=== PATIENT | female | born 1975 | race Caucasian/White ===

== ENCOUNTER 2018-12-05 22:34 | Observation (INO) | payer OTHER, SELFPAY ==
[2018-12-05 22:35] VITALS: BP 171/109; PULSE 94; RESP 18; TEMP 37.2; O2SAT 99; BMI 23.1
--- NOTE | 2018-12-05 22:51 | EKG12_ITS ---
Test Reason : MENTAL HEALTH Blood Pressure : / mmHG Vent. Rate : 092 BPM Atrial Rate : 092 BPM P-R Int : 114 ms QRS Dur : 070 ms QT Int : 394 ms P-R-T Axes : 060 060 066 degrees QTc Int : 487 ms Normal sinus rhythm Prolonged QT Abnormal ECG Reconfirmed by GANGA MARTIN, CHARLENE ([id number]), staff editor LATANYA IGNACIO ([id number] on 12/12/2018 9:02:27 AM Referred By: BHUMIKA Confirmed By:CHARLENE SCHULER MD
--- NOTE | 2018-12-05 23:35 | ED.RN ---
PT NOT COOPERATIVE. REPEATING PHRASES. VERBALLY CHALLENGING. DOES NOT EASILY FOLLOW DIRECTIONS.
[2018-12-05 23:39] LABS: Internal QC Validated? YES +Cl - CLEAR BKGD; Pregnancy, Urine Negative Negative
[2018-12-05 23:41] LABS: Bacteria 0 SEEN /hpf (None Seen); Mucous, Urine 0 SEEN /hpf (<or=2+); Red Blood Cells-Urine 0 SEEN /hpf (0-5); White Blood Cells 0 SEEN /hpf (0-5)
[2018-12-05 23:47] LABS: Color, Urine Straw (Yellow); Glucose, Dipstick Normal (Normal); Ketone-Dipstick Negative (Negative); Leukocyte Esterase-Dipstick Negative /ul (Negative); Nitrite-Dipstick Negative (Negative); Occult Blood-Urine Negative /ul (Negative); Protein-Dipstick Negative (Negative); Specific Gravity, Urine 1.005 (1.002-1.030); Urine Bilirubin Dipstick Negative (Negative); Urine Clarity Clear (Clear); Urine Urobilinogen Normal (Normal)
[2018-12-05 23:49] LABS: Amphetamine Urine VISTA NEGATIVE (<1000 ng/mL); Barbiturate Urine VISTA NEGATIVE (< 200 ng/mL); Benzodiazepine Urine VISTA NEGATIVE (< 200 ng/mL); Cocaine Urine VISTA NEGATIVE (< 300 ng/mL); Ecstacy Urine VISTA NEGATIVE (< 500 ng/mL); Methadone Urine VISTA NEGATIVE (< 300 ng/mL); PCP Urine VISTA NEGATIVE (< 25 ng/mL); THC Urine VISTA POSITIVE (< 50 ng/mL); Vista UDS pH Range 6
[2018-12-05] MEDS: Ziprasidone IM 20 MG/ML VIAL IM (23:52)
[2018-12-05 23:54] LABS: Squamous Epithelial Cells - UA 0-5 SEEN /hpf (5-10)
[2018-12-06] VITALS (18 sets, daily range): BP systolic 88–125; BP diastolic 51–94; PULSE 62–85; RESP 15–18; TEMP 36.8–37.3; O2SAT 93–99; BMI 23.1; BMI 20.1
--- NOTE | 2018-12-06 00:23 | ED.DCSUM_ITS ---
- ER Visit Summary Date of Service: 12/06/18 Chief Complaint: Change in mental status History of Present Illness: The patient is a 43 F presenting for evaluation secondary to change in status. Patient has no prior history of psychiatric disease, has been clean from alcohol and drugs for quite some time but did have a past history of IV drug abuse. Patient's states that she started treatment for bronchitis 2 days ago with azithromycin and prednisone. He reports that she was acting somewhat abnormally last night, but was able to basically come back to baseline and sleep. However, today he reports that he got a call from someone that she was acting completely and totally abnormal and EMS was called to bring the patient to the emergency department. On presentation to the emergency department, the patient is paranoid, reports hallucinations, is combative and appears to have some flight of ideas. denies that she has had recent head injuries. He does not think that she has relapsed into drug abuse or alcohol abuse. Additional review of systems from the patient is otherwise unable to be obtained due to her level of uncooperativeness Physical Examination: Well-nourished well-developed age-appropriate female sitting in the bed guarded but not in physiologic distress. Normal vital signs normal temperature. Head normocephalic. PRL, EOMI, no evidence of nystagmus. Moist mucous membranes. Neck was supple. Heart was regular rate and rhythm, lungs sounds clear. Abdomen soft and nontender. Back nontender, extremities nontender nonedematous. Skin normal color no rash. Patient was alert and oriented to person. She is able to ambulate and exhibits no lateralizing neurological deficits. She has incoherent thoughts as she seems to be prefixed on God, she is very paranoid with poor insight and poor judgment and reporting hallucinations. Test Results: EKG has a significant amount of artifact but shows no signs of arrhythmia and a sinus rate of 92. Urinalysis is negative. Toxicology screen positive for THC which the patient's states is occasional and recreational, CBC chemistry liver unremarkable. Carbon monoxide mildly elevated at 8. Ethanol level negative. Ammonia level negative. CT brain negative. Emergency Department Course and Treatment: Patient presented secondary to altered mental status. On interviewing the patient she seems like she potentially has an element of psychosis as she is prefixed on whether there is one or more than one God, she is making people repeat things #3 or #6 times as if she is prefixed on these numbers, she has no insight and no judgment, and is occasionally combative. Patient was not cooperating with workup and I was concerned for the possibility of underlying medical issue causing this, so she was given Geodon and subsequently Ativan. Workup as noted above is negative. Patient has no prior history of psychiatric disease and does have recent history of being placed on prednisone for bronchitis. 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 I believe the patient requires admission for observation until this resolves. Hospitalist after evaluating the patient feels that due to the psychosis involved, the patient needs a psyc eval and potential psyc disposition. The patient is currently too sedate to undergo psyc eval, so she will be observed until she is awake enough to speak with the crisis counselor. Disposition: Admission pending crisis eval Impression: 1. 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 It may contain incorrect words, spelling, and punctuation that were not noted in review of the chart prior to signing ED Disposition - Plan for ED Patient: Referrals: Tnoi Yancey MD [Primary Care Provider] -
[2018-12-06] MEDS: LORazepam 2 MG/ML Syringe IM (00:29)
[2018-12-06 00:39] LABS: Absolute Lymphocyte Count 2.18 X10^3/ul (0.83-4.51); Absolute Neutrophil Count 5.7 X10^3/uL (2.0-7.7); Basophil# 0.02 X10^3/uL; Basophil% 0.2 % (0-1); Eosinophil# 0.03 X10^3/uL; Eosinophils% 0.3 % (0-5); Hematocrit 44.5 % (37-47); Hemoglobin 14.8 g/dl (12.0-15.0); Lymphocyte # 2.18 X10^3/ul (4.0); Lymphocyte % 25.2 % (19-41); Mean Corp Hgb Conc 33.3 g/gl (32-36); Mean Corpuscular Hgb 32.3 pg (27.0-32.0); Mean Corpuscular Volume 97.2 fL (81-99); Mean Platelet Vol. 9.7 fl (6.2-12.0); Monocyte# 0.71 X10^3/uL; Monocyte% 8.2 % (0-10); Neutrophil # 5.68 X10^3/uL (2.7-7.7); Neutrophil % 65.9 % (47-70); Platelet Count 222 K/mm3 (150-450); RBC Distribution Width CV 13.1 % (11.6-14.6); RBC Distribution Width SD 46.2 fl (35.1-43.9); Red Blood Count 4.58 M/mm3 (4.2-5.4); White Blood Count 8.6 K/mm3 (4.4-11.0)
[2018-12-06 00:40] LABS: Carboxyhemoglobin Frac (CO) 8.5 % (0.0-1.5)
[2018-12-06 00:43] LABS: POSITIVE COUNT NO; POSITIVE DIFFERENTIAL NO; POSITIVE MORPHOLOGY NO
[2018-12-06 00:48] LABS: AST(SGOT) 11 U/L (15-37); Alanine Aminotransfer ALT/SGPT 19 U/L (13-56); Albumin, Serum 3.8 g/dL (3.2-5.0); Alkaline Phosphatase 100 U/L (45-117); Anion Gap 10 (5-15); BUN 6 mg/dL (7-18); BUN/Creat Ratio 9.3 RATIO (10-20); Bilirubin, Direct 0.17 mg/dL (0.00-0.30); Calcium,Total 8.4 mg/dL (8.5-10.1); Chloride 108 mmol/L (98-107); Creatinine, Serum 0.65 mg/dL (0.55-1.02); EST Glomerular Filtration Rate 107 mL/min (>60); Est Glom Filt Rate - Afr Amer 130 mL/min (>60); Estimated Creatinine Clearance 98.35 ml/min; Globulin 3.6 g/dL (2.2-4.2); Glucose 103 mg/dL (74-106); Potassium 3.2 mmol/L (3.5-5.1); Protein, Total 7.4 g/dL (6.4-8.2); Sodium Level 143 mmol/L (136-145)
[2018-12-06 01:23] LABS: Alcohol, Blood (Medical)-Serum < 3.0 mg/dL
--- NOTE | 2018-12-06 03:08 | ED.RN ---
dr almeida awareof bp 88/60 with map of 69.no new orders.
--- NOTE | 2018-12-06 04:53 | ED.RN ---
caisson worker was here and pt would not wake up to talk to her.stated she would be back if she is awake and still needing her assistance.
--- NOTE | 2018-12-06 09:39 | ED.RN ---
PT IS AWAKE AND REQUESTING ORANGE JUICE. IS AT BEDSIDE. CRISIS IS CALLED TO EVALUATE.
[2018-12-06] MEDS: LORazepam 1 MG Tablet PO ×2 (10:56→13:18)
[2018-12-06] MEDS: HYDROcodone Bitartrate/Apap 5/325 Tablet PO (10:56)
--- NOTE | 2018-12-06 13:06 | NURSING ---
HOSPITALIST PAGED FOR ADMISSION.
--- NOTE | 2018-12-06 13:15 | CM.ED ---
Social Work Note Crisis evaluated and pt is not presently expressing suicidal ideation, homicidal ideation or other means that would require psychiatric hospitalization. Psychosis is believed to have been induced by prednisone, and therefore if medically induced not psychiatrically. Pt does not have a psychiatric history. Discussed with physician and physician will contact hospitalist to discuss admission now that pt has been cleared by crisis. Jenny Chua, SOFTWARE QUALITY TESTER, GARRETT
[2018-12-06] MEDS: CYCLOBENZAPRINE HCL 5 MG TABLET PO (17:21)
[2018-12-06] MEDS: Gabapentin 300 MG Capsule PO (17:21)
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
[2018-12-06] MEDS: Ipratropium/Albuterol Sulfate 3 ML AMPUL.NEB INHALATION (19:06)
[2018-12-06] MEDS: Budesonide Respules 0.5 MG/2 ML AMPUL.NEB. INHALATION (19:06)
[2018-12-06] MEDS: QUEtiapine 25 MG Tablet PO (19:07)
--- NOTE | 2018-12-06 23:54 | CT_ITS ---
STUDY: CT BRAIN WITHOUT CONTRAST REASON FOR EXAM: Female, 43 years old. Altered mental status, elevated blood pressure. History of cervical cancer, COPD, hypertension, MS, spinal stenosis. RADIATION DOSAGE (If Supplied By Facility): CTDIvol = ( 44.99 ) mGy, DLP = ( 762.36 ) mGycm TECHNIQUE: Transaxial CT imaging of the brain was performed without administration of intravenous contrast material. Multiplanar coronal and sagittal images were reformatted. Individualized dose optimization techniques were used for this CT. COMPARISON: CT brain noncontrast 09/06/2015. 08/19/2015. 02/25/2015. FINDINGS: Normal soft tissue structures. Normal calvarium. Normal size ventricles and extra-axial spaces for the patient's age. Subcortical white matter low attenuation seen to a similar degree on most recent exam. Normal basal ganglia and thalami. Normal brainstem. Normal cerebellum. There is no intracranial hemorrhage. There are no findings of an acute ischemic infarction. Mild mucosal thickening of the ethmoid sinuses. The bilateral mastoid air cells are clear. CT/Brain/Head without Contrast IMPRESSION: Bilateral subcortical white matter disease which can be seen with MS, unchanged since most recent exam. There is no acute intracranial pathology. Electronically Signed: Dinah Crandall MD at 1:42 EST , Service support ,
[2018-12-07] VITALS (9 sets, daily range): BP systolic 123–132; BP diastolic 79–97; PULSE 79–96; RESP 16–20; TEMP 36.5–36.8; O2SAT 96–100
[2018-12-07] MEDS: Ipratropium/Albuterol Sulfate 3 ML AMPUL.NEB INHALATION ×3 (01:14→22:13)
[2018-12-07] MEDS: LORazepam 0.5 MG Tablet PO (05:22)
[2018-12-07] MEDS: Acetaminophen 325 MG Tablet 650 MG PO (06:12)
[2018-12-07] MEDS: QUEtiapine 25 MG Tablet PO ×2 (06:45→10:27)
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
[2018-12-07] MEDS: Gabapentin 300 MG Capsule PO (09:55)
[2018-12-07] MEDS: Azithromycin 250 MG Tablet PO (09:55)
[2018-12-07] MEDS: 0.9% NaCl Peripheral Flush Adult/Peds IV ×2 (09:56→19:16)
[2018-12-07] MEDS: LORazepam 2 MG/ML Syringe IV (09:57)
--- NOTE | 2018-12-07 11:31 | CPS ---
Placed on 10LPM High Flow Cannula per Dr. Cantor
[2018-12-07 11:46] LABS: Carboxyhemoglobin Frac (CO) 2.3 % (0.0-1.5)
[2018-12-07] MEDS: Budesonide Respules 0.5 MG/2 ML AMPUL.NEB. INHALATION ×2 (13:52→22:13)
[2018-12-07] MEDS: clonazePAM 1 MG Tablet PO ×2 (13:57→21:33)
[2018-12-07] MEDS: LORazepam 2 MG/ML Syringe 1 MG IV (19:16)
[2018-12-07] MEDS: QUEtiapine 25 MG Tablet 50 MG PO (21:33)
[2018-12-08 05:37] VITALS: BP 112/80; PULSE 80; RESP 18; TEMP 36.6; O2SAT 100
[2018-12-08] MEDS: CYCLOBENZAPRINE HCL 5 MG TABLET PO (05:45)
[2018-12-08] MEDS: clonazePAM 1 MG Tablet PO (05:45)
[2018-12-08] MEDS: Acetaminophen 325 MG Tablet 650 MG PO (05:45)
[2018-12-08] MEDS: Gabapentin 300 MG Capsule PO (05:45)
[2018-12-08 06:45] VITALS: O2SAT 100
[2018-12-08] MEDS: 0.9% NaCl Peripheral Flush Adult/Peds IV ×3 (06:54→07:55)
[2018-12-08] MEDS: LORazepam 2 MG/ML Syringe 1 MG IV ×2 (06:55→07:54)
--- NOTE | 2018-12-08 07:36 | NURSING ---
Pt hysterically crying, rocking herself back and forth in bed holding a wash rag to her head talking on the phone. Pt claims that teacher [employer] nurse did not give her her Ativan. I want my doctor called now. Pt screaming that at nurse several times. This nurse called Dr. Cantor to inform. Ativan 1mg IV x1 ordered.
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
[2018-12-08 07:55] VITALS: BP 105/82; PULSE 75; RESP 20; TEMP 36.9; O2SAT 99
[2018-12-08 08:40] LABS: Carboxyhemoglobin Frac (CO) 2.6 % (0.0-1.5)
[2018-12-08] MEDS: QUEtiapine 25 MG Tablet PO (10:23)
[2018-12-08] MEDS: Azithromycin 250 MG Tablet PO (10:23)
--- NOTE | 2018-12-08 11:25 | DCINST_ITS ---
- Discharge Diagnoses Current Active Problems: Current Active and Chronic Problems Change in mental status (Acute) You will use the following diet at home:: No restrictions Your food should be the consistency of: Regular Your liquids should be the consistency of: Regular/Thin Discharge Activity: Return to Normal Activity Call your doctor if you observe: Fever of 101 or Higher, - - suicidal ideation or homicidal ideation Additional Instructions: I think that you will not get better unless you get some excellent psychotherapy. Medication alone is not going to fix your problems. You are going to have triggers when you have PTSD. There will always be triggers. What you need to learn is how to cope with the triggers and change your responses to the triggers. I am referring you to the Behavioral Health Program here at the hospital. If they can not help you they will be able to provide you resources. Allergies/Adverse Reactions: Allergies amitriptyline Allergy (Verified 12/06/18 00:31) Swelling azithromycin [From Zithromax] Allergy (Verified 12/08/18 10:36) Other gets very agitated with it cephalexin monohydrate [From Keflex] Allergy (Verified 12/06/18 00:31) Hives meloxicam [From Mobic] Allergy (Verified 12/06/18 00:31) Swelling morphine Allergy (Verified 12/06/18 00:31) Hives NSAIDS (Non-Steroidal Anti-Inflamma Allergy (Verified 12/06/18 00:31) Shortness of breath prednisone Allergy (Verified 12/06/18 00:31) Shortness of breath amoxicillin trihydrate [From Augmentin] Adverse Reaction (Verified 12/06/18 00:31) Vomiting hydroxyzine [From Vistaril] Adverse Reaction (Verified 12/06/18 16:39) Other agitation potassium clavulanate [From Augmentin] Adverse Reaction (Verified 12/06/18 00:31) Vomiting Medications to take at Discharge Cyclobenzaprine HCl 5 mg PO DAILY 12/06/18 Gabapentin [Neurontin] 300 mg PO TID 12/06/18 Alprazolam [Xanax] 0.25 mg PO Q4H PRN PRN #10 tab 12/08/18 Nicotine [Nicoderm Cq] 21 mg TRANSDERM. DAILY #28 patch 12/08/18 Quetiapine Fumarate [Seroquel] 50 mg PO QHS #90 tab 12/08/18 The following prescriptions were given: Alprazolam [Xanax] 0.25 mg PO Q4H PRN PRN #10 tab PRN Reason: panic attack Nicotine [Nicoderm Cq] 21 mg TRANSDERM. DAILY #28 patch Quetiapine Fumarate [Seroquel] 50 mg PO QHS #90 tab Primary Care Physician: Toni Yancey MD [Primary Care Provider] - Test Results: Test results from this visit will be discussed in further detail at your follow- up appointment, if applicable. Proposed Discharge Date: 12/08/18
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
--- NOTE | 2018-12-08 12:32 | NURSING ---
LATE ENTRY- NICOTINE PATCH REMOVED AND DISCARDED PRIOR TO PT DISCHARGE AT PT STATES SHE IS GOING TO SMOKE WHEN SHE GETS HOME
== END 2018-12-08 12:15 | disposition home or self-care (01) ==
LOC: ED 12-06 10:30 → MS2 12-06 15:51
PROVIDERS: Admitting Provider Internal Medicine; Emergency Provider Emergency Medicine; Family Provider Family Medicine; PCP Family Medicine; Visit Provider Internal Medicine
DX: R41.82 Altered mental status, unspecified (principal); M79.7 Fibromyalgia; J44.9 Chronic obstructive pulmonary disease, unspecified; G89.29 Other chronic pain; F43.12 Post-traumatic stress disorder, chronic; G35 Multiple sclerosis; F17.210 Nicotine dependence, cigarettes, uncomplicated; Z79.52 Long term (current) use of systemic steroids; F10.21 Alcohol dependence, in remission; M47.896 Other spondylosis, lumbar region
CPT/HCPCS: 70450; 80048; 80076; 80307; 80320; 81001; 81025; 82140; 82375; 84443; 85025; 93005; 94640; 96372; 96374; 96376; 97802; 99218; 99285; A4216; G0378; G0480; J3486

== ENCOUNTER 2018-12-12 08:52 | Outpatient (RCR) | payer OTHER, SELFPAY ==
[2018-12-06 16:41] VITALS: BMI 20.1
--- NOTE | 2018-12-12 09:53 | BH.MDN ---
Multi-Disciplinary Note - Note 30-min Individual Time Started:: 09:00 Date: 12/12/18 Purpose of session/treatment goals addressed:: IOP therapist completing paperwork with patient, however pt recieved a phone call during paperwork process which upset patient. Purpose of session was to process current stressors and identify what can help pt manage anxiety throughout groups. Eye Contact:: Fair Motor Activity:: Restless Appearance:: Casual Speech:: Soft Mood:: Anxious Affect:: Congruent Thoughts:: Logical, No evidence of hallucinations/delusions noted Staff Interventions:: Therapist used open ended questions to elicit pt's current symptoms and stressors. Therapist processed current stressor, validated pt's emotions. Therapist assisted pt with identifying strategies that can help pt manage anxiety during group to help her make it through her first day in [facility]. Client Response:: Client reported she just recieved a phone call from her sister in which she was told her mom was admitted to the hospital last night for pneumonia. Client reported she also found out her brother has a 100% blockage in one of his heart valves and a 40% block in a second heart valve. Client became emotional after finding out these stressors. Client shared she knows she can't do anything about her families medical problems right now. Client reported she plans to call her mom today after group to check-in. Client stated she is feeling really nervous about going into group therapy. Reported I just want to go home. Through discussion client able to connect if she doesn't get help, she won't get better. Client open to suggestions on what can help her get through the IOP day. Client agreed if feeling overwhelming anxiety she will take a break out of the group room and either go outside for fresh air or talk with one of the [facility] therapists. Client reported she is comfortable with plan and ready to join the [facility] group. Risks/Concerns:: Client denies current suicidal ideation, plan or intention to date. Progress Toward Goals/Plan:: No progress noted given today is first day in [facility]. Session focused on assisting pt with managing anxieties so she is able to join the rest of the group. Time Stopped:: 09:30
--- NOTE | 2018-12-12 11:15 | BH.SGPN.GN ---
Behaviors/Verbalizations/Mental Status: []Client alert and oriented, casual dress, neatly groomed. Eye contact good. Motor activity good. Speech within normal limits. Affect congruent to mood, mood anxious, frustrated with her current situation. Thoughts linear, logical, no signs of hallucinations or delusions. Client Response/Progress/Benefit: []Client responded well to session, active throughout session. Client engaged in the activity that demonstrated the effort and time it takes to challenge distortions. Client shared ?sometimes we don?t want to challenge distortions because we feel too low.? Client helped the group practice challenging cognitive distortions and did well to identify distortions and help peers come up with alternative, rational responses. Client assisted the group in learning ways to combat negative thinking and client stated she plans to ask herself ?is it helpful? when she recognizes a negative thought. Client stated this will help her ?because right now I?m miserable and stuck? Client appeared to benefit from practicing thought challenging and gaining awareness of the effort it takes to reframe negative thoughts. Client?s first day in IOP. Client to continue to prevent decompensation and increase mood stability.
--- NOTE | 2018-12-12 12:02 | BH.MDN_ITS ---
Multi-Disciplinary Note - Note 30-min Individual Time Started:: 09:00 Date: 12/12/18 Purpose of session/treatment goals addressed:: IOP therapist completing paperwork with patient, however pt recieved a phone call during paperwork process which upset patient. Purpose of session was to process current stressors and identify what can help pt manage anxiety throughout groups. Eye Contact:: Fair Motor Activity:: Restless Appearance:: Casual Speech:: Soft Mood:: Anxious Affect:: Congruent Thoughts:: Logical, No evidence of hallucinations/delusions noted Staff Interventions:: Therapist used open ended questions to elicit pt's current symptoms and stressors. Therapist processed current stressor, validated pt's emotions. Therapist assisted pt with identifying strategies that can help pt manage anxiety during group to help her make it through her first day in [facility]. Client Response:: Client reported she just recieved a phone call from her sister in which she was told her mom was admitted to the hospital last night for pneumo cristina. Client reported she also found out her brother has a 100% blockage in one of his heart valves and a 40% block in a second heart valve. Client became emotional after finding out these stressors. Client shared she knows she can't do anything about her families medical problems right now. Client reported she plans to call her mom today after group to check-in. Client stated she is feeling really nervous about going into group therapy. Reported I just want to go home. Through discussion client able to connect if she doesn't get help, she won't get better. Client open to suggestions on what can help her get through the IOP day. Client agreed if feeling overwhelming anxiety she will take a break out of the group room and either go outside for fresh air or talk with one of the [facility] therapists. Client reported she is comfortable with plan and ready to join the [facility] group. Risks/Concerns:: Client denies current suicidal ideation, plan or intention to date. Progress Toward Goals/Plan:: No progress noted given today is first day in [facility]. Session focused on assisting pt with managing anxieties so she is able to join the rest of the group. Time Stopped:: 09:30
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
--- NOTE | 2018-12-13 14:08 | BH.DR.ITP ---
Initial Treatment Plan - Patient Information Visit Information: ADMISSION DATE: 12/12/18 EXPECTED LOS: 4-6 weeks Diagnoses:: RYAN, persistent depressive disorder, borderline personality disorder, cannabis use disorder - Problems/Symptoms Problem #1:: high emotionality Symptom:: Her moods are highly reactive, she becomes higly emotional with emotional dysregulation Problem #2:: depression Symptom:: low mood, anhedonia, poor sleep and energy level Problem #3:: anxiety Symptom:: Inability to handle any stress, anxiety, worry
--- NOTE | 2018-12-17 10:15 | BH.SGPN.GN ---
Behaviors/Verbalizations/Mental Status: []Pt eye contact good, casually dressed, motor activity appropriate, speech normal rate and tone, mood anxious, congruent affect, thoughts linear and intact, no evidence of delusions or hallucinations. Client Response/Progress/Benefit: []Pt engaged and active throughout session as evidenced by pt contributing thoughts and ideas to discussion and attentive to peers. When processing activity pt identified when have too many responsibilities to ?juggle? it can be hard to keep going, which sometimes results in giving up. Pt agreed with peers it's important to be resilient so can bounce back from hardships and crises. Pt engaged in small group discussion about the various strategies that can help strengthen one's resilience. Pt seemed to benefit from increased awareness of what strategies can help strengthen resilience. Narrative Note: []
--- NOTE | 2018-12-17 11:15 | BH.SGPN.GN ---
Behaviors/Verbalizations/Mental Status: []Client alert and oriented, casually dressed, hygiene good. Eye contact fair. Motor activity appropriate. Speech tangential, off topics at times. Affect congruent to mood, mood euthymic for most of group, but reporting high anxiety near the end. Thoughts linear, logical, no signs of hallucinations or delusions Client Response/Progress/Benefit: []Client responded well to session, actively engaged, but near the end became highly anxious. Client participated in the group activity and shared after that in order to be successful the group needed ?to use each other.? Client helped the group review the strategies to increase personal resilience. Client received a stress ball to help client remember the resilience factors. Client reported she would like to increase her resilience by accepting that change is apart of living. Client reported her anxiety was increasing while thinking about a small goal sharing ?I can?t change my supports who make it harder for me to change.? Client was able to de-escalate with therapist?s support. Client then able to identify a small goal of ?accepting where I am right now? and accepting help from positive supports in IOP. Client appeared to benefit from setting a goal to increase her resilience. Progress limited as client has not attended many IOP sessions and continues to experience mood instability. However, client has responded well to crisis intervention strategies to reduce panic in the moment. Client to continue IOP to increase mood stability.
--- NOTE | 2018-12-18 10:54 | BH.COMM ---
Communication Note - Communication with Client Communication Note: Therapist called client as she no called no showed for group this morning. Client stated her phone is out of minutes, which was why client did not call. Client reports she is sick today and will miss scheduled individual and group sessions today. Client reports plan to reschedule for tomorrow 12/19/18.
--- NOTE | 2018-12-19 09:04 | BH.SGPN.GN ---
Behaviors/Verbalizations/Mental Status: [Eye contact good. Motor activity restless fidgeting in seat and going through items in her bag. Appearance casual, appropriately groomed. Speech tangential, rambling. Mood anxious. Affect is congruent. Thoughts often tangential or circumstantial in nature. No evidence of delusions or hallucinations. Reviewed daily check in sheet and no reports of suicidal ideations or intent] Client Response/Progress/Benefit: [Client receptive of session and did well to provide input to discussion and supportive feedback/encouragement to fellow participants. Client indicated that her mood is currently ?scattered? due to having a variety of things happen over the weekend and ongoing stressors she continues to ruminate on. Client identified current mental health win as coming into group despite not wanting to and doing so without the assistance of her . She went on to discuss that her relationship is both a source of support as well as an ongoing stressor. Client further reflected that inconsistences in her ?s ability to understand her mental health has been negatively impacting her and led to making an impulsive decision to leave over the weekend. Client did well to identify that setting boundaries with her supports is important but that she could benefit from improving how she communicates these needs to prevent additional relationship tension. Client benefited from the structure and support of the group as well as being able to openly vent frustrations/concerns. Client to continue IOP tx to prevent decompensation, improve emotion regulation, and increase symptom management.]] Narrative Note: []
--- NOTE | 2018-12-19 10:20 | BH.SGPN.GN ---
Behaviors/Verbalizations/Mental Status: []Client alert and oriented, neatly dressed and groomed. Eye contact good. Motor activity appropriate. Speech normal tone, off topic at times. Affect congruent, mood euthymic, anxious. Thoughts linear, logical, no signs of hallucinations or delusions. Client Response/Progress/Benefit: []Client responded well to session, active participant in discussion, but off topic at times. Client connected with the quote, sharing ?you can find good in the bad.? Client shared a person can experience internal and external conflict. Client reported she frequently experiences both and that her internal conflict tends to be negative thoughts. ?Client stated fear of the unknown, assumptions, and toxic people have impacted how client responds to conflict. Client helped the group identify the different types of conflict resolution styles. Client reported she tends to mostly use the competing type. Client shared at times this can help client support professional for her needs, but at other times it hurts her personal relationships. Client stated she wants to learn how to take breaks during conflict and ?sit on stuff before I respond.? Client appeared to benefit from gaining awareness of the different types of conflict resolution styles and how this impacts client?s mental health. Client appears to be progressing by gaining self-awareness. Client to continue IOP to prevent decompensation and increase emotional regulation skills.
--- NOTE | 2018-12-19 11:20 | BH.SGPN.GN ---
Behaviors/Verbalizations/Mental Status: [Client maintained good eye contact. Motor activity is appropriate. Appearance is casual and neat. Often rambling speech, appropriate tone. Mood is euthymic, anxious. Affect congruent. Thoughts are linear, mostly on topic though struggling at times with being tangential in feedback provided. No evidence of psychosis.] Client Response/Progress/Benefit: [Client a positive and actively engaged participant in group discussion, though did at times struggle in remaining on topic. Client made several connections to materials discussed regarding conflict management. She additionally did well to remain engaged in activity and identify connections between activity and own approach to conflict. Client provided several personal examples throughout discussion of conflict approach. Client did well to reflect on personal conflict style and indicated she can relate to the competing style of conflict which has been both a positive and negative component of her mental health. Provided further reflection that this style has led her to set boundaries with supports but caused relationship tension as a result. Client worked with the group to identify barriers to effectively managing conflict and indicated personal barriers may include difficulties in regulating emotions and feeling unsupported by her supports. Client also did well to work with the group on identifying strategies to promote better management of conflict which she indicated include being ?open minded? as most impactful for her. Benefited from group as she was able to increase insights regarding conflict and conflict resolution. Client displaying progress in ability to make connections with activity and remain regulated throughout. Client recommended continued IOP tx to improve emotion regulation, increase insight, and improve use of healthy communication techniques] Narrative Note: []
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
--- NOTE | 2018-12-20 10:31 | BH.COMM ---
Communication Note - Communication with Client Communication Note: pt left early due to illness. Scheduled to have individual session this afternoon however unable to attend. Reports she will be back to the program next week.
--- NOTE | 2018-12-20 14:33 | BH.NOTE ---
BH: Inpatient Note - Notes Behavioral Health Inpatient Note: The following prescriptions were called into [facility] in [place], [place], per verbal order from Dr. Doan: Cymbalta 60mg PO daily, #30, NO refills gabapentin 600mg PO in the morning and midday, 900mg PO QHS, #210 (if 300mg), NO refills Seroquel 25mg PO QAM, #30, NO refills Seroquel 100mg PO QHS, #30, NO refills Called the client to inform of the medication changes and to DC the Latuda she had trialed last week. Client verbalized the increased QHS doses of Seroquel and gabapentin. Will start the Cymbalta after she picks it up at the pharmacy. She denies questions or concerns at this time. Rosenda Blanco, MSN, RN
--- NOTE | 2018-12-24 15:18 | BH.COMM ---
Communication Note - Communication with Client Communication Note: Client called into IOP to cancel her scheduled individual and group sessions today due to not feeling well. This therapist attempted to call client to reschedule, but therapist did not get an answer and could not leave a message. Therapist to continue to follow up with client.
--- NOTE | 2018-12-25 14:24 | BH.COMM ---
Communication Note - Communication with Client Communication Note: Client called into to [facility] and spoke to this therapist. Client sounded anxious on the phone and expressed frustration about not getting prescribed Benzodiazepines at [facility]. Client shared she is having trouble with panic attacks and nightmares. Therapist informed client that historically [facility] does not prescribe Benzodiazepines due to medication monitoring concerns and risk, but that client was welcome to discuss this with [facility] psychiatrist or seek a second opinion. Therapist encouraged client to use coping skills learned in [facility] sessions to help manage panic attacks and also encouraged client to continue the IOP program. Client denied suicidal ideation and reported ability to maintain safety today. Therapist to follow up with treatment team on medication concerns.
--- NOTE | 2018-12-25 14:34 | BH.COMM_ITS ---
Communication Note - Communication with Client Communication Note: Client called into to [facility] and spoke to this therapist. Client sounded anxious on the phone and expressed frustration about not getting prescribed Benzodiazepines at [facility]. Client shared she is having trouble with panic attacks and nightmares. Therapist informed client that historically [facility] does not prescribe Benzodiazepines due to medication monitoring concerns and risk, but that client was welcome to discuss this with [facility] psychiatrist or seek a second opinion. Therapist encouraged client to use coping skills learned in [facility] sessions to help manage panic attacks and also encouraged client to continue the IOP program. Client denied suicidal ideation and reported ability to maintain safety today. Therapist to follow up with treatment team on medication concerns.
--- NOTE | 2018-12-26 14:15 | BH.COMM ---
Communication Note - Communication with Client Communication Note: Client missed her scheduled IOP group and individual sessions today. Client has cancelled the last three scheduled sessions. Due to cancellations and schedule conflicts, this therapist has not been able to meet with client individually. Client reported she continues to have ongoing transportation issues and asked if [facility] could provide transportation. Therapist shared that the hospital?s transportation would not be able to accommodate client until February due to high volume of patients needing transportation. Client was tearful on the phone and shared she will talk with her about getting a ride. Client stated money is tight until next which is impacting client?s transportation. Therapist gave client phone numbers for local community resources. Client demonstrated verbal understanding that she will need to attend [facility] 2-3 times a week if she wants to continue in the program. Client continues to have medication concerns and reported accepting that she will not get prescribed benzodiazepines at [facility]. Per client report, she would like to meet with [facility] psychiatrist to discuss alternative medications as she reports currently experiencing side effects.
--- NOTE | 2018-12-26 14:30 | BH.COMM_ITS ---
Communication Note - Communication with Client Communication Note: Client missed her scheduled IOP group and individual s essions today. Client has cancelled the last three scheduled sessions. Due to cancellations and schedule conflicts, this therapist has not been able to meet with client individually. Client reported she continues to have ongoing transportation issues and asked if [facility] could provide transportation. Therapist shared that the hospital?s transportation would not be able to accommodate client until February due to high volume of patients needing transportation. Client was tearful on the phone and shared she will talk with her about getting a ride. Client stated money is tight until next which is impacting client?s transportation. Therapist gave client phone numbers for local community resources. Client demonstrated verbal understanding that she will need to attend [facility] 2-3 times a week if she wants to continue in the program. Client continues to have medication concerns and reported accepting that she will not get prescribed benzodiazepines at [facility]. Per client report, she would like to meet with [facility] psychiatrist to discuss alternative medications as she reports currently experiencing side effects.
--- NOTE | 2018-12-27 09:10 | BH.SGPN.GN ---
Behaviors/Verbalizations/Mental Status: []Client alert and oriented, casually dressed and groomed. Eye contact good. Motor activity restless-getting out of her chair and frequent movements. Speech rapid, tangential. Affect full, mood euthymic. Thoughts linear, logical, no signs of hallucinations or delusions. Reviewed client?s symptom tracker, no risk for suicidal ideation, plan, or intent as of 12/27/18. Client Response/Progress/Benefit: []Client responded well to session, energetic and providing supportive statements to peers. Client reports her emotions continue to be erratic and stated today ?I was really anxious but now I?m in the middle and calmer.? Client?s mental health positives include making it to group today, despite ?everything beating down on me? and getting help [facility] the food [facility] today. Client shared she had a hard time accepting the help at the food pantry, but with group feedback, client recognized that she is strong for being willing to ask for help from others. Client stated money continues to be the ongoing stressor in her life and relationship with her . The group provided different community resources that may help client in her current situation. Client acknowledged that managing her anxiety will help client better manage the stress of finances. Client was reminded of different calming and stress management strategies. Client appeared to benefit from reviewing coping skills and learning about community resources. Client to continue IOP as she continues to have erratic moods and difficulty regulating her emotions.
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
--- NOTE | 2018-12-30 13:39 | BH.COMM ---
Communication Note - Communication with Client Communication Note: Client called into behavioral health tearful and anxious due to a recent fight with her and concerns about medication. Client reported belief that her medication is not working, because she continues to feel panic, and that her is going to leave her because of it. Client recently had a medication change on Sunday12/27/18 so it is difficult to say how effective they are just yet. Therapist was able to deescalate client and calm her down. Client denied feeling at risk to self or others. Therapist and client talked about coping skills client can try today to help manage anxiety. Client agreeable to come into IOP tomorrow. Client asked to have medication concerns passed on to [facility] psychiatrist. Therapist to follow up with treatment team and client.
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
--- NOTE | 2018-12-31 07:48 | BH.COMM_ITS ---
Communication Note - Communication with Client Communication Note: Client called into behavioral health tearful and anxious due to a recent fight with her and concerns about medication. Client reported belief that her medication is not working, because she continues to feel panic, and that her is going to leave her because of it. Client recently had a medication change on Sunday12/27/18 so it is difficult to say how effective they are just yet. Therapist was able to deescalate client and calm her down. Client denied feeling at risk to self or others. Therapist and client talked about coping skills client can try today to help manage anxiety. Client agreeable to come into IOP tomorrow. Client asked to have medication concerns passed on to [facility] psychiatrist. Therapist to follow up with treatment team and client.
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
--- NOTE | 2018-12-31 10:13 | BH.SGPN.GN ---
Behaviors/Verbalizations/Mental Status: []Client alert and oriented, neatly dressed and groomed. Eye contact fair, eyes appeared red and puffy from crying. Motor activity appropriate. Speech within normal limits. Affect flat, mood anxious, depressed. Thoughts linear, logical, no signs of hallucinations or delusions. Client Response/Progress/Benefit: []Client responded well to session, tearful but engaging in activity. Client connected with the topic of failure. Client shared failure is not accomplishing something, and that past experiences and past failure can lead to fear of failure. Client reported that fear of failure can lead to lack of self-destructive behavior. Client agreed with peers that it is possible to change a person?s view of failure by challenging thoughts. Client engaged in a group activity that encouraged the group to overcome fear of failure and challenge their perspective of failure. Client?s affect and mood improved during the activity and she was able to provide feedback. Client appeared to benefit from gaining awareness of how fear of failure negatively impacts mental health. Client to continue IOP to prevent decompensation and increase mood stability.
--- NOTE | 2018-12-31 11:15 | BH.SGPN.GN ---
Behaviors/Verbalizations/Mental Status: [] Eye contact is good. Motor activity is appropriate. Appearance is casual. Speech is Appropriate. Mood is anxious. Affect is congruent. Thoughts are linear and logical. No evidence of psychosis. Client Response/Progress/Benefit: [] Pt participated in the group activity however limited participation in group discussions. Appeared attentive. Choose not to complete worksheet stating my mind is to wound and anxious from yesterday Group identified strategies to overcome fear of failure which included; increased communication, persistence, asking for help, using a sense of humor, re-evaluating expectations and goals, identifying wants vs needs and redefining failure. Appeared to benefit from group as a distraction and to identify how fear of failure has impacted her. Continues to be focused on her anxiety and inability to function at home. Will continue in IOP to increase coping skills for anxiety, decrease anxious thoughts, and improve daily functioning. Narrative Note: []
--- NOTE | 2018-12-31 12:46 | BH.NOTE ---
: Inpatient Note - Notes Behavioral Health Inpatient Note: Client's condition and treatment plan discussed with Dr. Doan via telephone call. The client has continued to decompensate, despite the medication changes and skills utilization last week; see staff documentation for case details. Per telephone order, the following prescription was called into [facility] pharmacy in [place], [place]: clonazepam 0.5mg PO BID #[id number], NO refills Rosenda Blanco MSN, RN
--- NOTE | 2018-12-31 14:18 | BH.COMM ---
Communication Note - Communication with Client Communication Note: Therapist spoke with client's via phone, per [facility] psychiatrist request, to gain collateral on client's worsening symptoms and medication concerns. Client?s shared that client has continued to decompensate despite recent medication changes. Per his report, client continues to have ?up and down moods and flies off the handle.? Client?s mentioned that client also continues to feel high levels of anxiety and that client cannot function when she is home alone. Client?s shared client frequently calls him at work crying and that they have been having more arguments. Client?s reports belief that client could benefit from a medication increase on a short-term basis to help her function, manage symptoms, and get through a difficult financial time. Client?s reports understanding that this increase is not a ?long-term fix? and that a plan will need to be established between client and [facility] psychiatrist. Therapist reminded client's of the family/support sessions offered at [facility]. This therapist to follow up with [facility] treatment team regarding conversation.
--- NOTE | 2018-12-31 14:27 | BH.COMM_ITS ---
Communication Note - Communication with Client Communication Note: Therapist spoke with client's via phone, per [facility] psychiatrist request, to gain collateral on client's worsening symptoms and medication concerns. Client?s shared that client has continued to decompensate despite recent medication changes. Per his report, client continues to have ?up and down moods and flies off the handle.? Client?s mentioned that client also continues to feel high levels of anxiety and that client cannot function when she is home alone. Client?s shared client frequently calls him at work crying and that they have been having more arguments. Client?s reports belief that client could benefit from a medication increase on a short-term basis to help her function, manage symptoms, and get through a difficult financial time. Client?s reports understanding that this increase is not a ?long-term fix? and that a plan will need to be established between client and [facility] psychiatrist. Therapist reminded client's of the family/support sessions offered at [facility]. This therapist to follow up with [facility] treatment team regarding conversation.
--- NOTE | 2018-12-31 14:28 | BH.COMM ---
Communication Note - Communication with Client Communication Note: Pt's condition continues to decompensate despite medication changes and utilization of coping skills. Anxiety keeping pt from functioning at home and from attending IOP. Spoke with pt and with pt's therapist who spoke with pt's . Refer to therapist's note. Spoke with Dr. Doan regarding condition. Recommended to increase Klonopin to 2x daily to manage crisis. He will speak with program nurse regarding verbal orders.
--- NOTE | 2018-12-31 14:30 | BH.MDN_ITS ---
Multi-Disciplinary Note - Note 30-min Individual Time Started:: 12:10 Date: 12/31/18 Purpose of session/treatment goals addressed:: The purpose of this session was to create a crisis prevention plan that included warning signs, triggers, interventions, and supports. Other topics included healthy versus unhealthy relationships. Eye Contact:: Good Motor Activity:: Restless Appearance:: Neat Speech:: Appropriate Mood:: Anxious, Dysthymic Affect:: Congruent - tearful at times Thoughts:: Other - Thought blocking, difficulty paying attention. Staff Interventions:: Therapist used active listening and open-ended questions to gather information on client's crisis warning signs, triggers, and behaviors. Therapist used a crisis prevention plan to help client gain awareness of her personal warning signs and have concrete strategies. Therapist reviewed di fferent intervention techniques that could help client more effectively manage crisis situations. Therapist and client discussed internal and external supports that can be used to manage crisis. Therapist and client reviewed healthy versus unhealthy relationships. Therapist talked with client about the benefits of reaching out to healthy supports and creating new supportive connections. Therapist gave client homework to practice coping skills discussed. Client Response:: Client responded well to session, open to meeting with therapist. Client reported difficulty concentrating, but she was able to work through the crisis prevention worksheet with therapist?s assistance. Client stated she continues to struggle with managing her mental health symptoms and shared I feel panic all day...it's never better. Client recognized that in addition to medication, it is important for client to have awareness of early warning signs and learn coping skills. Client completed the crisis prevention worksheet with therapist. Client identified her crisis problem behaviors to be: losing her temper, crying, and wanting to run away. Client's triggers were not being listened to, people yelling, feeling alone, arguments, and when her goes to work. Client's warning signs were: sweating, red face, acting hyper, racing heart, pacing, being rude, swearing, restlessness, crying, and avoiding people. Client and therapist discussed the important of having awareness of these warning signs so that client can implement interventions to reduce anxiety and manage crisis. Client selected the following interventions as being helpful when she sees warning signs: deep breathing, speaking with a healthy support, coloring, walking, listening to music, drawing, 5-senses, doing chores, cold cloth on her face, and read her bible. Client agreeable to practicing these coping skills consistently, even if client is not in crisis. Client reported that certain people in her life make her feel worse during a crisis because they don't let me talk or give me the time of day. Client was encouraged to turn to positive supports. Risks/Concerns:: Client denies any suicidal or homicidal ideations, plan, or intent as of 12/31/18. Client completed a crisis plan and agreeable to use if she recognizes warning signs. Progress Toward Goals/Plan:: Client continues to show variable progress due to ongoing medication concerns, financial stressors, relationship stressors, and mood dysregulation. Client continues to report feeling panic ?all day,? high anxiety, difficulty concentrating, crying spells, irritability, and inability to function at her baseline. Client also has not been able to develop a consistent schedule at [facility] which could impact her ability to learn and apply coping skills. Client to continue IOP to prevent further decompensation, increase mood stability, and increase healthy coping skills. IOP psychiatrist increased one of client?s medications due to continued decompensation of symptoms. Client is in agreement with plan and acknowledges the need to revaluate moving forward. Time Stopped:: 12:40
--- NOTE | 2019-01-02 09:05 | BH.SGPN.GN ---
Behaviors/Verbalizations/Mental Status: []Pt eye contact good, casually dressed, motor activity appropriate, speech normal rate and tone, mood anxious, congruent affect, thoughts linear and intact, no evidence of delusions or hallucinations. Reviewed client?s symptom tracker, no signs of suicidal ideation, plan, or intent as of today. Client Response/Progress/Benefit: []Pt responded well to session AEB pt listening to others, sharing thoughts and feelings, and providing support to others. Pt reported a positive is being able to get a full 8 hours of sleep last night, which pt stated isn't something that occurs often. Pt shared another positive was taking time to start drawing again because she finds it relaxing and calming. Pt showed her drawings with the group. Pt reported a current stressor is her informing her he put his 2 weeks in at work, which pt reported is making her stress out about finances. Pt shared they are already behind in rent and now concerned about other bills. Pt seemed to benefit from expressing thoughts and connecting with peers. Pt to continue IOP level of care to decrease anxiety, increase use of healthy coping skills and prevent decompensation. Narrative Note: []
--- NOTE | 2019-01-02 10:13 | BH.SGPN.GN ---
Behaviors/Verbalizations/Mental Status: []Client alert and oriented, neatly dressed and groomed. Eye contact good. Motor activity appropriate. Speech within normal limits. Affect congruent, mood euthymic. Thoughts linear, logical, no signs of hallucinations or delusions. Client Response/Progress/Benefit: []Client responded well to session, contributing to discussion. Client connected with the quote and shared not everybody knows how to cope with all their problems in a healthy way. Client reported one cannot keep all problems from happening, but how a person jonathan can make it good or bad. Client stated one can have healthy or unhealthy coping skills and that often people choose unhealthy coping because it's easier. Client called unhealthy coping skills ugly. Client stated although healthy coping skills are harder they have more benefits such as feeling accomplished and better outcomes. Client participated in the group activity and shared you have to have a good base. The group connected the activity to their lives and recognized that it is important to have a good base of healthy internal and external coping skills. Client appeared to benefit from increasing awareness of the benefits of healthy coping skills.
--- NOTE | 2019-01-02 11:15 | BH.SGPN.GN ---
Behaviors/Verbalizations/Mental Status: [] Eye contact is good. Motor activity is appropriate. Appearance is casual. Speech is Appropriate. Mood is anxious. Affect is congruent. Thoughts are linear and logical. No evidence of psychosis. . Client Response/Progress/Benefit: [] Client was an active participant in group activity and discussion. Pt worked with the group to define the categories of coping skills and give examples of each. Coping skills discussed included distraction, emotional release, grounding, self-love, and thought challenging. Pt along with group members contributed examples of coping skills for each category. Pt was attentive and wrote down all the examples given. Benefited from group by identifying several new types of coping strategies. Will continue in IOP to stabilize anxiety, prevent decompensation, and improve daily functioning Narrative Note: []
[2019-01-31 14:44] VITALS: BP 97/63; PULSE 80; RESP 14
== END 2019-01-02 23:59 | disposition home or self-care (01) ==
LOC: BHIOP 08:52
PROVIDERS: Family Provider Family Medicine; PCP Family Medicine; Referring Provider Psychiatry & Neurology Psychiatry; Visit Provider Psychiatry & Neurology Psychiatry
DX: F32.9 Major depressive disorder, single episode, unspecified (principal); F43.22 Adjustment disorder with anxiety; F12.90 Cannabis use, unspecified, uncomplicated; F11.21 Opioid dependence, in remission; F60.3 Borderline personality disorder; G89.29 Other chronic pain; M54.9 Dorsalgia, unspecified; F17.210 Nicotine dependence, cigarettes, uncomplicated; F43.10 Post-traumatic stress disorder, unspecified; F42.9 Obsessive-compulsive disorder, unspecified; Z79.899 Other long term (current) drug therapy; M79.7 Fibromyalgia
CPT/HCPCS: H0035; 90832; 90853

== ENCOUNTER 2019-01-03 09:00 | Outpatient (RCR) | payer OTHER, SELFPAY ==
[2018-12-06 16:41] VITALS: BMI 20.1
[2019-01-03 01:37] VITALS: BP 97/63; PULSE 80; RESP 14
--- NOTE | 2019-01-03 09:05 | BH.SGPN.GN ---
Behaviors/Verbalizations/Mental Status: [Eye contact is good. Motor activity is appropriate. Appearance is casual, grooming appropriate. Speech is Appropriate rate and tone, at times tangential. Mood is anxious, euthymic. Affect is congruent. Thoughts are linear and logical. No evidence of psychosis. Reviewed daily check-in sheet and pt denies any active SI, plan, or intent as of this date. ] Client Response/Progress/Benefit: [Pt responded well to session, engaged throughout and open to processing with the group. Pt indicated current emotion as ?satisfied? and discussed that this is due to being able to get to IOP group without using her GPS. Discussed this as a mental health win as she has been to anxious to attempt doing so in the past. Shared additional win as being able to focus on the positives and and use positive self-talk when anxious or overwhelmed. Pt shared stressor as being ongoing conflict with her and indicated that they continue to struggle with healthy communication. Appeared to benefit from the support and structure of group environment. Progress noted in improved insight and report of ability to more consistently apply internal coping skills. Pt recommended continued IOP tx to prevent decompensation, promote ongoing application of healthy coping skills, and further reduce mental health sx.] Narrative Note: []
--- NOTE | 2019-01-03 10:30 | BH.SGPN.GN ---
Behaviors/Verbalizations/Mental Status: []Client alert and oriented, neatly dressed and groomed. Eye contact fair-eyes red from crying. Motor activity appropriate. Speech within normal limits. Affect flat, tearful, mood dysthymic. Thoughts linear, logical, no signs of hallucinations or delusions. Client Response/Progress/Benefit: []Client entered session alert and oriented, but then became tearful and withdrawn. Client initially connected with the quote and shared it is important to be flexible and ?keep moving? when faced with barriers in life. Client shared there are barriers that happen to people ?and it isn?t your fault? and that there are barriers that people put in front of themselves. One example of a barrier was toxic relationships and ?stinkin thinkin.? After discussion of the quote, client became tearful and shut down. Client did not engage in the activity. Client appeared to benefit from connecting with others regarding barriers in life. However, based on client?s reaction, she appeared to be struggling to manage her emotions and it is unknown what triggered client. Client received supportive statements from peers and appeared less withdrawn at the end of session. Client to continue IOP to prevent decompensation, increase emotional regulation, and increase mood stability.
--- NOTE | 2019-01-06 09:03 | BH.SGPN.GN ---
Behaviors/Verbalizations/Mental Status: []Client alert and oriented, neatly dressed and groomed. Eye contact good. Motor activity appropriate. Speech off topic at times. Affect full, mood euthymic. Thoughts linear, logical, no signs of hallucinations or delusions. Reviewed client?s symptom tracker, no risk for suicidal ideation, plan, or intent as of 01/06/19. Client Response/Progress/Benefit: []Client responded well to session, positive and providing supportive statements.Client reports feeling hopeful today as she has a more positive mood today. Client's current mental health positives include getting to [employer] this weekend with her son and having better concentration. Client's current stressor is that she continues to struggle with sleep and waking up from dreams. Client appeared to benefit from reflecting on her positives and connecting with peers. Progress noted as client reports improved mood and her appearance is put together. However, client continues to struggle with consistent mood stability and implementation of healthy coping skills. Client to continue IOP to prevent decompensation and increase emotional regulation.
--- NOTE | 2019-01-06 10:23 | BH.SGPN.GN ---
Behaviors/Verbalizations/Mental Status: [Client alert and oriented, casually dressed and appropriate grooming. Eye contact good. Motor activity appropriate. Speech normal rate and tone at times off topic or rambling. Affect bright and congruent, mood anxious, euthymic. Thoughts linear, logical, no signs of hallucinations or delusions. ] Client Response/Progress/Benefit: [Client responded well to session, providing positive feedback and input throughout discussion. Client connected with the topic of cognitive distortions and discussed with the group ways in which thoughts can some time ?destroy? things or lie to you. Client went on to provide an example of someone in ?active addiction? may experience thoughts that are distorted during a craving or urge and explained that ?relapse starts at the first thought?. Client additionally helped the group identify the different types of cognitive distortions. Client did well to provide insight regarding her own use of distortions and noted connecting with the use of ?all or nothing thinking?. Client went on to provide an example of ?if I?m not going to win, then forget it?. Client appeared to benefit from increasing awareness of how cognitive distortions impact mental health and displayed progress in her ability to connect materials discussed with her own mental health. Client to continue treatment with a focus on identifying and challenging negative thinking patterns, increasing mood stability, and preventing decompensation. ] Narrative Note: []
--- NOTE | 2019-01-09 09:05 | BH.SGPN.GN ---
Behaviors/Verbalizations/Mental Status: []Client alert and oriented, neatly dressed and groomed-makeup on and hair done. Eye contact good. Motor activity restless. Speech tangential, inappropriate language, and rapid. Affect full, mood erratic, anxious . Thoughts linear, logical, no signs of hallucinations or delusions. Reviewed client?s symptom tracker, no risk for suicidal ideation, plan, or intent as of 01/09/19. Client Response/Progress/Benefit: []Client responded well to session, but mood appeared erratic throughout session. Client reports feeling ?spiteful, but great? today. Client shared she woke up a good mood, so she decided to do her makeup. Client reported her became upset and, per her report, jealous that client was wearing makeup when she is away from him. Client stated, ?I didn?t care I did it anyway, he can?t control me.? Client shared she is proud of herself for engaging in this self-care, but she is also stressed because of the argument she had with her . Behavioral Interventionist and the group helped client identify ways to resolve the conflict and engage in open communication. Client appeared to benefit from receiving supportive statements from peers and reviewing strategies. Progress continues to vary depending on the day/week as client has made some strides towards progress and currently feels positive. However, client has shown difficulty managing mood stability for extended periods of time and can benefit from ongoing IOP.
--- NOTE | 2019-01-09 10:17 | BH.SGPN.GN ---
Behaviors/Verbalizations/Mental Status: [Eye contact is good. Motor activity is appropriate. Appearance is casual and appropriate grooming - hair done and wearing make-up. Speech is Appropriate, at times rambling. Mood is euthymic and anxious. Affect is congruent, full. Thoughts are linear and logical. No evidence of psychosis.] Client Response/Progress/Benefit: [Pt responded well to session, able to remain mostly on topic and provide ideas throughout. Client appeared to connect with fellow participants reflections on the quote, providing a personal example in which she struggled to move forward because of focusing on the past. Pt participated in group discussion regarding mental health benefits of change. Identified three small personal changes to improve mental health as : increase ability to identify and reframe negative/distorted thoughts and cut back on use of cigarettes/caffeine by improving healthy coping application. Pt identified current barriers keeping from making those changes to be: justifying unhealthy coping behaviors, poor decision making and follow through, as well as lack of motivation. Pt appeared to benefit from gaining awareness of personal changes that would improve mental health and the barriers keeping client stuck. Progress noted in client level of insight regarding current barriers impacting mental health change and willingness to challenge herself to openly discuss with group. Continue IOP to further increase healthy coping skills and improve sx management and emotion regulation.] Narrative Note: []
--- NOTE | 2019-01-09 14:21 | BH.MDN ---
Multi-Disciplinary Note - Note 30-min Individual Time Started:: 11:25 Date: 01/09/19 Purpose of session/treatment goals addressed:: The purpose of this session was to learn and practice coping skills to manage current stressors, symptoms, and barriers. Another goal was to increase conflict resolution and communication skills to increase emotional regulation and interpersonal effectiveness skills. Other topics included self-empowerment and addiction. Eye Contact:: Good Motor Activity:: Restless Appearance:: Neat Speech:: Rambling, Rapid Mood:: Anxious Affect:: Congruent Thoughts:: Racing, No evidence of hallucinations/delusions noted Staff Interventions:: Therapist used active listening and open-ended questions to explore current stressors, symptoms, and barriers. Therapist gently challenged client's distorted thoughts and helped client reframe thoughts causing anger and anxiety. Therapist taught client effective conflict resolution and communication strategies to promote emotional regulation while dealing with relationship stressors. Therapist provided psychoeducation on addiction. Therapist provided gave client homework to practice self-care through writing. Client Response:: Client responded well to session, open to meeting with therapist. Client reported she is hurt and frustrated with her . After further processing, and elicitation from therapist, client was able to recognize some distorted thinking patterns. Client able to reframe negative thinking and challenge her perspective. Client receptive to learning effective communication and conflict resolution strategies. Client acknowledged that she has used some of the ineffective skills before and they don't returns clerk well. Client shared even though her upset her, she feels like he is trying to communicate better with her. Client able to recognize that if she can manage her own emotions it will help her better handle her relationships. Client shared she is going home to [place] this weekend to be with her daughter who is going through addiction issues. Client and therapist discussed how addiction impacts the brain and how client can continue to stay sober. Client agreeable to practicing coping skills before, during, and after her trip to prevent decompensation and maintain gains. Client shared she has not written in a while and she was open to writing a poem for self-care. Risks/Concerns:: Client denies any suicidal ideation, plan, or intent as of 01/09/19. Progress Toward Goals/Plan:: Client has demonstrated progress towards treatment goals as client reports overall improved mood, better emotional regulation, and generalization coping skills. Client shared she wore makeup today because I wanted my outside to match how I feel in the inside. Client reports her medication change is contributing to her improved mood, however, client acknowledges she cannot solely rely on medication forever. Client continues to struggle with interpersonal relationship conflict, managing anger, and challenging cognitive distortions. Client to continue IOP to prevent decompensation and improve mood stability. Time Stopped:: 11:55
--- NOTE | 2019-01-09 16:03 | BH.TPR ---
Treatment Plan Review Date of Admission:: 12/12/18 Date of Treatment Plan Review:: 01/09/19 Admitting Diagnoses:: RYAN F41.1, persistent depressive disorder, borderline personality disorder, cannabis use disorder Current Diagnoses:: RYAN F41.1, OCD, PTSD, cannabis use disorder, history of polysubstance abuse and dependence Patient's Response to Treatment:: Client has responded somewhat well to treatment as she reports benefits from the group setting and individual counseling. However, client struggles to achieve prolonged mood stability and continues to demonstrate mood dysregulation. This week client reports an improved mood, however, last week client reported high anxiety and ?flying off the handle.? Client?s attendance was variable during the first two weeks of treatment, but it is improving. During groups, client is mostly active and alert, although there are times when client withdraws and becomes tearful. In individual sessions client is receptive and can practice healthy coping skills. Client appears to have difficulty with utilizing healthy coping skills without external supports as evidenced by client?s phone calls into IOP when client feels high anxiety. Overall, client engages well with peers and staff. Client often offers supportive statements to peers, but there have been some issues with porous boundaries. Client reports medication compliance, but has reported side effects. Status of Current Problems and Symptoms: Client?s symptoms and progress continue to be variable based on the day/week. Client has shown strides towards treatment goals, and she is currently reporting an improved mood. However, for the past few weeks client reported feeling panic ?all day,? high anxiety, crying spells, and irritability. Client?s and client both called into IOP last week due to client?s mood instability. Client has learned coping skills, but she continues to struggle with applying them without external support. Client has also struggled with medication issues including client?s report of side effects and ineffectiveness. Additionally, client reports ongoing marital issues that exacerbate her symptoms. Problem #1 Problem Name:: Pt. will increase emotional regulation and reduce depressive symptoms. Status of Goals:: Objective- 1 not complete. Client?s DSM-5 symptoms for depression have increased since admission going from 03/12 to 06/12. Client reported her symptoms have increased due to ongoing martial conflict. Client has worked on increasing her social support and is going to [facility] more regularly. Objective 2- partially complete. Client has learned and can identify coping skills to improve emotional regulation such as thought challenging, journaling, deep breathing, and drawing. However, client struggles to consistently apply these skills, especially during moments of conflict. Team Recommendations:: Client encouraged to continue working on this treatment goal as she currently is scoring higher for depressive symptoms on the DSM-5. Client reports her increased symptoms are due to interpersonal relationship issues with her . Client was encouraged to reach out to healthy supports through tenriism and was provided resources in the community to increase social support. Client and therapist currently working on increasing healthy supports and practicing coping skills. Problem #2 Problem Name:: Pt. will decrease frequency, duration, and intensity of anxiety and stress Status of Goals:: Objective 1- partially complete. Client has created a crisis intervention plan and can identify her personal triggers. Client has also learned calming coping skills such as the 5-senses, deep breathing, and self-talk. However, client continues to struggle with utilizing these skills without external support which may be why her symptoms have not lessened. Objective 2-partially complete. Client?s DSM-5 symptom scores stayed the same from admission. However, client continues to report feeling panic ?all day? and difficulty regulating her symptoms without medication. Team Recommendations:: Client encouraged to continue working on this treatment goal as she continues to report high anxiety and difficulty regulating her emotions without external support and medication. Client and therapist currently working on recognizing early warning signs and practicing coping skills. Client was also encouraged to practice fair fighting rules with her as client often reports her mood and symptoms are impacted by their relationship.
--- NOTE | 2019-01-10 10:20 | BH.SGPN.GN ---
Behaviors/Verbalizations/Mental Status: []Client alert and oriented, neatly dressed and groomed. Eye contact fair. Motor activity appropriate. Speech within normal limits. Affect constricted, mood anxious. Thoughts linear, logical, no signs of hallucinations or delusions. Client Response/Progress/Benefit: []Client responded well to session, participating in discussion. Client engaged in discussion of stress and able to recognize that stress can be positive as it can keep a person motivated. However, if a person does not manage stress it can result in distress and ongoing issues. Client participated in identifying current stressors in her life. Client's current stressors include: feeling disconnected, hopelessness, managing emotions, finding new normal, and family. Client stated she is not currently in distress, but she recognized her warning signs for distress to be: crying, yelling, and uncontrollable worrying. Client stated she is current using deep breathing and stretching to manage stress. Client appeared to benefit from gaining awareness of her current stressors and learning about stress.
--- NOTE | 2019-01-10 11:15 | BH.SGPN.GN ---
Behaviors/Verbalizations/Mental Status: [] Eye contact is good. Motor activity is appropriate. Appearance is casual. Speech is Appropriate. Mood is anxious. Affect is congruent. Thoughts are linear and logical. No evidence of psychosis. Client Response/Progress/Benefit: [] Pt was an active participant in group activity and discussion. Pt worked with the group to brainstorm barriers to coping with stress which included; using comfortable but ineffective skills, feeling frozen or stuck in the emotion, poor communication of needs/concerns, negative thinking, and focusing on worst case scenario. Along with the group identified strategies which are helping in coping with stress which included; teamwork, being OK with failing, clear and specific communication of needs, wants, and concerns, patience, challenging negative assumptions, being mindful, and developing a plan. Attentive during psycho-education on the four A's of stress (Adapt, alter, avoid, and accept) which are stress management strategies. Benefited from identifying barriers to managing stress and stress management strategies. Will continue in IOP to stabilize anxiety, prevent decompensation, and improve daily functioning. Narrative Note: []
--- NOTE | 2019-01-10 13:52 | PCM.PN.BLA ---
Progress Note Chief Complaint: The patient is a 43-year old female who is an active participant in the intensive outpatient mental health treatment program at [facility]. She has a long history of depression, anxiety, borderline personality features, OCD, and PTSD. History of Present Illness/Interim History: The patient is considerably improved from when I last saw her. I am not 100% but I am a lot better. I had gotten an emergency call asking to increase her dose of Klonopin to twice daily. I had approved this, and we had called in an additional supply. She reports a significant improvement with the change in medications. Her OCD symptoms are in much better control. She is not washing her hands much less during the day. Her nightmares have improved. Her moodiness has improved, and she is not having emotional outbursts like before. She considers herself to be much more emotionally stable. She sometimes does not take a second Klonopin but she is reassured just knowing it is there if she needs it. Things are going well at home and her boyfriend has noticed a significant improvement. He is taking greater care of her appearance. She is going to [facility] regularly. Current Psychiatric Medications: Luvox 50 mg daily, gabapentin 600 mg 3 times daily, Seroquel 25 mg every morning and 100 mg nightly, olanzapine 5 mg nightly, Klonopin 0.5 mg twice daily as needed Review of Symptoms: Psychiatry: Improving depression, anxiety and emotionality. She is not suicidal. There is no psychosis. Cognitively intact. Constitutional: She is of average weight and her weight has been steady. Her energy level has increased. Mental Status Examination: The patient presents as a pleasant, cooperative woman who is neatly dressed and groomed. Her thoughts are logical and coherent. Her depression and emotionality have improved. She is not psychotic. She is not suicidal. She is cognitively intact. Diagnoses: [] Newton I: Depressive disorder unspecified, generalized anxiety disorder, OCD, PTSD, chronic adjustment disorder with anxiety, cannabis use disorder, history of polysubstance abuse and dependence Newton II: Borderline personality disorder Newton III: MS, chronic back pain, nicotine dependence Plan: I am increasing her Klonopin to 0.5 mg twice daily as needed. I am continuing her other medications at the current doses. Continue treatment in the intensive outpatient groups. We will see her again as needed.
--- NOTE | 2019-01-13 11:16 | BH.SGPN.GN ---
Behaviors/Verbalizations/Mental Status: [Client maintained good eye contact, casually and neatly dressed, motor activity restless, speech tangential often off topic or making loose associations, mood euthymic, anxious, distracted. affect congruent, thoughts linear, logical, no evidence of delusions or hallucinations.] Client Response/Progress/Benefit: [Client attentive, engaged in both discussion and growth mindset reflection activity. Client providing input throughout, though often struggling to make connections to topic discussed and providing off topic comments. Client worked with the group on identifying self-reflection questions and strategies to reframe fixed mindset thoughts, however indicated having difficulties in challenging fixed thoughts associated with trauma triggers. Client receptive of suggestions by group though indicated believing that nothing would be helpful in addressing these thoughts. Client had difficulties in using cognitive restructuring to replace fixed thoughts and was open to assistance in doing so, but continued to appear to experience difficulties in making connections. Client benefitted from discussing strategies to promote a growth mindset in daily life. Limited progress noted to to difficulty focusing and connecting with materials discussed. Continued IOP tx to prevent decompensation, promote use of self-care and thought challenge strategies, and continue to work on improving mental health stability.] Narrative Note: []
--- NOTE | 2019-01-14 14:59 | BH.MDN_ITS ---
Multi-Disciplinary Note - Note 45-min Individual Time Started:: 11:17 Date: 01/14/19 Purpose of session/treatment goals addressed:: The purpose of this session was to address current stressors, symptoms, and barriers. Another goal was to practice in the moment coping skills and work on increasing social supports. Other topics included medication, cognitive restructuring, and resources. Eye Contact:: Good Motor Activity:: Appropriate Appearance:: Casual Speech:: Tangential, Rambling Mood:: Anxious, Depressed Affect:: Labile Thoughts:: Racing, No evidence of hallucinations/delusions noted Staff Interventions:: Therapist used active listening and open-ended questions to explore client's current stressors, symptoms, and barriers. Therapist prompted client to use in the moment coping skills such as breathing and self- talk to manage anxiety. Therapist helped client process her interpersonal relationship issues and explored options with client. Therapist gently challenged cognitive distortions and assisted client in reframing negative thoughts reinforcing anxiety. Therapist and client discussed healthy supports and ways to increase client's support network. Therapist will help client schedule an appointment with outpatient counseling and psychiatry. Therapist gave client homework to practice coping skills. Client Response:: Client entered session alert and oriented, however, she quickly became tearful. Client shared she feels depressed and anxious right now due to issues at home. Client reported she does not know what to do in her relationship with her it's getting to the point where I want to leave. Client shared she is conflicted for many reasons, but the main reason is lack of support and her son. Client receptive to increasing her social supports as client recognizes she could benefit from reaching out to people who she trusts. Client able to identify some potential support such as her friend, her islam, and her sister. Client receptive to getting connected with outpatient counseling and asked therapist to schedule an appointment. Throughout session, client was tearful and displaying anxiety symptoms. Client receptive to practicing coping skills and was able to calm herself down. Client acknowledged using cognitive distortions and therapist helped client reframe negative thinking reinforcing anxiety. Client willing to practice coping skills for homework and agreeable with plan to increase client's support network. Risks/Concerns:: Client reports increased depression, but denies any suicidal ideations, plan, or intent. Client shared I can see how people get to that point, but I don't want to . Client identifies her son and filiberto as reasons to live. Progress Toward Goals/Plan:: Client's progress continues to be variable as she has made some strides in utilizing coping skills and has seen improvements in mood due to medication management. Client has also been trying to reduce her marijuana use and has been taking her medication as prescribed. However, client currently reports decompensation in symptoms due to ongoing interpersonal relationship issues with her . Client's mood today was erratic, and she was tearful throughout session. Client to continue IOP to prevent further decompensation, increase social supports, and continue medication management. Therapist to follow up with treatment team for continuity of care and medication concerns. Time Stopped:: 12:00
--- NOTE | 2019-01-14 15:12 | BH.COMM ---
Communication Note - Communication with Client Communication Note: Per client's request, therapist called [facility] to set up an outpatient counseling appointment for client. Client's appointment is 01/22/19.
--- NOTE | 2019-01-15 10:15 | BH.SGPN.GN ---
Behaviors/Verbalizations/Mental Status: []Client alert and oriented, casually dressed and groomed. Eye contact fair. Motor activity appropriate. Speech tangential. Affect labile-laughing and smiling and then flat affect, mood erratic. Thoughts linear, logical, no signs of hallucinations or delusions. Client Response/Progress/Benefit: []Client responded mostly well to session, active at the beginning but then became withdrawn near the end of session. Client further processed her conflict resolution style and stated she would like to become more collaborative. Client stated, ?I want to get my voice heard in the right way.? Client was encouraged to practice being collaborative during the active. Client struggled at times with listening to other?s perspectives, but overall, she was able to compromise. Client helped the group identify things that positively and negatively impact conflict resolution. Client agreed with group that yelling and not listening both negatively impact conflict resolution. Client helped the group identify strategies to better manage conflict such as managing emotions, communicating calmly, and making the relationship a priority. Client appeared to benefit from learning conflict resolution strategies. Progress continues to be variable as client struggles with ongoing interpersonal relationship issues and regulating her emotions.
--- NOTE | 2019-01-15 10:15 | BH.SGPN.GN ---
Behaviors/Verbalizations/Mental Status: [] Eye contact is good. Motor activity is appropriate. Appearance is neat. Speech is Appropriate. Mood is anxious. Affect is congruent. Thoughts are linear and logical. No evidence of psychosis. Client Response/Progress/Benefit: [] Pt was an active participant in group discussion and activity. Worked together with the group to define conflict which they reported was; two opposing forces, wanting two different outcomes, two different perspectives on same situation, misunderstanding, internal struggles with decisions or emotions, feeling torn, and balancing. Described difference between external conflict and internal conflict. Discussed the benefits of conflict in progressing in relationships and mental health. Pt worked with group to identify barriers to over conflict which included; strong belief in one's perspective or view, miscommunication, one's emotional mood, fear, ramifications, consequences, and negative distortions. Attentive during psycho-education on different types of conflict styles. Pt reports that her conflict style is competing and this impacts her relationships as she shuts downs other's thoughts and perspectives. Benefited as she was able to identify and define conflict as well as increase awareness of how conflict style impacts her mental health. Will continue in IOP to stabilize mood and prevent decompensation. Narrative Note: []
--- NOTE | 2019-01-15 11:01 | BH.NOTE ---
BH: Inpatient Note - Notes Behavioral Health Inpatient Note: Per telephone order from Dr. Doan, the following prescriptions were called into [facility] pharmacy in [place], [place] ([phone]) for client: Luvox 50mg PO daily #30, NO refills Zyprexa 5mg PO QHS #30, NO refills Seroquel 25mg PO QAM #30, NO refills Seroquel 100mg PO QHS #30, NO refills Rosenda Blanco, MSN, RN
--- NOTE | 2019-01-15 15:13 | BH.COMM_ITS ---
Communication Note - Communication with Client Communication Note: Per client's request, therapist called [facility] to set up an outpatient counseling appointment for client. Client's appointment is 01/22/19.
--- NOTE | 2019-01-17 09:10 | BH.SGPN.GN ---
Behaviors/Verbalizations/Mental Status: [] Eye contact is good. Motor activity is appropriate. Appearance is casual. Speech is Appropriate. Mood is anxious/depressed. Affect is congruent. Thoughts are linear and logical. No evidence of psychosis. Reviewed daily check in sheet and no reports of suicidal ideations or intent Client Response/Progress/Benefit: [ Pt participated in group discussion. Pt was tearful for her entire check-in. Reports communication issues with her spouse. Feels unappreciated and overwhelmed. Discussed anxiety attack while in [employer] Reports being unsure of making any decisions and being angry. Group provided feedback and helped reframe negative thoughts. Pt actually completed her shopping at [employer] and her anxiety was situational and momentary. He anxiety did not keep her from completing goals and she managed it with coping skills. Pt was able to acknowledge this. Benefited from group support, encouragement, and feedback. Limited progress noted. Will continue to IOP to stabilize mood, prevent decompensation, and increase daily functioning. Narrative Note: []
--- NOTE | 2019-01-17 10:18 | BH.SGPN.GN ---
Behaviors/Verbalizations/Mental Status: []Client alert and oriented, neatly dressed and groomed. Eye contact fair. Motor activity appropriate. Speech within normal limits. Affect labile-tearful during discussion and then laughing during activity, mood erratic. Thoughts linear, logical, no signs of hallucinations or delusions. Client Response/Progress/Benefit: []Client responded somewhat well to session, engaged during activity but tearful during discussion. Client declined to participate in discussion and was tearful throughout. However, client non-verbally agreed with peers? examples of positive and negative forces. Client?s mood improved during the activity where she was smiling and an active participant. Client used assertive communication and internal coping skills which helped the group be successful in balancing different forces. Client appeared to benefit from practicing in the moment coping skills to improve her mood and connect with peers. Progress variable as client continues to struggle with mood dysregulation. Client to continue IOP to prevent decompensation and increase mood stability.
--- NOTE | 2019-01-17 11:45 | BH.NOTE ---
BH: Inpatient Note - Notes Behavioral Health Inpatient Note: Client notes some ongoing difficulty staying awake in the evenings; she and her have noticed that she sometimes falls asleep while eating at the table, and is noticeably groggy in the hours between dinner and her bedtime. Client notes that she is usually in bed from 8-10pm and wakes between 3-4am, unable to fall back asleep. The client is concerned, and she says that her is too, that she is on too many medications. Reviewed current medications and timing of each with client. Discussed client's current presentation and concerns with Dr. Doan. Dr. Doan would like the client to decrease the bedtime dose of Seroquel to 50mg, and client is to only be taking 600mg of gabapentin at bedtime (client thought she is to take 900mg). Discussed these changes with client and Patricia. Client verbalizes changes. RX list updated in paper chart and EMR. No further needs voiced. Rosenda Blanco, MSN, RN
--- NOTE | 2019-01-17 15:34 | BH.MDN ---
Multi-Disciplinary Note - Note 45-min Individual Time Started:: 11:20 Date: 01/17/19 Purpose of session/treatment goals addressed:: The purpose of this session was to address current symptoms, stressors, and medication concerns. Another goal was to practice coping skills in the moment to reduce anxiety and depressive symptoms. Other topics included decisional balance and social support. Eye Contact:: Good Motor Activity:: Appropriate Appearance:: Disheveled Speech:: Rambling Mood:: Anxious, Depressed Affect:: Labile Thoughts:: Other - thought blocking, No evidence of hallucinations/delusions noted Staff Interventions:: Therapist used open-ended questions and active to listening to explore client's current stressors, symptoms, and medication concerns. Therapist and IOP nurse discussed and clarified dosage and changes to client's medication. Therapist helped client practice coping skills to reduce anxiety and negative thinking. Therapist helped client explore potential social supports and assisted client in setting a goal for the weekend to contact two social supports. Therapist gently challenged client's ambivalence about her relationship using motivational interviewing strategies and helped client see the costs and benefits of behaviors. Client Response:: Client entered session tearful, but she was open to meeting with therapist. Client shared she continues to feel depressed and overwhelmed by emotions due to issues at home. Client attempted to play a message of she and her arguing. The message made client even more tearful, and therapist encouraged client to stop it as it was further exacerbating rumination and depression. Client shared I'm just going to tell him you want a divorce, fine. However, after further processing with therapist, client recognized that the costs of doing this today outweigh the pros. Client shared I don't have supports or anything. Client and therapist identified possible social supports. Client stated she can talk to people at her [employer] and her sister for support this weekend. Throughout session client was using numerous distorted thoughts, but she was able to challenge and reframe them with the help of therapist. Client reported she has been struggling with sleep and she has been falling asleep while I'm eating. IOP nurse came into session and discussed medication. Client encouraged to use coping skills and reach out to supports over the weekend. Client was provided resources for [employer] to increase social support. Risks/Concerns:: Client reports increased depressive symptoms associated with interpersonal relationship issues at home. Client continues to deny suicidal ideation, plan, and intent. Client stated, I would never kill myself. Progress Toward Goals/Plan:: Client's progress continues to be variable as she has made some strides in improving her mental health symptoms and using healthy coping skills, but this week client reports decompensation in symptoms. Client reports belief her decompensation is due to ongoing interpersonal relationship issues with her , ?he makes me depressed.? Client stated she is beginning to get an ?I don?t care to be with him? attitude with her . Client's mood today was erratic, and she was tearful throughout session and part of group. Client also continues to report issues with sleep and medication. Client continues to struggle with increasing social support and using internal coping skills. Client to continue IOP to prevent further decompensation, increase social supports, and continue medication management. Therapist to follow up with treatment team for continuity of care and medication concerns. Time Stopped:: 12:10
--- NOTE | 2019-01-17 15:40 | BH.COMM ---
Communication Note - Communication with Client Communication Note: Per client's request, therapist called [facility] in [place] and scheduled an intake appointment for ongoing psychiatry and medication management. Client's appointment is next week. Therapist to follow up with client.
--- NOTE | 2019-01-20 09:05 | BH.SGPN.GN ---
Behaviors/Verbalizations/Mental Status: [] Eye contact is good. Motor activity is appropriate. Appearance is casual. Speech is Appropriate. Mood is irritable. Affect is congruent. Thoughts are linear and logical. No evidence of psychosis. Reviewed daily check in sheet and no reports of suicidal ideations or intent. Client Response/Progress/Benefit: [] Pt participated in group discussion. Emotion for today is reported to be happy and calm however check-in she appeared irritable. Reports that she was assertive with her over the weekend regarding concerns that she had. She was able to verbalize her concerns and while she reports that their was no resolution she was proud in her ability to communicate her needs. States that the ball is in his court. Denies any overwhelming anxiety or depression. Mood was stable this weekend. Progress noted per pt report. Will continue in IOP to prevent decompensation and improve daily functioning. Narrative Note: []
--- NOTE | 2019-01-20 11:20 | BH.SGPN.GN ---
Behaviors/Verbalizations/Mental Status: []Client alert and oriented, neatly dressed and groomed. Eye contact good. Motor activity appropriate. Speech inappropriate language and off topic at times. Affect full, mood euthymic. Thoughts linear, logical, no signs of hallucinations or delusions. Client Response/Progress/Benefit: []Client responded well to session, off topic and inappropriate at times, but contributing. Client participated in the activity and helped the group process challenges associated with making change. Client shared miscommunication and lack of awareness were barriers during the activity. Client reported teamwork and communication helped the group adapt to change. Client identified a change she would like to make to improve her mental health. Client?s goal was to improve her conflict resolution. Client stated she plans to do this by ?arguing less and communicating more.? Client reported she can try to sit down with her and talk more often. Client appeared to benefit from overcoming challenges associated with making change and from identifying a change that would improve her mental health. Progress continues to be variable as client recently had a regression in symptoms last week, but she reports improved mood today. Client to continue IOP to increase mood stability and prevent decompensation.
--- NOTE | 2019-01-22 09:10 | BH.SGPN.GN ---
Behaviors/Verbalizations/Mental Status: [] Eye contact is good. Motor activity is appropriate. Appearance is casual. Speech is Appropriate. Mood is anxious. Affect is congruent. Thoughts are linear and logical. No evidence of psychosis. Reviewed daily check in sheet and no reports of suicidal ideations or intent. Client Response/Progress/Benefit: [] Pt was a active participant in group discussion. Emotion for today is hopeful. Shared with the group that she had her initial appointment with new psychiatrist as she is beginning to prepare for discharge from IOP. Reports that she appointment went well. Overall her mood has been stable and positive, however much of her mood is dependent on her and Thier relationship. Benefited from group feedback and encouragement. Progress noted. Will continue in IOP to maintain gains, prevent decompensation, and stabilize anxiety. Narrative Note: []
--- NOTE | 2019-01-22 11:20 | BH.SGPN.GN ---
Behaviors/Verbalizations/Mental Status: []Pt alert and oriented, eye contact good, casually and neatly dressed, motor activity appropriate, speech normal rate and tone, mood anxious, congruent affect, thoughts linear and intact, no evidence of delusions or hallucinations. Client Response/Progress/Benefit: []Client semi-active participant AEB client contributing at times to discussion, however listened attentively to others. Client worked with the group to make connections between barriers faced in the challenge activity and strategies for managing these barriers with utilizing social supports in daily life. Client contributed to discussion about the different types of support and benefits different types of support can provide. Client worked with the group to identify strategies for improving development of new supports and better utilization of current supports. Client identified attending [employer] as a type of spiritual support that she finds to be very helpful. Client identified she would like to improve her relationship with her by improving communication. Client seemed to benefit from identifying a type of support she would like to improve upon and creating actionable steps to promote follow-through. Client to continue IOP level of care to prevent decompensation, increase use of healthy coping and anxiety management skills. Narrative Note: []
--- NOTE | 2019-01-22 11:31 | BH.MDN_ITS ---
Multi-Disciplinary Note - Note 60-min Individual Time Started:: 10:15 Date: 01/22/19 Purpose of session/treatment goals addressed:: The purpose of this session was to address current symptoms, stressors, and cognitive distortions. Other goals were to discuss maintaining progress, discharge, and healthy supports. Other topics included: boundaries and intrusive thoughts. Eye Contact:: Good Motor Activity:: Appropriate Appearance:: Neat Speech:: Appropriate Mood:: Euthymic, Anxious Affect:: Congruent, Other - tearful, but appropriate to content being discussed. Thoughts:: Circular, No evidence of hallucinations/delusions noted Staff Interventions:: Therapist used active listening and open-ended questions to explore current symptoms, stressors, and recent psychiatrist visit. Therapist brought awareness to and gently challenged client?s use of distorted thinking patterns. Therapist helped client reframe negative thoughts and look at different perspectives. Therapist normalized client?s recent intrusive thoughts and worked through these with client. Therapist and client reviewed healthy boundaries and setup up social support for aftercare. Therapist discussed discharge and progress. Per client?s request, therapist to follow up with [facility] to help client get involved in WRAP. Client Response:: Client responded well to session, open to meeting with therapist. Client stated she feels a lot better this week compared to last week. Client shared she went to her appointment at [facility] and they changed her medications. Client stated feeling more alert and less fatigued since changes. Client reported improved emotional regulation this week and improved outlook on progress. Client unable to identify what changed since last week, but she shared going to latter day this Sunday was helpful. Client reported being hopeful about seeing her outpatient therapist today and the recent medication changes. Client shared despite improved mood, she continues to struggle with her relationships, negative thinking, and managing anger. Client discussed a recent event with her and became tearful. Client was using numerous distorted thinking patterns that were reinforcing negative maintenance cycles. With help from therapist, client was able to recognize distorted thoughts and look at the situation in a different perspective. Client acknowledges more information is needed at this time to make a major decision and that she can benefit from increasing her social support. Client and therapist reviewed healthy supports and boundaries. Client receptive to attending [facility] and WRAP through [facility]. Client shared some intrusive thoughts she has been having that are upsetting to her. After further discussion and psychoeducation, client reported feeling better once realizing how common intrusive can be. Risks/Concerns:: Client denies any suicidal ideations, plan, or intent as of 01/22/19. Progress Toward Goals/Plan:: Client's progress continues to be based on a daily/weekly basis. Last week client reported increased depressive symptoms and frequent crying spells. This week, client reports improved mood and functioning. Client's appearance and affect have improved from last week as well. Client reports increased ability to manage emotions this week and a more positive outlook on her progress. Client recognizes she can benefit from increased consistency of mood stability. Client continues to report relationship issues with her and feelings of ambivalence. Client reported her appointment went well at [facility] and she has an appointment with an outpatient counselor today. Client to continue IOP to promote mood stability and emotional regulation skills and discharge next week. Time Stopped:: 11:08
--- NOTE | 2019-01-22 15:27 | BH.COMM ---
Communication Note - Communication with Client Communication Note: Per client's request, therapist called and registered client for the WRAP (wellness recovery action plan) class through [facility]. Client shared she wants to attend this course as part of her aftercare and maintenance plan.
--- NOTE | 2019-01-27 09:02 | BH.SGPN.GN ---
Behaviors/Verbalizations/Mental Status: []Client alert and oriented, casually dressed and groomed. Eye contact good. Motor activity appropriate. Speech within normal limits. Affect congruent-tearful, mood dysthymic. Thoughts linear, logical, no signs of hallucinations or delusions. Reviewed client?s symptom tracker, no risk for suicidal ideation, plan, or intent as of 01/27/19. Client Response/Progress/Benefit: []client entered session alert and oriented, tearful throughout. Client reports feeling overwhelmed today because she left her this weekend. Client shared she has been thinking of leaving for a few weeks and a situation happened this weekend that made her make the decision. Client began going into detail and was asked to continue processing in individual session as to not trigger peers. Client shared she reached out to her episcopal for support and was able to identify positives to leaving her . Client reported she went to visit her daughter this weekend which was a mental health win for client. Client received supportive comments from peers which she appeared to benefit from. Progress continues to be variable based on the day/week as client?s mood directly correlates with external situations. Client to continue IOP to prevent decompensation and increase emotional regulation skills.
--- NOTE | 2019-01-27 10:30 | BH.COMM ---
Communication Note - Communication with Client Communication Note: Client's called into IOP to express concerns about client. Client's left a message for this therapist. In the message, client's shared he and client and he was concerned for client's safety. Therapist did not call client's back as client has asked IOP staff not to contact her . Client did not present with any risk factors and denied any suicidal or homicidal ideation, plan, and intent.
--- NOTE | 2019-01-27 11:16 | BH.SGPN.GN ---
Behaviors/Verbalizations/Mental Status: [Eye contact is good. Motor activity is appropriate. Appearance is casual. Speech is Appropriate. Mood is anxious, dysthymic. Affect is congruent with mood. Thoughts are linear and logical. No evidence of psychosis.] Client Response/Progress/Benefit: [Pt participated in group activity and discussion, providing input and reflection to group. Pt worked with the group to complete the challenge activity and identify barriers encountered that may also impact managing stress in daily life. Identified barriers as focusing on trying to do the same thing over and over again, difficulty managing frustration, and negative self-talk. Pt worked with the group to identify strategies for coping with stress which included; singing and healthy distraction. Benefited from identifying personal barriers to managing stress, impact of stress on mental health, and stress management strategies. Pt indicated wanting to work on current stressor of medication noncompliance by taking them as prescribed and putting them somewhere she will remember. Pt to continue in IOP to prevent decompensation, improve management of depression and increase healthy skill application.] Narrative Note: []
--- NOTE | 2019-01-27 15:04 | BH.MDN ---
Multi-Disciplinary Note - Note 45-min Individual Time Started:: 10:35 Date: 01/27/19 Purpose of session/treatment goals addressed:: The purpose of this session was to address and process recent stressor. Another goal was to identify social supports and plan of action to promote client's mental wellbeing. Eye Contact:: Good Motor Activity:: Restless Appearance:: Casual Speech:: Tangential, Rapid Mood:: Dysthymic Affect:: Congruent - tearful Thoughts:: Other - thought blocking-reporting losing my train of thought several times Staff Interventions:: Therapist used active listening and open-ended questions to gather information on client's current situation. Therapist explored client's social supports, safety, and made sure client has resources. Therapist asked client about misuse of prescription medication as client reports being low. Therapist helped client process her emotions and provided emotional support. Therapist provided client with resources and helped client develop a plan for today. Therapist to follow up with client and client's outpatient therapist. Client Response:: Client responded well to session, open to meeting with therapist, but tearful throughout. Client reported she and her over the weekend. Client stated she has been feeling conflicted and unhappy for several weeks and an event happened this weekend that made client realize I couldn't take it anymore. Client reached out to her restorationism for support and also has been in contact with an old friend who is helping her as well. Client reported she is sad to be leaving her 's son, who client has been a mother to for four years. Client shared I'm heartbroken, but I know I needed to go. Client reports belief that although she is sad it will get better and she feels like she is managing well. Client stated she can turn to her restorationism and her old friend for support. Client declined to go to [facility] at this time as she feels like her will look for her there. Client receptive to going to [facility] in the future. Client reported she would not like [facility] staff to talk to her or to tell him where client is. Client selected a new emergency contact. Risks/Concerns:: Client denies any suicidal ideations, plan, or intent as of 01/27/19. Client stated despite recent stressors she reports belief she is managing well and I'm okay. Client future oriented as shown by her report that things will get better. Deterrents of filiberto and feels able to maintain safety. Client also denies misuse of her prescription medication. Progress Toward Goals/Plan:: Client continues to have external stressors that impact her mood and mental health symptoms. However, despite ongoing stressors, client reports belief she is managing well. Client has shown progress with reaching out to her restorationism and an old friend for support during this difficult time. Client has also shown progress with setting boundaries and leaving, per client's report, a toxic relationship. Client continues to struggle with emotional regulation, anxiety, using healthy coping skills, and memory issues. Client was to discharge from [facility] this week, however, due to recent stressor, [facility] staff will monitor and discuss plan of care. Therapist to follow up with client's outpatient therapist and [facility] treatment team. Time Stopped:: 11:10
--- NOTE | 2019-01-27 15:07 | BH.MDN_ITS ---
Multi-Disciplinary Note - Note 45-min Individual Time Started:: 10:35 Date: 01/27/19 Purpose of session/treatment goals addressed:: The purpose of this session was to address and process recent stressor. Another goal was to identify social supports and plan of action to promote client's mental wellbeing. Eye Contact:: Good Motor Activity:: Restless Appearance:: Casual Speech:: Tangential, Rapid Mood:: Dysthymic Affect:: Congruent - tearful Thoughts:: Other - thought blocking-reporting losing my train of thought several times Staff Interventions:: Therapist used active listening and open-ended questions to gather information on client's current situation. Therapist explored client's social supports, safety, and made sure client has resources. Therapist asked client about misuse of prescription medication as client reports being low. Therapist helped client process her emotions and provided emotional support. Therapist provided client with resources and helped client develop a plan for today. Therapist to follow up with client and client's outpatient therapist. Client Response:: Client responded well to session, open to meeting with therapist, but tearful throughout. Client reported she and her over the weekend. Client stated she has been feeling conflicted and unhappy for several weeks and an event happened this weekend that made client realize I couldn't take it anymore. Client reached out to her christian for support and also has been in contact with an old friend who is helping her as well. Client reported she is sad to be leaving her 's son, who client has been a mother to for four years. Client shared I'm heartbroken, but I know I needed to go. Client reports belief that although she is sad it will get better and she feels like she is managing well. Client stated she can turn to her christian and her old friend for support. Client declined to go to [facility] at this time as she feels like her will look for her there. Client receptive to going to [facility] in the future. Client reported she would not like [facility] staff to talk to her or to tell him where client is. Client selected a new emergency contact. Risks/Concerns:: Client denies any suicidal ideations, plan, or intent as of 01/27/19. Client stated despite recent stressors she reports belief she is managing well and I'm okay. Client future oriented as shown by her report that things will get better. Deterrents of filiberto and feels able to maintain safety. Client also denies misuse of her prescription medication. Progress Toward Goals/Plan:: Client continues to have external stressors that impact her mood and mental health symptoms. However, despite ongoing stressors, client reports belief she is managing well. Client has shown progress with reaching out to her christian and an old friend for support during this difficult time. Client has also shown progress with setting boundaries and leaving, per client's report, a toxic relationship. Client continues to struggle with emotional regulation, anxiety, using healthy coping skills, and memory issues. Client was to discharge from [facility] this week, however, due to recent stressor, [facility] staff will monitor and discuss plan of care. Therapist to follow up with client's outpatient therapist and [facility] treatment team. Time Stopped:: 11:10
--- NOTE | 2019-01-28 16:02 | BH.COMM_ITS ---
Communication Note - Communication with Client Communication Note: This therapist spoke with client's outpatient counselor at [facility] for continuity of care purposes. Conversation included updates, current symptoms, and establishing wrap-around care.
--- NOTE | 2019-01-28 16:03 | BH.MTP_ITS ---
Treatment Plan Review Date of Admission:: 12/12/18 Date of Treatment Plan Review:: 01/09/19 Admitting Diagnoses:: RYAN F41.1, persistent depressive disorder, borderline personality disorder, cannabis use disorder Current Diagnoses:: RYAN F41.1, OCD, PTSD, cannabis use disorder, history of polysubstance abuse and dependence Patient's Response to Treatment:: Client has responded somewhat well to treatment as she reports benefits from the group setting and individual counseling. However, client struggles to achieve prolonged mood stability and continues to demonstrate mood dysregulation. This week client reports an improved mood, however, last week client reported high anxiety and ?flying off the handle.? Client?s attendance was variable during the first two weeks of treatment, but it is improving. During groups, client is mostly active and alert, although there are times when client withdraws and becomes tearful. In individual sessions client is receptive and can practice healthy coping skills. Client appears to have difficulty with utilizing healthy coping skills without external supports as evidenced by client?s phone calls into IOP when client feels high anxiety. Overall, client engages well with peers and staff. Client often offers supportive statements to peers, but there have been some issues with porous boundaries. Client reports medication compliance, but has reported side effects. Status of Current Problems and Symptoms: Client?s symptoms and progress continue to be variable based on the day/week. Client has shown strides towards treatment goals, and she is currently reporting an improved mood. However, for the past few weeks client reported feeling panic ?all day,? high anxiety, crying spells, and irritability. Client?s and client both called into IOP last week due to client?s mood instability. Client has learned coping skills, but she continues to struggle with applying them without external support. Client has also struggled with medication issues including client?s report of side effects and ineffectiveness. Additionally, client reports ongoing marital issues that exacerbate her symptoms. Problem #1 Problem Name:: Pt. will increase emotional regulation and reduce depressive symptoms. Status of Goals:: Objective- 1 not complete. Client?s DSM-5 symptoms for depression have increased since admission going from 03/12 to 06/12. Client reported her symptoms have increased due to ongoing martial conflict. Client has worked on increasing her social support and is going to [employer] more regularly. Objective 2- partially complete. Client has learned and can identify coping skills to improve emotional regulation such as thought challenging, journaling, deep breathing, and drawing. However, client struggles to consistently apply these skills, especially during moments of conflict. Team Recommendations:: Client encouraged to continue working on this treatment goal as she currently is scoring higher for depressive symptoms on the DSM-5. Client reports her increased symptoms are due to interpersonal relationship issues with her . Client was encouraged to reach out to healthy supports through [employer] and was provided resources in the community to increase social support. Client and therapist currently working on increasing healthy supports and practicing coping skills. Problem #2 Problem Name:: Pt. will decrease frequency, duration, and intensity of anxiety and stress Status of Goals:: Objective 1- partially complete. Client has created a crisis intervention plan and can identify her personal triggers. Client has also learned calming coping skills such as the 5-senses, deep breathing, and self- talk. However, client continues to struggle with utilizing these skills without external support which may be why her symptoms have not lessened. Objective 2- partially complete. Client?s DSM-5 symptom scores stayed the same from admission. However, client continues to report feeling panic ?all day? and difficulty regulating her symptoms without medication. Team Recommendations:: Client encouraged to continue working on this treatment goal as she continues to report high anxiety and difficulty regulating her emotions without external support and medication. Client and therapist currently working on recognizing early warning signs and practicing coping skills. Client was also encouraged to practice fair fighting rules with her as client often reports her mood and symptoms are impacted by their relationship.
--- NOTE | 2019-01-29 14:20 | BH.COMM ---
Communication Note - Communication with Client Communication Note: Client called into IOP tearful and asked to speak with this therapist. Client stated she has been crying all morning regarding her current situation and that she feels overwhelmed. Client was scheduled to attend [facility] this morning and did not show. Client denies any risk of harming herself or others. Client able to calm down during discussion with therapist and identify steps she can do today to manage her emotions. Client reported concerns about running out of her medication. Therapist to follow up with treatment team. Client to attend group on Sunday01/31/19.
--- NOTE | 2019-01-29 14:47 | BH.COMM_ITS ---
Communication Note - Communication with Client Communication Note: Client called into IOP tearful and asked to speak with this therapist. Client stated she has been crying all morning regarding her current situation and that she feels overwhelmed. Client was scheduled to attend [facility] this morning and did not show. Client denies any risk of harming herself or others. Client able to calm down during discussion with therapist and identify steps she can do today to manage her emotions. Client reported concerns about running out of her medication. Therapist to follow up with treatment team. Client to attend group on Sunday01/31/19.
--- NOTE | 2019-01-31 09:02 | BH.SGPN.GN ---
Behaviors/Verbalizations/Mental Status: [Eye contact is good. Motor activity is appropriate. Appearance is casual. Speech is Appropriate at times struggling to remain on topic or interrupting others. Mood is euthymic, positive. Affect is congruent. Thoughts intact, linear and logical. No evidence of psychosis. Reviewed daily check in sheet with no reports of suicidal ideations or intent] Client Response/Progress/Benefit: [Client attentive and engaged in group discussion, providing input throughout. Emotion for today is optimistic as she noted having had a good conversation with her about improving their marriage. Shared with the group mental health positives of discussing the importance of having her go to [facility] with her with him as he indicated better understanding her perspective afterward. Additional positive as having a family session planned for Sunday. Client continues to report her relationship is labile and appears to lack insight regarding the impacts this has on her mental health. Described current stressor as anxiety about ensuring that the weekend will be positive and indicated that effective communication will be crucial in ensuring this. Progress noted in her ability to maintain attention and identify strategies for improving communication. Recommended continued IOP tx to maintain stability, decrease anxiety and better manage emotions, as well as prevent decompensation.] Narrative Note: []
== END 2019-02-02 23:59 ==
LOC: BHIOP 09:00
PROVIDERS: Family Provider Family Medicine; PCP Family Medicine; Referring Provider Psychiatry & Neurology Psychiatry; Visit Provider Psychiatry & Neurology Psychiatry
DX: F32.9 Major depressive disorder, single episode, unspecified (principal); F41.1 Generalized anxiety disorder; F42.9 Obsessive-compulsive disorder, unspecified; F43.12 Post-traumatic stress disorder, chronic; F43.22 Adjustment disorder with anxiety; F12.10 Cannabis abuse, uncomplicated; F19.11 Other psychoactive substance abuse, in remission; F60.3 Borderline personality disorder; G89.29 Other chronic pain; M54.9 Dorsalgia, unspecified; G35 Multiple sclerosis; F17.210 Nicotine dependence, cigarettes, uncomplicated; Z79.899 Other long term (current) drug therapy
CPT/HCPCS: H0035; 90832; 90834; 90837; 90853

== ENCOUNTER → 2019-01-13 09:51 | Outpatient (CLI) | payer OTHER, SELFPAY ==
[2018-12-06 16:41] VITALS: BMI 20.1
--- NOTE | 2019-01-13 09:55 | BI_ITS ---
MAMMOGRAPHY - BILATERAL DIAGNOSTIC REASON FOR EXAM: Female, 43 years old. Bilateral breast discharge worse on the left side. PERTINENT HISTORY: Non-contributory. TECHNIQUE: Digital bilateral breast amina (3D mammographic acquisition) in the CC and MLO projections. 2-D mediolateral oblique (MLO) and craniocaudad (CC) views of both breasts were obtained. CAD: Full Field Digital Mammography with Computer Added Detection was performed. COMPARISON: Comparison is made with prior examination dated August 21, 2013. FINDINGS: Breast Composition: The breasts are heterogeneously dense, which may obscure small masses. There are no dominant masses or suspicious calcifications. No other significant abnormalities are identified. There has been no significant change since the prior study. BI/DIAG MAMM W/CAD, BILAT IMPRESSION: Stable bilateral diagnostic mammogram. One year follow-up recommended. (A) ASSESSMENT CATEGORY: BIRADS Category 1: Negative. A letter regarding these results will be sent to the patient by the facility within 30 days. Approximately 10% of breast cancers are not detected by mammography. A normal mammogram should not delay biopsy of a clinically suspicious abnormality. Electronically Signed: Hardy Lobo, at 12:20 EDT , Service support ,
--- NOTE | 2019-01-13 10:23 | US_ITS ---
STUDY: ULTRASOUND BREAST - RIGHT REASON FOR EXAM: Female, 43 years old. Bilateral breast discharge. TECHNIQUE: Axial and longitudinal images of the RIGHT breast were performed with a high resolution ultrasound transducer. COMPARISON: Comparison is made with prior mammogram done earlier in the day. FINDINGS: RIGHT Breast: There is a 5 mm x 5 mm x 4 mm focally dilated duct in the retroareolar region of the breast. IMPRESSION: Focally dilated retroareolar duct. ASSESSMENT CATEGORY: BIRADS Category 2: Benign. A letter regarding these results will be sent to the patient by the facility within 30 days. Electronically Signed: Hardy Lobo, at 12:36 EDT , Service support , STUDY: ULTRASOUND BREAST - LEFT REASON FOR EXAM: Female, 43 years old. Bilateral nipple discharge. TECHNIQUE: Axial and longitudinal images of the LEFT breast were performed with a high resolution ultrasound transducer. COMPARISON: Comparison is made with prior mammogram done earlier in the day. FINDINGS: LEFT Breast: There is a 5 mm x 5 mm x 3 mm cyst in the retroareolar region of the breast. US/Breast Limited Unilateral IMPRESSION: 5 mm x 5 mm x 3 mm cyst in the retroareolar region of the breast. ASSESSMENT CATEGORY: BIRADS Category 2: Benign. A letter regarding these results will be sent to the patient by the facility within 30 days. Electronically Signed: Hardy Lobo, at 12:38 EDT , Service support ,
== END ==
PROVIDERS: Family Provider Family Medicine; PCP Family Medicine; Referring Provider Obstetrics & Gynecology; Visit Provider Obstetrics & Gynecology
DX: N64.4 Mastodynia (principal); N64.52 Nipple discharge
CPT/HCPCS: 76642; 77062; 77066; G0279

== ENCOUNTER 2019-01-23 20:27 | Emergency (ER) | payer OTHER, SELFPAY ==
[2019-01-15 13:31] VITALS: BMI 22.3
[2019-01-23] VITALS (7 sets, daily range): BP systolic 100–113; BP diastolic 71–86; PULSE 73–86; RESP 16; TEMP 36.6; O2SAT 96–100; BMI 22.5
--- NOTE | 2019-01-23 20:38 | ED.RN ---
RN CALLED FOR EKG, PULLED OLD EKGS FOR
--- NOTE | 2019-01-23 21:14 | EKG12_ITS ---
Test Reason : CP Blood Pressure : / mmHG Vent. Rate : 079 BPM Atrial Rate : 079 BPM P-R Int : 142 ms QRS Dur : 080 ms QT Int : 406 ms P-R-T Axes : 065 064 068 degrees QTc Int : 465 ms Normal sinus rhythm Possible Left atrial enlargement Borderline ECG Confirmed by GANGA MARTIN, CHARLENE ([id number]), school photograph editor LATANYA IGNACIO ([id number] on 01/27/2019 2:49:35 PM Referred By: Jacob Doan Confirmed By:CHARLENE SCHULER MD
--- NOTE | 2019-01-23 21:20 | RAD_ITS ---
STUDY: X-RAY CHEST REASON FOR EXAM: Female, 43 years old. Chest pain TECHNIQUE: Single AP portable view of the chest. COMPARISON: 09/06/15 FINDINGS: The lungs are clear and expanded. There is no demonstrated pleural abnormality. Normal size heart. Normal mediastinum and fausto. Normal visualized pulmonary arteries. Normal visualized aortic arch and descending thoracic aorta. Normal visualized thoracic spine. Normal visualized ribs, clavicles, and shoulders. There is no demonstrated abnormality of the visualized soft tissue structures of the upper abdomen. RAD/Chest 1 View (Portable) IMPRESSION: Normal x-ray examination of the chest. Electronically Signed: Von Diaz DO at 21:34 EDT Tel , Service support ,
[2019-01-23 21:34] LABS: Absolute Lymphocyte Count 2.17 X10^3/ul (0.83-4.51); Absolute Neutrophil Count 2.9 X10^3/uL (2.0-7.7); Basophil# 0.03 X10^3/uL; Basophil% 0.5 % (0-1); Eosinophil# 0.22 X10^3/uL; Eosinophils% 3.6 % (0-5); Hematocrit 42.9 % (37-47); Hemoglobin 14.3 g/dl (12.0-15.0); Lymphocyte # 2.17 X10^3/ul (4.0); Lymphocyte % 35.6 % (19-41); Mean Corp Hgb Conc 33.3 g/gl (32-36); Mean Corpuscular Hgb 32.6 pg (27.0-32.0); Mean Corpuscular Volume 97.7 fL (81-99); Mean Platelet Vol. 9.6 fl (6.2-12.0); Monocyte# 0.74 X10^3/uL; Monocyte% 12.1 % (0-10); Neutrophil # 2.93 X10^3/uL (2.7-7.7); POSITIVE COUNT NO; POSITIVE DIFFERENTIAL NO; POSITIVE MORPHOLOGY NO; Platelet Count 252 K/mm3 (150-450); RBC Distribution Width CV 13.1 % (11.6-14.6); RBC Distribution Width SD 47.1 fl (35.1-43.9); Red Blood Count 4.39 M/mm3 (4.2-5.4); White Blood Count 6.1 K/mm3 (4.4-11.0)
--- NOTE | 2019-01-23 21:36 | ED.VISSUMM ---
- ER Visit Summary Date of Service: 01/23/19 Chief Complaint: Chest pain History of Present Illness: The patient is a 43 F who presents with chest pain that began today. Patient describes the pain as throbbing. Patient states the pain is over the substernal and left parasternal areas. Patient states nothing makes it better or worse. Patient admits to some nausea and vomiting. Patient admits to a cough and shortness of breath. Patient also admits to some lightheadedness. Patient denies any palpitations or diaphoresis. Patient denies any fevers or chills. Cardiac risk factors include family history of coronary artery disease and smoking. Physical Examination: Vital signs are stable. Patient is afebrile. Patient is in no acute distress. Oral mucosa is pink and moist. Neck is supple. Trachea is midline. There is no JVD noted. Heart was regular rate and rhythm. Lungs are clear and equal bilateral. Abdomen is soft. Bowel sounds are normal. There is no tenderness. There is no guarding noted. Skin is warm dry. Cranial nerves II through XII are intact. There are no focal motor or sensory deficits noted. The remaining physical exam is within normal limits. Test Results: EKG shows a normal sinus rhythm with a rate of 79. There are no acute ST or T wave changes. This is unchanged compared to previous EKG dated 12/05/2018. CBC, basic metabolic profile, troponin were obtained and were within normal limits. Chest x-ray does not show any acute cardiopulmonary process. Emergency Department Course and Treatment: Patient was given aspirin and sublingual nitro here. Patient complained of a persistent headache. Patient was ordered Tylenol but she refused. Patient was given a dose of morphine and Zofran here. Patient has a HEART score of 1. Patient was advised that this is low risk for acute cardiac event. Patient was advised that this may be related to her fibromyalgia or MS. Patient was instructed to follow-up with her primary care physician in 7-10 days. Patient understood and was agreeable with the plan. All questions were answered. Disposition: Discharge home Impression: 1. Chest pain of uncertain etiology 2. Cephalgia This note was generated with [employer] dictation software. It may contain incorrect words, spelling, and punctuation that were not noted in review of the chart prior to signing ED Disposition - Plan for ED Patient: Disposition: Home or Assisted Living Diagnosis: Chest pain of uncertain etiology, Headache Instructions: ED Chest Pain Atypical Unkn Cause Referrals: Sabrina Benites DO [Primary Care Provider] - 5-7 Days
[2019-01-23] MEDS: Aspirin 81 MG TAB.CHEW 324 MG PO (21:41)
[2019-01-23 21:47] LABS: Anion Gap 3 (5-15); BUN 6 mg/dL (7-18); BUN/Creat Ratio 8.8 RATIO (10-20); Calcium,Total 8.2 mg/dL (8.5-10.1); Chloride 105 mmol/L (98-107); Creatinine, Serum 0.68 mg/dL (0.55-1.02); EST Glomerular Filtration Rate 101 mL/min (>60); Est Glom Filt Rate - Afr Amer 122 mL/min (>60); Estimated Creatinine Clearance 94.02 ml/min; Glucose 88 mg/dL (74-106); Potassium 3.2 mmol/L (3.5-5.1); Sodium Level 139 mmol/L (136-145)
--- NOTE | 2019-01-23 22:13 | ED.RN ---
NITRO HELD DUE TO BP 100/84, DR. FLORES INFORMED OF SAME.
[2019-01-23] MEDS: Morphine 2 MG/ML Syringe IV ×2 (22:36→23:14)
[2019-01-23] MEDS: Ondansetron 4 MG/2 ML Vial IV (22:37)
--- NOTE | 2019-01-23 23:01 | ED.RN ---
ATTEMPTED TO DISCHARGE PT, PT REFUSED TO LEAVE. DR. FLORES INFORMED OF SAME.
== END 2019-01-23 23:31 | disposition home or self-care (01) ==
PROVIDERS: Emergency Provider Emergency Medicine
DX: R07.9 Chest pain, unspecified (principal); R51 Headache; R11.2 Nausea with vomiting, unspecified; R05 Cough; R06.02 Shortness of breath; R42 Dizziness and giddiness; M54.2 Cervicalgia; M54.9 Dorsalgia, unspecified; M79.7 Fibromyalgia; Z72.0 Tobacco use; Z82.49 Family history of ischemic heart disease and other diseases of the circulatory system
CPT/HCPCS: 71045; 80048; 84484; 85025; 93005; 96374; 96375; 96376; 99285; A4216; J2405

== ENCOUNTER 2019-02-03 09:00 | Outpatient (RCR) | payer OTHER, SELFPAY ==
[2019-02-03 01:14] VITALS: BP 97/63; PULSE 80; RESP 14; BMI 20.1
--- NOTE | 2019-02-03 14:22 | BH.MDN ---
Multi-Disciplinary Note - Note Family Time Started:: 09:05 Date: 02/03/19 Purpose of session/treatment goals addressed:: The purpose of this session was to engage client's , Jon, in client's treatment by providing psychoeducation and communicating client's support needs. Another goal was to review maintenance strategies, aftercare, and medication. Eye Contact:: Good Motor Activity:: Appropriate Appearance:: Casual Mood:: Euthymic, Other - fatigued Affect:: Congruent - tearful, but reporting happy tears. Thoughts:: Linear, Logical, No evidence of hallucinations/delusions noted Staff Interventions:: Therapist used open-ended questions and active listening to gather information on the couple's expectations for the session. Therapist advocated for client and helped client and her create strategies to provide positive support to each other. Therapist reviewed fair fighting rules, healthy stress management strategies, and thought challenging techniques. Therapist reviewed client's progress and addressed ongoing concerns. Therapist provided psychoeducation on client?s diagnoses and medication management. Therapist helped the couple identify ways they can support one another and how to improve communication. Therapist gave the couple resources for aftercare and explored ongoing benefits of counseling as a couple. Client Response:: Client and her responded well to session, open to meeting with therapist. The couple explained what led to their separation last week and how unmanaged emotions, miscommunication, and negative thinking played a role in the decision. The couple processed how they got back together and the changes they are both working to make to improve their marriage. Throughout session client and her were able to have a calm discussion of strategies to improve mood stability, communication, and conflict resolution. Client shared she feels on cloud 9 because her went to [employer] with her and has decided to go to counseling to work on his own mental health issues. Client continues to be receptive to continuing her own individual counseling as well as engaging in other activities to increase her social support. Client reported she still struggles with managing her emotions when she and her fight. Therapist reviewed fair fighting rules as well as emotional regulation skills. Client and were both agreeable to practice these strategies. Client had expressed some concerns about possibly being manic due to staying up all night on Sunday. After further exploration, it appears no other symptoms of lam are present at this time. The couple and therapist will continue to monitor. Client had some medication questions and concerns. Client and her were receptive to psychoeducation from therapist and both were agreeable to monitor and keep client's medications in a safe place. Risks/Concerns:: Client denies any suicidal ideations, plan, and intent as of 02/03/19. Progress Toward Goals/Plan:: Client's progress and mood continues to correlate and fluctuate based on external situations and stressors. Client currently reports a hopeful and positive mood due to client and her getting back together. Client's reported he is willing to make changes in order for the relationship to work. Client continues to struggle with emotional dysregulation and consistently applying coping skills. Client, therapist, and discussed aftercare options to promote mood stability and mental wellness. Per the couple's report, they plan to both get individual counseling and then also get couple's counseling. The couple acknowledges importance of medication compliance and ongoing monitoring of client's medications as there were reported issues last week. Client agreeable to continue IOP this week to reinforce healthy coping skills and solidify aftercare. Client to discharge on Sunday02/07/19. Time Stopped:: 09:45
--- NOTE | 2019-02-05 10:07 | BH.SGPN.GN ---
Behaviors/Verbalizations/Mental Status: [Client eye contact good, grooming and attire casual, motor activity WNL, speech normal rate and tone rambling at times, mood anxious , congruent affect, thoughts linear and intact some evidence of racing in nature, no evidence of delusions or hallucinations] Client Response/Progress/Benefit: [Pt receptive of session, attentive to discussion, and providing input throughout however often struggling to remain on topic or interrupting others. Pt listening and worked with group to reflect upon the quote regarding how we make decisions in our own lives. She at times appeared to be distracted by own thoughts but was able to be redirected and return to topic. Pt indicated agreeing with others as they shared and expressed that that lack of knowledge of healthy skills and habit can prevent making healthy decisions in daily life. Pt made connections to her own substance use hx. She appeared to benefit from group discussion regarding ?Chapters of My Life? poem and provided insight regarding how each chapter can represent the various stages in management of mental health sx and healthy decision making. Pt did well to assess her own current mental health progress and indicated being in Chapter 2 or 3 at this point in her life and tx. Pt progress noted in improved ability to reflect on her own experiences and impact they have had on mental health, however progress continues to be impacted by pt ability to apply tx materials outside of group environment. Recommended continued tx to continue to promote healthy change behaviors, reduce anxiety, and prevent decompensating. ] Narrative Note: []
--- NOTE | 2019-02-05 11:15 | BH.SGPN.GN ---
Behaviors/Verbalizations/Mental Status: [] Client Response/Progress/Benefit: [] Pt was an active participant in group activity and discussion. Participated in group discussion about what helps people move through the chapters of their life. Completed that WDEP (wants, Doing, Evaluate, Plan) Worksheet and discussed with peers in small groups. Identified a want as to be confident and strong at this point in my life, identified things that she is doing in regards to that want which include; thinking before reacting and communicating. She evaluated what she is doing stating that she is more mindful of her surrounding and is feels more calm. Discussed her plan to continue on pace with her want stating that she needs to better plan out things, decrease stinkin thinkin, and set herself up for success. Benefited from group as she was able to identify personal steps she is doing to accomplish her want or goal. Narrative Note: []
--- NOTE | 2019-02-06 09:05 | BH.SGPN.GN ---
Behaviors/Verbalizations/Mental Status: []Client alert and oriented, neatly dressed and groomed. Eye contact good. Motor activity restless. Speech rapid, tangential. Affect labile- crying and then laughing, mood anxious. Thoughts linear, logical, no signs of hallucinations or delusions. Reviewed client?s symptom tracker, no risk for suicidal ideation, plan, or intent as of 02/06/19. Client Response/Progress/Benefit: []Client responded somewhat well to session, providing supportive statements to peers, but demonstrating labile mood and affect. Client shared her mood today is ?all over the place.? Client shared her home life is ?coming together? as she and her are working things out and they just got an quality assistant to get full custody if her ?s son. However, client is feeling worried and scared because she is going to need a biopsy of her breast. Client shared she is fearful she has breast cancer. The group provided supportive statements which reduced client?s crying. Client shared she is trying to stay positive about the situation. Client appeared to benefit from group emotional support. Progress noted as client and her have shown improvement in conflict resolution skills. However, client continues to struggle with mood stability, emotional dysregulation, and use of internal coping skills. Client to continue IOP to prevent decompensation while client deals with current stressors.
--- NOTE | 2019-02-06 10:21 | BH.SGPN.GN ---
Behaviors/Verbalizations/Mental Status: [Client eye contact good, grooming and attire casual, motor activity WNL, speech normal rate and tone rambling at times, mood anxious and euthymic, congruent affect, thoughts linear and intact some evidence of racing in nature, no evidence of delusions or hallucinations] Client Response/Progress/Benefit: [Client responded well to session, mostly positive contributions to discussion, though at times struggling to remain on topic. Client engaged in the discussion of what it means to ?take action? in one?s mental health treatment and expressed realizing that it was time for herself to take action in changing some of the things in her life that impact her mental health. Client agreed with peers that to make change, one needs self-awareness, motivation, an support. Client identified things in her life she wants to start taking control over and change. These things included: negative thinking, lack of support, and anxiety. Client appeared to benefit from identifying things that are holding her back from mental wellness and learning what it means to ?take action.? Progress in increased levels of personal awareness regarding current barriers to mental health progress. Continued IOP tx recommended to maintain safety, increase emotion regulation, and prevent decompensation.] Narrative Note: []
--- NOTE | 2019-02-06 14:11 | BH.MDN ---
Multi-Disciplinary Note - Note 45-min Individual Time Started:: 11:30 Date: 02/06/19 Purpose of session/treatment goals addressed:: The purpose of this session was to address current medication concerns and utilize emotional regulation skills to prevent further escalation. Another goal was to contact client's outpatient psychiatrist for continuity of care. Eye Contact:: Fair Motor Activity:: Restless Appearance:: Casual Speech:: Rambling, Rapid Mood:: Anxious, Irritable, Depressed Affect:: Labile - tearful then laughing. This occured multiple times throughout session. Thoughts:: Linear, Logical, No evidence of hallucinations/delusions noted Staff Interventions:: Therapist used active listening and open-ended questions to explore client's current emotions and medication concerns. Therapist led client through calming strategies to prevent further escalation of anxiety symptoms. Therapist spoke with client's on the phone, per client's request, to provide updates. Therapist advocated for client and helped client make an appointment with her outpatient psychiatrist. Therapist reinforced the importance of practicing healthy coping skills in addition to medication management. Therapist to follow up with [facility] treatment team. Client Response:: Client entered session anxious and tearful. Per client's report her medication is making her act mean and hit things. Client denied causing harm to herself or others, but shared her anger is scaring her. After further exploration, client reported she had only hit something once over the past two weeks. Client reports belief her increased anger is due to her medications. Therapist tried to help client gain awareness of how the numerous recent stressors client experienced in the last two weeks may be impacting her emotions, but client disqualified these reasons. Client became increasingly tearful and called her . Client's attempted to calm client down on the phone which made client angry at first, but then it appeared to help client's mood. Client and therapist practiced self-talk and deep breathing as well. Client and therapist called the [facility] where client is established for outpatient psychiatry. Client was able to get a sooner appointment and will be seen today for medication concerns. Client and therapist discussed the importance of using coping skills in addition to medication. Client continues to report appropriate use of her medications. Client's shared he will continue to count medication when he was at [facility] for a family session on Sunday02/03/19. Risks/Concerns:: Client denies any suicidal ideations, plan, or intent as of 02/06/19. Client reports ability to maintain safety. Progress Toward Goals/Plan:: Client's mood continues to fluctuate based on external situations and stressors. Client has shown strides in reducing the duration of her symptoms and she reports progress in conflict resolution with her . Client currently reports an anxious, irritable mood due to medical issues and appointments. Client also reports belief her medication is not working effective as she has been having ?anger outbursts.? Client continues to struggle with emotional dysregulation and consistently applying coping skills without external support. Client was scheduled to see Dr. Hutchinson on 02/11/19. However, client became tearful and shared ?I?m struggling with these meds I don?t want to wait.? Therapist advocated for client and was able to get client an appointment today. Client?s was informed and agrees with the plan. Client reports verbal understanding of the importance of utilizing healthy coping skills in addition to medication monitoring. Client was to discharge from [facility] tomorrow as she acknowledges progress, however, client has an appointment at the [facility] tomorrow and will not be able to attend. Client to discharge next week. Time Stopped:: 12:15
--- NOTE | 2019-02-06 14:14 | BH.MDN_ITS ---
Multi-Disciplinary Note - Note 45-min Individual Time Started:: 11:30 Date: 02/06/19 Purpose of session/treatment goals addressed:: The purpose of this session was to address current medication concerns and utilize emotional regulation skills to prevent further escalation. Another goal was to contact client's outpatient psychiatrist for continuity of care. Eye Contact:: Fair Motor Activity:: Restless Appearance:: Casual Speech:: Rambling, Rapid Mood:: Anxious, Irritable, Depressed Affect:: Labile - tearful then laughing. This occured multiple times throughout session. Thoughts:: Linear, Logical, No evidence of hallucinations/delusions noted Staff Interventions:: Therapist used active listening and open-ended questions to explore client's current emotions and medication concerns. Therapist led client through calming strategies to prevent further escalation of anxiety symptoms. Therapist spoke with client's on the phone, per client's request, to provide updates. Therapist advocated for client and helped client make an appointment with her outpatient psychiatrist. Therapist reinforced the importance of practicing healthy coping skills in addition to medication management. Therapist to follow up with [facility] treatment team. Client Response:: Client entered session anxious and tearful. Per client's report her medication is making her act mean and hit things. Client denied causing harm to herself or others, but shared her anger is scaring her. After further exploration, client reported she had only hit something once over the past two weeks. Client reports belief her increased anger is due to her medic ations. Therapist tried to help client gain awareness of how the numerous recent stressors client experienced in the last two weeks may be impacting her emotions, but client disqualified these reasons. Client became increasingly tearful and called her . Client's attempted to calm client down on the phone which made client angry at first, but then it appeared to help client's mood. Client and therapist practiced self-talk and deep breathing as well. Client and therapist called the [facility] where client is established for outpatient psychiatry. Client was able to get a sooner appointment and will be seen today for medication concerns. Client and therapist discussed the importance of using coping skills in addition to medication. Client continues to report appropriate use of her medications. Client's shared he will continue to count medication when he was at [facility] for a family session on Sunday02/03/19. Risks/Concerns:: Client denies any suicidal ideations, plan, or intent as of 02/06/19. Client reports ability to maintain safety. Progress Toward Goals/Plan:: Client's mood continues to fluctuate based on external situations and stressors. Client has shown strides in reducing the duration of her symptoms and she reports progress in conflict resolution with her . Client currently reports an anxious, irritable mood due to medical issues and appointments. Client also reports belief her medication is not working effective as she has been having ?anger outbursts.? Client continues to struggle with emotional dysregulation and consistently applying coping skills without external support. Client was scheduled to see Dr. Hutchinson on 02/11/19. However, client became tearful and shared ?I?m struggling with these meds I don?t want to wait.? Therapist advocated for client and was able to get client an appointment today. Client?s was informed and agrees with the plan. Client reports verbal understanding of the importance of utilizing healthy coping skills in addition to medication monitoring. Client was to discharge from [facility] tomorrow as she acknowledges progress, however, client has an appointment at the [facility] tomorrow and will not be able to attend. Client to discharge next week. Time Stopped:: 12:15
--- NOTE | 2019-02-10 07:47 | BH.AFTERPLAN ---
Aftercare Plan - Demographics Treatment End Date:: 02/06/19 Psychiatrist:: Jacob Doan Psychiatrist Office #:: [id number] [facility]/IOP Therapist:: Patricia Elliott Therapist Phone #:: [phone] - Medications Home Medications: Home Medications Cyclobenzaprine HCl 5 mg PO TID PRN 12/06/18 Albuterol Sulfate [Proair Hfa] 8.5 - 17 gm IH Q6H PRN 12/20/18 Fluticasone/Vilanterol [Breo Ellipta Inhaler] 1 ea IH DAILY 12/20/18 evening primrose oil 500 mg capsule 1,000 mg PO BID #28 cap 01/15/19 Clonazepam 0.5 mg PO TID 01/17/19 Fluvoxamine Maleate [Luvox] 50 mg PO DAILY 01/31/19 Gabapentin [Neurontin] 600 mg PO TIDCM 01/31/19 Olanzapine [Zyprexa Zydis] 5 mg PO QHS 01/31/19 Quetiapine Fumarate [Seroquel] 25 mg PO BREAKFAST 01/31/19 Quetiapine Fumarate [Seroquel] 50 mg PO QHS 01/31/19 Ziprasidone HCl 20 mg PO DINNER 01/31/19 - Plan Details Progress/Aftercare Plan Details:: Ludy, since starting IOP there have been highs and lows. Throughout the program, Ludy has faced numerous stressors, but she has not allowed those stressors to keep her down. Ludy has shown resilience and has seen success when practicing coping skills. Ludy has shared progress in her relationship with her , communication, and use of calming coping skills. Ludy has learned healthy coping skills to manage warning signs and triggers for anxiety, anger, and depression. Ludy can recognize stinkin thinkin quicker and has worked to challenge these negative thoughts. Ludy has awareness that there will be ups and downs, but she reports increased ability to cope with stressors. Ludy continues to struggle with managing her moods, but she and her have agreed to continue to work on this together. Ludy is established with Jerome Flynn at [facility] for individual counseling, Dr. Hutchinson at [facility] for ongoing psychiatry, and is registered for [facility]. Ludy was also provided information for [facility] and [employer]. Great work, Ludy! Strategies for Success:: 1. Practice, practice, practice! Keep up with using coping skills such as deep belly breathing, 5-senses, and self-talk. 2. Recognize warning signs and triggers! Use communicated breaks and other strategies to calm down and prevent setbacks. 3. Consistency! Stay consistent with appointments, medication compliance, and practicing healthy coping skills. 4. Maintain a healthy routine and schedule. Try [facility], supervisor finishing department work, or the library. 5. Challenge stinkin thinkin or negative thoughts! Remember to take and time and check in with the thoughts before reacting to a situation. Is it true? Is it helpful? Do I know all the information? 6. Remember the fair fighting rules and practice managing emotions daily. 7. When in doubt, talk it out! Remember assumptions and mind-reading can cause further stressors. 8. Continue engaging in self-care activities to help reduce stress. Coloring, denominational, and drawing. 9. Remember opposite action and thought challenging can both help break out of negative maintenance cycles. - Appointments Appointments/Referrals to Other Services:: 1. Follow up with Jerome Moya- next appointment is 02/12/19 at 10:00am. 2. Follow up with Dr. Hutchinson at [facility]. Last appointment was 02/06/19. 3. Resources provided for should you want to follow through with receiving services there. 4. Wrap is every Sunday from 1-2pm for the next five weeks. 5. [facility] encouraged to increase social support and healthy coping skills.
--- NOTE | 2019-02-10 09:05 | BH.SGPN.GN ---
Behaviors/Verbalizations/Mental Status: []Client alert and oriented, casually dressed and well groomed. Eye contact good. Motor activity appropriate. Speech within normal limits. Affect congruent- tearful about leaving IOP, mood euthymic. Thoughts linear, logical, no signs of hallucinations or delusions. Reviewed client?s symptom tracker, no risk for suicidal ideation, plan, or intent as of 02/10/19. Client Response/Progress/Benefit: []Client responded well to session, providing positive input. Client reports feeling ?happy and optimistic? today as it is her last day in [facility]. Client shared she continues to have ongoing stressors, but she has seen progress in herself. Client reported ?I?m not the girl in the corner anymore? and that she has learned how to help herself. Client identified progress in using calming coping skills and recognizing ?stinkin thinkin.? Client shared she is worried about maintaining progress once she graduates from [facility], but the group normalized this worry and helped client identify supportive factors. Client appeared to benefit from connecting with peers. Client to discharge from [facility] today as she has made progress towards treatment goals and reports ?I?m ready.? Client was encouraged to follow up with aftercare as she can continue to benefit from further emotional regulation and medication management.
--- NOTE | 2019-02-10 10:18 | BH.SGPN.GN ---
Behaviors/Verbalizations/Mental Status: [Client alert and oriented, casually dressed and groomed. Eye contact good. Motor activity appearing restless at times, appropriate. Speech normal rate and tone, at times rambling or off topic. Affect congruent and bright, mood euthymic. Thoughts tangential at times though mostly able to remain on topic compared to baseline, no signs of hallucinations or delusions. ] Client Response/Progress/Benefit: [Client responded well to session, providing input and actively engaged throughout discussion. At time she struggled with remaining on topic or interrupting others when providing input. Client connected with the topic of cognitive distortions and discussed with the group ways in which thoughts can have a positive or negative impact on mental health. Client provided an example of using distorted thinking regarding her . Client went on to describe how ?stinking thinking? can lead to conflict. She aided the group in defining and reflecting upon various types of distortions, providing examples of times she has disqualified the positive. Client appeared to benefit from increasing awareness of how cognitive distortions impact mental health and displayed progress in her ability to connect materials discussed with her own mental health. Client to discharge from IOP program today given progress and begin individual outpatient counseling. ] Narrative Note: []
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
--- NOTE | 2019-02-10 11:25 | BH.SGPN.GN ---
Behaviors/Verbalizations/Mental Status: []Pt eye contact good, casually dressed, motor activity appropriate, speech normal rate and tone, mood anxious, congruent affect, thoughts linear and intact, no evidence of delusions or hallucinations. Client Response/Progress/Benefit: []Client engaged in session as evidenced by client listening attentively to others and contributing thoughts to discussion. Client connected with discussion about needing to put effort into challenging distorted thought patterns because recognizes if doesn't try to challenge thoughts then nothing will change. Client identified overgeneralizing and all or nothing to be the cognitive distortion that she most often uses. Client provided examples of distorted thought patterns she has had in the past and stated she often creates worse case scenarios. Client able to connect impact distorted thought patterns have on her mental health and relationships. Client worked with peers to identify distortions and reframe the distorted thought to a realistic, rational thought. Client showing progress with improved insight and awareness of cognitive distortions compared to when she first started IOP. Client has made significant progress since starting IOP and is discharging from program today. Narrative Note: []
== END 2019-02-10 14:00 | disposition home or self-care (01) ==
LOC: BHIOP 09:00
PROVIDERS: Referring Provider Psychiatry & Neurology Psychiatry; Visit Provider Psychiatry & Neurology Psychiatry
DX: F41.1 Generalized anxiety disorder (principal); F42.9 Obsessive-compulsive disorder, unspecified; F43.12 Post-traumatic stress disorder, chronic; F12.10 Cannabis abuse, uncomplicated; F19.11 Other psychoactive substance abuse, in remission
CPT/HCPCS: H0035; 90834; 90847; 90853

== ENCOUNTER 2019-02-04 17:33 | Emergency (ER) | payer OTHER, SELFPAY ==
[2019-02-04 17:33] VITALS: BMI 22.5
[2019-02-04 17:34] VITALS: BP 137/82; PULSE 89; RESP 16; TEMP 37.1; O2SAT 100; BMI 22.3
--- NOTE | 2019-02-04 18:05 | ED.VISSUMM ---
- ER Visit Summary Date of Service: 02/04/19 Chief Complaint: Bilateral breast pain History of Present Illness: The patient is a 43 F history of breast lumps for which she is being evaluated. She had both mammograms and a breast ultrasound today. She is currently seeing a surgeon at the [facility] that is pending to do breast biopsies on her this Sunday. She has had prior biopsies in the past but is never had breast cancer. She is requesting narcotic pain medication. She explained to me that her [employer] and her general surgeon turned her down for pain medication prescriptions. The surgeon said he could write her for some after and if she needed surgery. This problem has been ongoing for the last 4 months. He does have discharge from her left breast that is not new. She denies any fever or redness. Physical Examination: Middle-aged female. No acute distress. Vital signs are stable and afebrile. HEENT exam unremarkable. Neck nontender. Lungs clear to auscultation bilaterally. Heart regular rhythm no murmur. Abdomen is soft and nontender. She is moving all 4 extremities. I do not appreciate any axillary lymphadenopathy. I did not do a breast exam because he has had this evaluated and had mammograms and altered sound today. Neurologically she is awake and alert with no focal motor deficits. Test Results: None Emergency Department Course and Treatment: I did explain the patient she has multiple physicians that are currently seeing her and that would be appropriate for me to write her for narcotic prescription. I will give her one Amber to use at home at night but otherwise any further pain meds without be prescribed by her physicians that are taking care of her on a daily basis. Treatment Plan: Follow-up with her biopsy later this week. Tylenol for pain. Disposition: Discharge Impression: Bilateral breast pain and workup for breast masses. This note was generated with theRightAPI dictation software. It may contain incorrect words, spelling, and punctuation that were not noted in review of the chart prior to signing ED Disposition - Plan for ED Patient: Referrals: Sabrina Benites DO [Primary Care Provider] -
--- NOTE | 2019-02-04 18:09 | ED.DCSUM_ITS ---
- ER Visit Summary Date of Service: 02/04/19 Chief Complaint: Bilateral breast pain History of Present Illness: The patient is a 43 F history of breast lumps for which she is being evaluated. She had both mammograms and a breast ultrasound today. She is currently seeing a surgeon at the [facility] that is pending to do breast biopsies on her this Sunday. She has had prior biopsies in the past but is never had breast cancer. She is requesting narcotic pain medication. She explained to me that her RN LIAISON and her general surgeon turned her down for pain medication prescriptions. The surgeon said he could write her for some after and if she needed surgery. This problem has been ongoing for the last 4 months. He does have discharge from her left breast that is not new. She denies any fever or redness. Physical Examination: Middle-aged female. No acute distress. Vital signs are stable and afebrile. HEENT exam unremarkable. Neck nontender. Lungs clear to auscultation bilaterally. Heart regular rhythm no murmur. Abdomen is soft and nontender. She is moving all 4 extremities. I do not appreciate any axillary lymphadenopathy. I did not do a breast exam because he has had this evaluated and had mammograms and altered sound today. Neurologically she is awake and alert with no focal motor deficits. Test Results: None Emergency Department Course and Treatment: I did explain the patient she has multiple physicians that are currently seeing her and that would be appropriate for me to write her for narcotic prescription. I will give her one [place] to use at home at night but otherwise any further pain meds without be prescribed by her physicians that are taking care of her on a daily basis. Treatment Plan: Follow-up with her biopsy later this week. Tylenol for pain. Disposition: Discharge Impression: Bilateral breast pain and workup for breast masses. This note was generated with [employer] dictation software. It may contain incorrect words, spelling, and punctuation that were not noted in review of the chart prior to signing ED Disposition - Plan for ED Patient: Referrals: Sabrina Benites DO [Primary Care Provider] -
--- NOTE | 2019-02-04 18:09 | ED.DEP ---
ED Disposition - Plan for ED Patient: Disposition: Home or Assisted Living Referrals: Sabrina Benites DO [Primary Care Provider] - As Needed Additional Instructions: Follow-up with either your breast surgeon or Dr. Salas for chronic pain medication and pain management.
[2019-02-04] MEDS: HYDROcodone Bitartrate/Apap 5/325 Tablet PO (18:14)
== END 2019-02-04 18:16 | disposition home or self-care (01) ==
LOC: ED 18:15
PROVIDERS: Emergency Provider Emergency Medicine
DX: N64.4 Mastodynia (principal); F32.9 Major depressive disorder, single episode, unspecified; Z72.0 Tobacco use; Z79.899 Other long term (current) drug therapy; Z87.442 Personal history of urinary calculi
CPT/HCPCS: 99283

== ENCOUNTER 2019-03-01 17:37 | Emergency (ER) | payer OTHER, SELFPAY ==
[2019-03-01 17:39] VITALS: BP 113/45; PULSE 87; RESP 14; TEMP 36.9; O2SAT 100; BMI 21.4
--- NOTE | 2019-03-01 18:09 | ED.VISSUMM ---
- ER Visit Summary Date of Service: 03/01/19 Chief Complaint: Back pain History of Present Illness: The patient is a 43 F prior lumbar fusion of L4-5 and S1 x2 in 2003 and . Patient states she went to sit on a chair 1 week ago the chair went out from under her and she fell to the side and backwards landing awkwardly on her back and pelvis. She denies any LOC or other injuries. Since that time she had lower back pain. Says she does have some pain radiating to her left hamstring and left thigh. No weakness or numbness. No bowel or bladder incontinence or retention. She is on no blood thinners. Physical Examination: Middle-aged female no acute distress vital signs stable afebrile. HEENT exam atraumatic. Nontender. C-spine nontender trachea midline. Lungs clear to auscultation bilaterally. Chest nontender. Heart regular rhythm no murmur. Abdomen soft and nontender. Pelvic roll intact. Extremities moves all 4. Neurovascular intact. She has normal dorsi plantarflexion of both lower extremities. No cauda equina. Normal motor strength and sensation. Normal range of motion. Negative straight leg raise. Spine she is well-healed surgical incision of her lumbar spine. She has tenderness on her posterior iliac crest. No ecchymosis or bruising. No signs of trauma. Neurologically she is awake and alert with no focal motor or sensory deficits. No cauda equina. Test Results: Patient was offered but deferred a plain film of her lumbar spine. She may follow-up for an MRI per her request. Emergency Department Course and Treatment: [place] home pack and otherwise anti-inflammatories and her gabapentin for pain. Follow-up with a local orthopedic surgeon. Treatment Plan: Ice to the area. Limited [place] home pack for pain. Otherwise NSAIDs. Follow-up with a orthopedic spine doctor. Disposition: Discharge Impression: Low back pain status post fall History of degenerative disc disease of L4, 5 and S1 fusions This note was generated with [employer] dictation software. It may contain incorrect words, spelling, and punctuation that were not noted in review of the chart prior to signing ED Disposition - Plan for ED Patient: Referrals: Sabrina Benites DO [Primary Care Provider] -
--- NOTE | 2019-03-01 18:13 | ED.DCSUM_ITS ---
- ER Visit Summary Date of Service: 03/01/19 Chief Complaint: Back pain History of Present Illness: The patient is a 43 F prior lumbar fusion of L4-5 and S1 x2 in 2003 and . Patient states she went to sit on a chair 1 week ago the chair went out from under her and she fell to the side and backwards landing awkwardly on her back and pelvis. She denies any LOC or other injuries. Since that time she had lower back pain. Says she does have some pain radiating to her left hamstring and left thigh. No weakness or numbness. No bowel or bladder incontinence or retention. She is on no blood thinners. Physical Examination: Middle-aged female no acute distress vital signs stable a febrile. HEENT exam atraumatic. Nontender. C-spine nontender trachea midline. Lungs clear to auscultation bilaterally. Chest nontender. Heart regular rhythm no murmur. Abdomen soft and nontender. Pelvic roll intact. Extremities moves all 4. Neurovascular intact. She has normal dorsi plantarflexion of both lower extremities. No cauda equina. Normal motor strength and sensation. Normal range of motion. Negative straight leg raise. Spine she is well-healed surgical incision of her lumbar spine. She has tenderness on her posterior iliac crest. No ecchymosis or bruising. No signs of trauma. Neurologically she is awake and alert with no focal motor or sensory deficits. No cauda equina. Test Results: Patient was offered but deferred a plain film of her lumbar spine. She may follow-up for an MRI per her request. Emergency Department Course and Treatment: [place] home pack and otherwise anti- inflammatories and her gabapentin for pain. Follow-up with a local orthopedic surgeon. Treatment Plan: Ice to the area. Limited [place] home pack for pain. Otherwise NSAIDs. Follow-up with a orthopedic spine doctor. Disposition: Discharge Impression: Low back pain status post fall History of degenerative disc disease of L4, 5 and S1 fusions This note was generated with [employer] dictation software. It may contain incorrect words, spelling, and punctuation that were not noted in review of the chart prior to signing ED Disposition - Plan for ED Patient: Referrals: Sabrina Benites DO [Primary Care Provider] -
--- NOTE | 2019-03-01 18:14 | DCINST.ED_ITS ---
ED Disposition - Plan for ED Patient: Disposition: Home or Assisted Living Instructions: ED Contusion Back Referrals: Sabrina Benites, [Primary Care Provider] - As soon as possible Sree Wu DO [STAFF PHYSICIAN] - As soon as possible Additional Instructions: I see her back. Hot shower warm bath to relax the muscles. Limited [place] for pain. Call follow-up with Dr. Sree Wu for further evaluation of your spine.
[2019-03-01] MEDS: HYDROcodone Bitartrate/Apap 5/325 Tablet PO (18:24)
== END 2019-03-01 18:33 | disposition home or self-care (01) ==
LOC: ED 18:31
PROVIDERS: Emergency Provider Emergency Medicine
DX: M54.5 Low back pain (principal); G89.29 Other chronic pain; M51.37 Other intervertebral disc degeneration, lumbosacral region; M79.7 Fibromyalgia; Z79.899 Other long term (current) drug therapy; Z87.442 Personal history of urinary calculi
CPT/HCPCS: 99282

== ENCOUNTER 2019-03-17 10:03 | Emergency (ER) | payer OTHER, SELFPAY ==
[2019-03-17 10:04] VITALS: BP 142/93; PULSE 100; RESP 18; TEMP 36.8; O2SAT 99; BMI 18.8
--- NOTE | 2019-03-17 10:29 | RAD_ITS ---
STUDY: X-RAY CHEST REASON FOR EXAM: Female, 44 years old. Anxiety and panic attacks. Productive cough. Chills and fever. TECHNIQUE: PA and lateral views of the chest. COMPARISON: Comparison is made with prior study dated January 23, 2019. FINDINGS: EKG electrodes are seen. Hyperinflation. There is no demonstrated pleural abnormality. Normal size heart. Normal mediastinum and fausto. Normal visualized pulmonary arteries. Normal visualized aortic arch and descending thoracic aorta. Normal visualized thoracic spine. Normal visualized ribs, clavicles, and shoulders. There is no demonstrated abnormality of the visualized soft tissue structures of the upper abdomen. RAD/Chest PA and Lateral IMPRESSION: Hyperinflation. Electronically Signed: Hardy Lobo, at 11:31 EDT , Service support ,
[2019-03-17 10:35] VITALS: PULSE 100; RESP 18; O2SAT 98
[2019-03-17] MEDS: 0.9% Normal Saline 1,000 ML 1000 ML IV (10:35)
[2019-03-17] MEDS: Albuterol 2.5 MG/3 ML VIAL.NEB. INHALATION ×3 (10:35→10:50)
[2019-03-17] MEDS: Ipratropium/Albuterol Sulfate 3 ML AMPUL.NEB INHALATION (10:35)
--- NOTE | 2019-03-17 10:35 | ED.DCSUM_ITS ---
History of Present Illness Chief Complaint: Anxiety Detail of Chief Complaint: Weakness and respiratory symptoms Informant: Patient, Significant Other Onset: Days - 7 to 10 days Context: Sudden Onset Timing: Continuous Quality: Generalized weakness with productive cough subjective fever Location: Not applicable Current Severity: Moderate Maximum Severity: Severe Worsened by: Activity Relieved by: Nothing Associated Symptoms: Increased anxiety and panic attacks. Patient d/c Geodon and Klonopin Narrative: Patient is a 44-year-old woman who presents with generalized weakness, increased anxiety attacks that started 10 days ago. She has had a cough that is productive for the past 7 days. She is a smoker. She discontinued her Geodon and Klonopin because of documentation issue. She states her doctor informed her to increase medication and since there was no documentation the physician's nurse practitioner did not write for more medication. Patient denies ocular, visual auditory symptoms and specifically photophobia. She does complain of mild headache. She does have a cough productive of creamy white sputum with brown specks. She denies blood. She does report increased shortness of breath and wheezing. She reports nausea without vomiting diarrhea. She denies dysuria, frequency, urgency or hematuria. She states she aches and feels bad. She states she has not been out in the sun. She appears tanned. Prior similar symptoms: No Recent Illness/Hospitalization: No - Past Medical History (1) COPD bronchitis Status: Chronic (2) Chronic pain Status: Chronic (3) Chronic posttraumatic stress disorder Status: Chronic (4) Fibromyalgia Status: Chronic (5) IV drug abuse Status: Chronic (6) Multiple sclerosis, primary chronic progressive Status: Chronic Past Medical History - Allergies and Home Meds Allergies/Adverse Reactions: Allergies amitriptyline Allergy (Verified 03/17/19 10:08) Swelling azithromycin [From Zithromax] Allergy (Verified 03/17/19 10:08) Other gets very agitated with it cephalexin monohydrate [From Keflex] Allergy (Verified 03/17/19 10:08) Hives meloxicam [From Mobic] Allergy (Verified 03/17/19 10:08) Swelling NSAIDS (Non-Steroidal Anti-Inflamma Allergy (Verified 03/17/19 10:08) Shortness of breath prednisone Allergy (Verified 03/17/19 10:08) Shortness of breath amoxicillin trihydrate [From Augmentin] Adverse Reaction (Verified 03/17/19 10:08) Vomiting hydroxyzine [From Vistaril] Adverse Reaction (Verified 03/17/19 10:08) Other agitation lurasidone [From Latuda] Adverse Reaction (Verified 03/17/19 10:08) Other involuntary muscle movements potassium clavulanate [From Augmentin] Adverse Reaction (Verified 03/17/19 10:08) Vomiting Primary Care Physician: Sabrina Benites DO [Primary Care Provider] - Prior records reviewed: Yes Surgical History: arthroscopy, knee - left, hysterectomy, - - back surgery x 2. left ovary removal. bilateral breast surgery for infection with removal of ducts. Lives: Spouse/ Significant Other, With Family Smoking Status: Current every day smoker Alcohol: Rare - Family History Maternal Family History: Family History (Last Reviewed 01/31/19 @ 14:46 by TAYE Skelton RN) Mother Lung cancer Asthma Father Heart disease CVA (cerebral vascular accident) Aunt Breast cancer Family History: Reports: COPD Paternal Family History: Family History (Last Reviewed 01/31/19 @ 14:46 by TAYE Skelton RN) Mother Lung cancer Asthma Father Heart disease CVA (cerebral vascular accident) Aunt Breast cancer Family History: Reports: Heart Disease Review of Systems General: Reports: Chills, Fever, Malaise, Subjective, Sweats, Weight loss Eyes: Denies: Visual changes - bilaterally, Diplopia ENT: Denies: Rhinorrhea, Sore throat Cardiovascular: Denies: Chest pain, Palpitations Respiratory: Reports: Dyspnea, Cough, Sputum, Dyspnea on exertion. Denies: Orthopnea, Paroxysmal nocturnal dyspnea, -, - Gastrointestinal: Reports: Nausea Genitourinary: Denies: Dysuria, Hematuria, Frequency Musculoskeletal: Reports: Myalgias, Arthralgias, Back pain. Denies: Swelling, Extremity Pain Skin: Denies: Rash, Wounds Neurological: Denies: Headache, Weakness, Numbness Psych: Reports: Depression, Anxiety Endocrine: Denies: Heat intolerance, Cold intolerance Hematologic: Denies: Easy bruising, Easy bleeding Allergy: Denies: Uticaria, Swelling of the mouth Physical Exam Vital Signs/Narrative: Vital Signs Temp Pulse Resp BP Pulse Ox 03/17/19 10:04 98.2 F 100 18 142/93 H 99 Inital Vital Signs reviewed: Yes General: Well nourished, Well developed, No Acute Distress Head: Normocephalic, Atraumatic Eyes: Perrl, EOMI. Negative for: Pale conjunctiva, Scleral icterus, - ENT: No rhinorrhea, TM's clear, Dry mucous membranes Cardiovascular: Regular rate, Regular rhythm, No murmurs, Normal S1, Normal S2 Respiratory: No distress, Chest nontender, Wheezing, Decreased Air Movement, - - With expiratory wheezing and increased expiratory phase. Negative for: CTA bilaterally Abdomen: Soft, Nontender, Nondistended, Normal bowel sounds, No masses. Negative for: Tender, Guarding, Rebound tenderness, Hepatomegaly, Splenomegaly, Mass, Pulsatile mass Rectal: Deferred Back: Nontender, Normal Inspection. Negative for: CVA tenderness Extremities: Nontender, No edema, - - Patient has grade 1 clubbing of her fingers bilaterally. She stated no one has told her that before.. Negative for: Calf Tenderness Skin: No rash, - - She does have hooper line which would make adrenal disease less likely.. Negative for: Cyanosis, Diaphoresis, Jaundice, Pallor Neurological: Alert, Oriented x3, Cranial nerves II-XII grossly intact, Normal Strength, Normal Sensation, Normal DTR Psychological: Depressed, Tearful Diagnostic/Tx/Re-eval Chest X-Ray - ED: 2 View, Read by ED Physician, Normal, Heart, Mediastinum, Bony Structures, No Acute Disease, Chronic Changes, - - There is hyperaeration of the lungs. There is no pneumothorax, effusion or infiltrate noted. 03/17/19 10:29 Chest PA and Lateral [RAD] Stat Laboratory Results 03/17/19 03/17/19 10:40 10:40 WBC 6.6 RBC 4.89 Hgb 15.9 H Hct 46.0 MCV 94.1 MCH 32.5 H MCHC 34.6 RDW 12.8 RDW Differential 43.8 Plt Count 208 MPV 9.5 Immature Gran % (Auto) 0.200 Neut % (Auto) 53.6 Lymph % (Auto) 37.6 [place] % (Auto) 8.0 Eos % (Auto) 0.3 Baso % (Auto) 0.3 Absolute Neuts (auto) 3.5 Absolute Lymphs (auto) 2.48 Total Counted Not Reportable Sodium 139 Potassium 2.9 L Chloride 106 Carbon Dioxide 28.0 Anion Gap 5 BUN 7 Creatinine 0.71 Estim Creat Clear Calc 81.64 Est GFR (MDRD) Af Amer 116 Est GFR (MDRD) Non-Af 96 BUN/Creatinine Ratio 9.8 L Glucose 95 Calcium 8.6 - Medical Decision Making With patient's constellation of symptoms wheezing productive cough that is brown in color will obtain chest x-ray and blood work to assess for bronchitis versus pneumonia and to evaluate her other complaints. Suspect she is having increased anxiety because she discontinued taking Geodon and Klonopin. Presently she has no symptoms of withdrawal i.e. she is not tachycardic, hyperreflexic and there is no clonus. Tremors were not noted. Patient was given a dose of Ativan for anxiety. Since she has purulent sputum will place on antibiotics. Also will write for inhaler. Patient was reexamined. She is wheeze free. She needs a prescription for new inhaler. And will dispense 3 days of Ativan. ED Disposition - Plan for ED Patient: Disposition: Home or Assisted Living Diagnosis: Purulent bronchitis, Hyperactive airway disease, Anxiety Instructions: ED Upper Resp Infec Abx Tx Prescriptions: Albuterol Inhaler [Ventolin Hfa] 2 puff INHALATION Q4H PRN PRN #1 inhaler PRN Reason: Wheezing Doxycycline 100 mg PO BID #14 capsule Lorazepam [Ativan] 0.5 mg PO TID 3 Days #10 tablet Referrals: Sabrina Benites DO [Primary Care Provider] - 3-5 Days
[2019-03-17 10:50] VITALS: PULSE 105; RESP 18
[2019-03-17 10:51] LABS: Absolute Lymphocyte Count 2.48 X10^3/ul (0.83-4.51); Absolute Neutrophil Count 3.5 X10^3/uL (2.0-7.7); Basophil# 0.02 X10^3/uL; Basophil% 0.3 % (0-1); Eosinophil# 0.02 X10^3/uL; Eosinophils% 0.3 % (0-5); Hemoglobin 15.9 g/dl (12.0-15.0); Lymphocyte # 2.48 X10^3/ul (4.0); Lymphocyte % 37.6 % (19-41); Mean Corp Hgb Conc 34.6 g/gl (32-36); Mean Corpuscular Hgb 32.5 pg (27.0-32.0); Mean Corpuscular Volume 94.1 fL (81-99); Mean Platelet Vol. 9.5 fl (6.2-12.0); Monocyte# 0.53 X10^3/uL; Neutrophil # 3.53 X10^3/uL (2.7-7.7); Neutrophil % 53.6 % (47-70); POSITIVE COUNT NO; POSITIVE DIFFERENTIAL NO; POSITIVE MORPHOLOGY NO; Platelet Count 208 K/mm3 (150-450); RBC Distribution Width CV 12.8 % (11.6-14.6); RBC Distribution Width SD 43.8 fl (35.1-43.9); Red Blood Count 4.89 M/mm3 (4.2-5.4); White Blood Count 6.6 K/mm3 (4.4-11.0)
[2019-03-17 11:02] LABS: Anion Gap 5 (5-15); BUN 7 mg/dL (7-18); BUN/Creat Ratio 9.8 RATIO (10-20); Calcium,Total 8.6 mg/dL (8.5-10.1); Chloride 106 mmol/L (98-107); Creatinine, Serum 0.71 mg/dL (0.55-1.02); EST Glomerular Filtration Rate 96 mL/min (>60); Est Glom Filt Rate - Afr Amer 116 mL/min (>60); Estimated Creatinine Clearance 81.64 ml/min; Glucose 95 mg/dL (74-106); Potassium 2.9 mmol/L (3.5-5.1); Sodium Level 139 mmol/L (136-145)
[2019-03-17] MEDS: LORazepam 0.5 MG Tablet PO (11:26)
[2019-03-17 11:38] VITALS: BP 148/102; PULSE 98; RESP 18
== END 2019-03-17 11:43 | disposition home or self-care (01) ==
PROVIDERS: Emergency Provider Emergency Medicine
DX: J44.0 Chronic obstructive pulmonary disease with (acute) lower respiratory infection (principal); J41.1 Mucopurulent chronic bronchitis; G35 Multiple sclerosis; M79.7 Fibromyalgia; G89.29 Other chronic pain; F41.0 Panic disorder [episodic paroxysmal anxiety]; F41.9 Anxiety disorder, unspecified; F32.9 Major depressive disorder, single episode, unspecified; F43.12 Post-traumatic stress disorder, chronic; X58.XXXA Exposure to other specified factors, initial encounter; Y93.9 Activity, unspecified; Y92.9 Unspecified place or not applicable; Y99.9 Unspecified external cause status; F19.10 Other psychoactive substance abuse, uncomplicated; F17.200 Nicotine dependence, unspecified, uncomplicated; Z79.899 Other long term (current) drug therapy; Z88.1 Allergy status to other antibiotic agents; Z88.8 Allergy status to other drugs, medicaments and biological substances; Z88.0 Allergy status to penicillin
CPT/HCPCS: 71046; 80048; 85025; 94640; 96360; 99285; J7030

== ENCOUNTER 2021-08-02 17:40 | Emergency (ER) | payer MEDICAID, SELFPAY ==
[2021-08-02 17:42] VITALS: BP 139/100; PULSE 93; RESP 18; TEMP 36.3; O2SAT 97; BMI 18.8
[2021-08-02 19:20] VITALS: BP 148/94; PULSE 92; RESP 18; TEMP 37.2; O2SAT 98
--- NOTE | 2021-08-02 19:41 | EKG12_ITS ---
Test Reason : DYSRHYTHMIA Blood Pressure : / mmHG Vent. Rate : 079 BPM Atrial Rate : 079 BPM P-R Int : 134 ms QRS Dur : 078 ms QT Int : 436 ms P-R-T Axes : 068 065 065 degrees QTc Int : 499 ms Normal sinus rhythm with sinus arrhythmia Prolonged QT Abnormal ECG Confirmed by ABUNDIO MARTIN, NIKOLE ([id number]), film or videotape editor ADAM HERNANDEZ ([id number]) on 08/04/2021 8:46:25 AM Referred By: JIMBO Confirmed By:NIKOLE DEL CASTILLO MD
--- NOTE | 2021-08-02 19:41 | RAD_ITS ---
EXAM: XR CHEST, 1 VIEW CLINICAL INDICATION: chest pain TECHNIQUE: Frontal view of the chest. This report was created using [employer] report generation technology. COMPARISON: 03/17/2019 FINDINGS: LUNGS AND PLEURAL SPACES: Unremarkable. No consolidation or edema. No pneumothorax. No effusion. HEART: Unremarkable. Cardiac silhouette not enlarged. MEDIASTINUM: Central airways and mediastinal contour are unremarkable. BONES/JOINTS: Unremarkable. SOFT TISSUES: Unremarkable. RAD/Chest 1 View (Portable) IMPRESSION: No radiographic evidence of acute cardiopulmonary disease. Electronically Signed: Kam Gamboa MD at 20:15 EDT , Service support ,
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
[2021-08-02] MEDS: Acetaminophen 500 MG Tablet 1000 MG PO (20:05)
[2021-08-02] MEDS: Ondansetron 4 MG/2 ML Vial IV (20:06)
[2021-08-02] MEDS: LORazepam 2 MG/ML Syringe 0.5 MG IV (20:06)
[2021-08-02 20:07] LABS: Absolute Lymphocyte Count 1.22 X10^3/uL (0.83-4.51); Absolute Neutrophil Count 4.1 X10^3/uL (2.0-7.7); Basophil# 0.03 X10^3/uL; Basophil% 0.5 % (0-1); Eosinophil# 0.01 X10^3/uL; Eosinophils% 0.2 % (0-5); Hematocrit 42.5 % (37-47); Hemoglobin 14.8 g/dL (12.0-15.0); Lymphocyte # 1.22 X10^3/ul (0.83-4.51); Lymphocyte % 20.6 % (19-41); Mean Corp Hgb Conc 34.8 g/dL (32-36); Mean Corpuscular Hgb 33.3 pg (27.0-32.0); Mean Corpuscular Volume 95.7 fL (81-99); Mean Platelet Vol. 9.3 fl (6.2-12.0); Monocyte# 0.57 X10^3/uL; Monocyte% 9.6 % (0-10); NRBC Flagged by Analyzer 0 % (0-5); Neutrophil # 4.08 X10^3/uL (2.7-7.7); Neutrophil % 68.8 % (47-70); Platelet Count 274 K/mm3 (150-450); RBC Distribution Width CV 12.1 % (11.6-14.6); RBC Distribution Width SD 42.2 fl (35.1-43.9); Red Blood Count 4.44 M/mm3 (4.2-5.4); White Blood Count 5.9 K/mm3 (4.4-11.0)
[2021-08-02 20:19] LABS: Anion Gap 11 (5-15); BUN 4 mg/dL (7-18); BUN/Creat Ratio 6.4 RATIO (10-20); Calcium,Total 8.9 mg/dL (8.5-10.1); Chloride 102 mmol/L (98-107); Creatinine, Serum 0.62 mg/dL (0.55-1.02); EST Glomerular Filtration Rate 110 mL/min (>60); Est Glom Filt Rate - Afr Amer 133 mL/min (>60); Estimated Creatinine Clearance 91.21 ml/min; Glucose 144 mg/dL (74-106); Potassium 2.9 mmol/L (3.5-5.1); Sodium Level 140 mmol/L (136-145); Troponin-I HS 7 pg/mL (3.0-54.0)
[2021-08-02 21:10] VITALS: BP 119/78; PULSE 93; RESP 17; O2SAT 97; O2SAT 98
[2021-08-02] MEDS: Potassium Chloride Oral Tablet 20 MEQ 40 MEQ PO (21:17)
== END 2021-08-02 21:20 | disposition home or self-care (01) ==
PROVIDERS: Emergency Provider Emergency Medicine; PCP Nurse Practitioner Primary Care
DX: R07.89 Other chest pain (principal); M54.6 Pain in thoracic spine; E87.6 Hypokalemia; G35 Multiple sclerosis; M79.7 Fibromyalgia; F41.9 Anxiety disorder, unspecified; F17.210 Nicotine dependence, cigarettes, uncomplicated
CPT/HCPCS: 71045; 80048; 84484; 85025; 93005; 96374; 96375; 99285; A4216; J2405

== ENCOUNTER 2023-03-09 14:03 | Inpatient (IN) | payer OTHER, MEDICAID, SELFPAY ==
[2023-03-09 14:05] VITALS: BP 93/64; PULSE 107; RESP 18; TEMP 35.6; O2SAT 97
--- NOTE | 2023-03-09 15:53 | CM.ED ---
Social Work SW spoke with patient who reports she is here to get better. Patient requesting detox from alcohol and benzos. Pt reports she is working with a counselor and home health care case manager at [facility]. SW provided emotional support. Notified JARVIS Garrido coordinator. Leonora Butt BIRDCAGE ASSEMBLER, SURGICAL ONCOLOGIST
[2023-03-09 15:54] VITALS: BMI 18.2
[2023-03-09] MEDS: 0.9% Normal Saline 1,000 ML 1000 ML IV (15:56)
[2023-03-09 16:12] LABS: BUN 9 mg/dL (7-18); Creatinine, Serum 0.45 mg/dL (0.55-1.02); EST Glomerular Filtration Rate 159 mL/min (>60); Est Glom Filt Rate - Afr Amer 192 mL/min (>60); Estimated Creatinine Clearance 120.85 ml/min; Glucose 52 mg/dL (74-106)
[2023-03-09 16:13] LABS: Anion Gap 16 (5-15); BUN/Creat Ratio 19.9 RATIO (10-20); Calcium,Total 8.2 mg/dL (8.5-10.1); Chloride 92 mmol/L (98-107); Potassium 3.1 mmol/L (3.5-5.1); Sodium Level 129 mmol/L (136-145)
[2023-03-09 16:16] LABS: Absolute Lymphocyte Count 1.06 X10^3/uL (0.83-4.51); Absolute Neutrophil Count 5.1 X10^3/uL (2.0-7.7); Basophil# 0.04 X10^3/uL; Basophil% 0.6 % (0-1); Hematocrit 39.6 % (37-47); Hemoglobin 14.5 g/dL (12.0-15.0); Lymphocyte # 1.06 X10^3/ul (0.83-4.51); Lymphocyte % 15.5 % (19-41); Mean Corp Hgb Conc 36.6 g/dL (32-36); Mean Corpuscular Hgb 36.1 pg (27.0-32.0); Mean Corpuscular Volume 98.5 fL (81-99); Mean Platelet Vol. 9.1 fl (6.2-12.0); Monocyte# 0.61 X10^3/uL; Monocyte% 8.9 % (0-10); NRBC Flagged by Analyzer 0 % (0-5); Neutrophil # 5.08 X10^3/uL (2.7-7.7); Neutrophil % 74.6 % (47-70); Platelet Count 225 K/mm3 (150-450); RBC Distribution Width SD 43.6 fl (35.1-43.9); Red Blood Count 4.02 M/mm3 (4.2-5.4); White Blood Count 6.8 K/mm3 (4.4-11.0)
--- NOTE | 2023-03-09 16:17 | EDS_ITS ---
HPI History of Present Illness Chief Complaint: ETOH Intox Informant: patient [facility] Medical History Abdominal pain Abscess Back pain, chronic Change in mental status Chronic pain Chronic posttraumatic stress disorder COPD bronchitis Diarrhea Fibromyalgia IV drug abuse Lower extremity edema Multiple sclerosis, primary chronic progressive Nausea & vomiting Spinal stenosis of lumbosacral region Home Medications albuterol sulfate 90 mcg/actuation aerosol inhaler 8.5 - 17 gm IH Q6H PRN Sob &/Or Wheezing 12/20/18 [History Last Taken Unknown] fluticasone furoate 100 mcg-vilanterol 25 mcg/dose inhalation powder 1 ea IH DAILY Breathing 12/20/18 [History Last Taken Unknown] albuterol sulfate 90 mcg/actuation aerosol inhaler (Ventolin HFA) 2 puff inhal ation Q4H PRN PRN Wheezing ##1 03/17/19 [Rx Last Taken Unknown] lorazepam 1 mg tablet (Ativan) 0.5 mg PO TID PRN anxiety 03/09/23 [History Last Taken Unknown] Allergy/AdvReac Type Severity Reaction Status Date / Time amitriptyline Allergy Swelling Verified 03/09/23 14:04 azithromycin [From Zithromax] Allergy Other Verified 03/09/23 14:04 cephalexin monohydrate Allergy Hives Verified 03/09/23 14:04 [From Keflex] meloxicam [From Mobic] Allergy Swelling Verified 03/09/23 14:04 NSAIDS (Non-Steroidal Allergy Shortness Verified 03/09/23 14:04 Anti-Inflamma of breath prednisone Allergy Shortness Verified 03/09/23 14:04 of breath amoxicillin trihydrate AdvReac Vomiting Verified 03/09/23 14:04 [From Augmentin] lurasidone [From Latuda] AdvReac Other Verified 03/09/23 14:04 potassium clavulanate AdvReac Vomiting Verified 03/09/23 14:04 [From Augmentin] Family History (Updated 03/09/23 @ 17:[address] Alex Flores DO) Mother Lung cancer Asthma Father Heart disease CVA (cerebral vascular accident) Aunt Breast cancer Other Alcoholism Surgical History History of left oophorectomy Hx of cholecystectomy Hx of exploratory laparotomy Hx of hysterectomy Hx of left knee surgery Hx of spinal fusion Social History Smoking Status: Current every day smoker tobacco type: cigarettes second hand exposure: Yes alcohol intake: never substance use type: does not use caffeine: Yes frequency: does not exercise EXAM Physical Exam Const Vital Signs: 03/09/23 14:05 03/09/23 17:14 Temperature 96.1 F L 97.0 F L Temperature Source Temporal Temporal Pulse Rate 107 H 101 H Respiratory Rate 18 18 Blood Pressure 93/64 100/65 Blood Pressure Mean 73 76 Pulse Ox 97 96 Oxygen Delivery Method Room Air Room Air MDM MDM MDM Narrative Medical decision making narrative: I have personally performed a face to face assessment of the patient and have reviewed the JC Note. I performed a substantive portion of the visit including all aspects of the following. My monahan findings include: History: Patient is here requesting detox from alcohol, benzodiazepines and medical marijuana. Patient drinks about 6 cans of 16 ounce beer a day plus fireball's. If she does not drink she gets withdrawals usually in 12 to 24 hours. She gets nausea muscle aches anxiety. She also takes 0.5 mg of Ativan 3 times a day for the past year. This was prescribed due to anxiety over the loss of her parents. She denies any recent medical complaints such as fevers chills nausea or vomiting. She has had some soft stools but that is not uncommon for her. She has not seen blood. She does admit to being under a lot of stress due to going through a rough divorce and selling her trailer. But she is not suicidal. Exam: Patient is awake alert. She is tearful. I had seen her after she learned that she could not keep her phone during detox. She states the reason she wanted her phone was so she could get calls about the sale of her trailer which is supposed to be on the of this month. I did ask her if she wanted to stay because normally her detox would be approximately 3 days. She stated she did want to stay because she would be out of the hospital before the sale of that trailer. HEENT shows no trauma. Mucous membranes are moist. Lungs are clear. Heart rate is about 100. I hear no murmur. Abdomen is soft and nontender. No peripheral edema. Medical Decision Making: We will do medical work-up. Although patient has COPD her lungs are clear at this time. Her saturations are normal at 97% but she is normally on 3 L oxygen. She has good saturations off oxygen at this time but we can certainly provide this if needed. Lab Data Labs: Laboratory Results - last 24 hr 03/09/23 03/09/23 03/09/23 15:45 15:45 15:45 WBC 6.8 RBC 4.02 L Hgb 14.5 Hct 39.6 MCV 98.5 MCH 36.1 H MCHC 36.6 H RDW Std Deviation 43.6 RDW Coeff of Mook 12.0 Plt Count 225 MPV 9.1 Immature Gran % (Auto) 0.400 Neut % (Auto) 74.6 H Lymph % (Auto) 15.5 L [place] % (Auto) 8.9 Eos % (Auto) 0.0 Baso % (Auto) 0.6 Absolute Neuts (auto) 5.1 Absolute Lymphs (auto) 1.06 Nucleated RBC % 0 Sodium 129 L Potassium 3.1 L Chloride 92 L Carbon Dioxide 21.0 Anion Gap 16 H BUN 9 Creatinine 0.45 L Estim Creat Clear Calc 120.85 Est GFR (MDRD) Af Amer 192 Est GFR (MDRD) Non-Af 159 BUN/Creatinine Ratio 19.9 Glucose 52 L Calcium 8.2 L Urine Test Urine Opiates Screen Urine Methadone Screen Ur Barbiturates Screen Ur Phencyclidine Scrn Ur Amphetamines Screen MDMA (Ecstasy) Screen U Benzodiazepines Scrn Urine Cocaine Screen U Cannabinoids Screen Ur Drug Screen Comment Ethyl Alcohol 203.0 03/09/23 03/09/23 16:40 16:40 WBC RBC Hgb Hct MCV MCH MCHC RDW Std Deviation RDW Coeff of Mook Plt Count MPV Immature Gran % (Auto) Neut % (Auto) Lymph % (Auto) [place] % (Auto) Eos % (Auto) Baso % (Auto) Absolute Neuts (auto) Absolute Lymphs (auto) Nucleated RBC % Sodium Potassium Chloride Carbon Dioxide Anion Gap BUN Creatinine Estim Creat Clear Calc Est GFR (MDRD) Af Amer Est GFR (MDRD) Non-Af BUN/Creatinine Ratio Glucose Calcium Urine Test Negative Urine Opiates Screen NEGATIVE Urine Methadone Screen NEGATIVE Ur Barbiturates Screen NEGATIVE Ur Phencyclidine Scrn NEGATIVE Ur Amphetamines Screen NEGATIVE MDMA (Ecstasy) Screen NEGATIVE U Benzodiazepines Scrn NEGATIVE Urine Cocaine Screen NEGATIVE U Cannabinoids Screen POSITIVE H Ur Drug Screen Comment Ethyl Alcohol Discharge Plan Dx/Rx/DC Orders Clinical Impression: Acute alcohol intoxication, Chronic pain, Alcohol abuse, Desire for detoxification Disposition Disposition: Acute Care [facility]
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
[2023-03-09 17:07] LABS: Amphetamine Urine VISTA NEGATIVE (<1000 ng/mL); Barbiturate Urine VISTA NEGATIVE (< 200 ng/mL); Benzodiazepine Urine VISTA NEGATIVE (< 200 ng/mL); Cocaine Urine VISTA NEGATIVE (< 300 ng/mL); Methadone Urine VISTA NEGATIVE (< 300 ng/mL); PCP Urine VISTA NEGATIVE (< 25 ng/mL); THC Urine VISTA POSITIVE (< 50 ng/mL); Vista UDS pH Range 5
[2023-03-09 17:08] LABS: Ecstacy Urine VISTA NEGATIVE (< 500 ng/mL)
[2023-03-09 17:14] VITALS: BP 100/65; PULSE 101; RESP 18; TEMP 36.1; O2SAT 96
--- NOTE | 2023-03-09 17:49 | HP.PCM.HOS_ITS ---
HPI - General General Date of Admission: 03/09/23 Date of Service: 03/09/23 Chief Complaint: requesting alcohol withdrawal. HPI Narrative JOSE GUADALUPE GOMEZ, is a 47 F who presents seeking treatment for alcohol withdrawal. Patient drinks at least 6 16 ounce beers per day but also takes roughly 1.5 mg of lorazepam daily and utilizes medical marijuana. Patient expresses desire to get off all all substances. Patient's last drink of alcohol was around 10 AM today. Her symptoms primarily consisted of palpitations. Her alcohol level when she arrived the emergency room was 203. [facility] Medical History Abdominal pain Abscess Back pain, chronic Change in mental status Chronic pain Chronic posttraumatic stress disorder COPD bronchitis Diarrhea Fibromyalgia IV drug abuse Lower extremity edema Multiple sclerosis, primary chronic progressive Nausea & vomiting Spinal stenosis of lumbosacral region Home Medications albuterol sulfate 90 mcg/actuation aerosol inhaler 8.5 - 17 gm IH Q6H PRN Sob &/Or Wheezing 12/20/18 [History Last Taken Unknown] fluticasone furoate 100 mcg-vilanterol 25 mcg/dose inhalation powder 1 ea IH DAILY 12/20/18 [History Last Taken Unknown] albuterol sulfate 90 mcg/actuation aerosol inhaler (Ventolin HFA) 2 puff inhalation Q4H PRN PRN Wheezing ##1 03/17/19 [Rx Last Taken Unknown] lorazepam 1 mg tablet (Ativan) 1 mg PO TID PRN anxiety #5 tabs 08/02/21 [Rx Last Taken Unknown] potassium chloride 20 mEq tablet,extended release 20 meq PO BID #20 tabs 08/02/21 [Rx Last Taken Unknown] Allergy/AdvReac Type Severity Reaction Status Date / Time amitriptyline Allergy Swelling Verified 03/09/23 14:04 azithromycin [From Zithromax] Allergy Other Verified 03/09/23 14:04 cephalexin monohydrate Allergy Hives Verified 03/09/23 14:04 [From Keflex] meloxicam [From Mobic] Allergy Swelling Verified 03/09/23 14:04 NSAIDS (Non-Steroidal Allergy Shortness Verified 03/09/23 14:04 Anti-Inflamma of breath prednisone Allergy Shortness Verified 03/09/23 14:04 of breath amoxicillin trihydrate AdvReac Vomiting Verified 03/09/23 14:04 [From Augmentin] lurasidone [From Latuda] AdvReac Other Verified 03/09/23 14:04 potassium clavulanate AdvReac Vomiting Verified 03/09/23 14:04 [From Augmentin] Family History (Updated 03/09/23 @ 17:[address] Alex Flores, ) Mother Lung cancer Asthma Father Heart disease CVA (cerebral vascular accident) Aunt Breast cancer Other Alcoholism Surgical History History of left oophorectomy Hx of cholecystectomy Hx of exploratory laparotomy Hx of hysterectomy Hx of left knee surgery Hx of spinal fusion Social History Smoking Status: Current every day smoker tobacco type: cigarettes second hand exposure: Yes alcohol intake: never substance use type: does not use caffeine: Yes frequency: does not exercise ROS ROS Narrative Has not been eating much and losing weight. All review of systems were negative except as mentioned above in the history of present illness and the other review of systems. Vital Signs Vital Signs Vital Signs: 03/09/23 14:05 03/09/23 17:14 Temperature 35.6 C L 36.1 C L Temperature Source Temporal Temporal Pulse Rate 107 H 101 H Respiratory Rate 18 18 Blood Pressure 93/64 100/65 Blood Pressure Mean 73 76 Pulse Ox 97 96 Oxygen Delivery Method Room Air Room Air Weight Weight: 48.489 kg Body Mass Index (BMI) 18.2 Physical Exam Const alert and no apparent distress Constitutional Narrative: Nontoxic. Cachectic. HEENT normocephalic, head/scalp atraumatic, hearing grossly normal bilaterally and moist oral mucous membranes Neck no lymphadenopathy, supple, no JVD and no carotid bruits Resp normal respiratory effort, no retractions, no use of accessory muscles and clear to auscultation bilaterally Cardio regular rate, regular rhythm, S1 normal heart sound and S2 normal heart sound GI normal to inspection, nondistended, normoactive bowel sounds, soft to palpation, non-tender and non-distended Extremity normal to inspection and full ROM Neuro moves all extremities Sensorium / Orientation: awake and alert Psych affect normal Results Lab / Micro Data Result Diagrams: 03/09/23 15:45 03/09/23 15:45 Labs: Laboratory Results - last 24 hr 03/09/23 15:45: WBC 6.8, RBC 4.02 L, Hgb 14.5, Hct 39.6, MCV 98.5, MCH 36.1 H, MCHC 36.6 H, RDW Std Deviation 43.6, RDW Coeff of Mook 12.0, Plt Count 225, MPV 9.1, Immature Gran % (Auto) 0.400, Neut % (Auto) 74.6 H, Lymph % (Auto) 15.5 L, [place] % (Auto) 8.9, Eos % (Auto) 0.0, Baso % (Auto) 0.6, Absolute Neuts (auto) 5.1, Absolute Lymphs (auto) 1.06, Nucleated RBC % 0 03/09/23 15:45: Sodium 129 L, Potassium 3.1 L, Chloride 92 L, Carbon Dioxide 21.0, Anion Gap 16 H, BUN 9, Creatinine 0.45 L, Estim Creat Clear Calc 120.85, Est GFR (MDRD) Af Amer 192, Est GFR (MDRD) Non-Af 159, BUN/Creatinine Ratio 19.9, Glucose 52 L, Calcium 8.2 L 03/09/23 15:45: Ethyl Alcohol 203.0 03/09/23 16:40: Urine Opiates Screen NEGATIVE, Urine Methadone Screen NEGATIVE, Ur Barbiturates Screen NEGATIVE, Ur Phencyclidine Scrn NEGATIVE, Ur Amphetamines Screen NEGATIVE, MDMA (Ecstasy) Screen NEGATIVE, U Benzodiazepines Scrn NEGATIVE, Urine Cocaine Screen NEGATIVE, U Cannabinoids Screen POSITIVE H, Ur Drug Screen Comment Assessment & Plan Assessment/Plan (1) Alcohol withdrawal: PLAN: Currently mild at this time but patient still has alcohol in her system Will put in for a phenobarbital taper as well as additional medications to help with other somatic complaints with her withdrawal. [facility] to see 03/12 and arrange oupt follow-up (2) Benzodiazepine abuse: PLAN: Complicates care and recovery. Consider a gabapentin taper upon discharge. (3) Hypokalemia: PLAN: Chronic. Patient does take potassium supplementation as outpatient. Continue with her 20 mill equivalents twice daily but also give her additional 40 today. Check magnesium level and replace if low. (4) Protein calorie malnutrition: PLAN: Add supplements. PLAN: Plan Chronic conditions * Chronic back pain with a history of spinal surgery: Complicates care and long- term recovery * Multiple sclerosis: Not any current medications. Follow-up with neurology as outpatient. * Anxiety: Hold off on any benzodiazepines given above. * COPD: Per history. Continue with her bronchodilators. VTE prophylaxis: Low risk. Encourage ambulation. Charges/Coding Visit Charges Inpatient E&M: 02627 Init Hosp L2
[2023-03-09 17:51] LABS: Internal QC Validated? YES +Cl - CLEAR BKGD; Pregnancy, Urine Negative Negative
[2023-03-09 18:48] VITALS: BMI 17.3
[2023-03-09 18:50] VITALS: BP 127/81; PULSE 91; RESP 16; TEMP 36.8; O2SAT 97
[2023-03-09] MEDS: Ondansetron 8 MG Tablet PO (19:22)
[2023-03-09] MEDS: Phenobarbital 32.4 MG Tablet 64.8 MG PO ×2 (19:22→22:03)
[2023-03-09] MEDS: Potassium Chloride Oral Tablet 20 MEQ 40 MEQ PO (19:22)
[2023-03-09] MEDS: Albuterol 2.5 MG/3 ML VIAL.NEB. INHALATION (19:29)
[2023-03-09] MEDS: Budesonide Respules 0.5 MG/2 ML AMPUL.NEB. INHALATION (19:29)
[2023-03-09] MEDS: Acetaminophen 500 MG Tablet PO ×2 (19:29→20:15)
[2023-03-09 19:48] VITALS: PULSE 82; RESP 14
[2023-03-09] MEDS: Dicyclomine 10 MG Capsule 20 MG PO (20:14)
[2023-03-09] MEDS: hydrOXYzine PAM 25 MG Capsule 50 MG PO (20:16)
[2023-03-09] MEDS: Gabapentin 300 MG Capsule PO (21:23)
[2023-03-09] MEDS: traZODone 100 MG Tablet PO (22:04)
[2023-03-10] VITALS (10 sets, daily range): BP systolic 127–136; BP diastolic 77–96; PULSE 67–92; RESP 14–20; TEMP 36.6–36.9; O2SAT 95–100
[2023-03-10] MEDS: Phenobarbital 32.4 MG Tablet 64.8 MG PO ×6 (02:26→22:04)
[2023-03-10] MEDS: hydrOXYzine PAM 25 MG Capsule 50 MG PO (06:25)
[2023-03-10] MEDS: Budesonide Respules 0.5 MG/2 ML AMPUL.NEB. INHALATION ×2 (07:03→19:22)
[2023-03-10] MEDS: Albuterol 2.5 MG/3 ML VIAL.NEB. INHALATION ×4 (07:03→19:23)
[2023-03-10 07:06] LABS: Anion Gap 7 (5-15); BUN 7 mg/dL (7-18); BUN/Creat Ratio 12.4 RATIO (10-20); Calcium,Total 8.9 mg/dL (8.5-10.1); Chloride 105 mmol/L (98-107); Creatinine, Serum 0.56 mg/dL (0.55-1.02); EST Glomerular Filtration Rate 123 mL/min (>60); Est Glom Filt Rate - Afr Amer 148 mL/min (>60); Estimated Creatinine Clearance 90.79 ml/min; Glucose 65 mg/dL (74-106); Magnesium 2.2 mg/dL (1.6-2.6); Potassium 4.3 mmol/L (3.5-5.1); Sodium Level 137 mmol/L (136-145)
--- NOTE | 2023-03-10 07:33 | PCM.PN.HOSP ---
Reason for Visit Reason for Visit: Diagnoses Unspecified protein-calorie malnutrition (03/09/23) Hypokalemia (03/09/23) Alcohol use, unspecified with withdrawal, unspecified (03/09/23) Sedative, hypnotic or anxiolytic abuse, uncomplicated (03/09/23) Subjective Subjective Patient is a 48-year-old lady with history of primary chronic progressive multiple sclerosis, chronic alcohol dependence as well as benzo diazepam dependence presented with withdrawal from both alcohol and benzos. Admitted to regular nursing floor for medical management Objective Data Objective Data Vital Signs: Vital Signs Temp Pulse Resp BP Pulse Ox O2 Del Method O2 Flow Rate 98.3 F 84 20 H 134/84 H 99 Nasal Cannula 3 03/10/23 06:00 03/10/23 07:03 03/10/23 07:03 03/10/23 06:00 03/10/23 07:03 03/10/23 07:03 03/10/23 07:03 Oxygen Flow Rate (L/min) 3 Oxygen Delivery Method Nasal Cannula Weight: 45.813 kg Body Mass Index (BMI) 17.3 Intake & Output: Intake and Output for Last 24 Hours 03/08/23 03/09/23 03/10/23 23:59 23:59 23:59 Intake Total 1000 / 1800 800 / 800 Balance 1000 / 1800 800 / 800 Lab / Micro Data Result Diagrams: 03/09/23 15:45 03/10/23 06:10 Labs: Laboratory Results - last 24 hr 03/09/23 15:45: WBC 6.8, RBC 4.02 L, Hgb 14.5, Hct 39.6, MCV 98.5, MCH 36.1 H, MCHC 36.6 H, RDW Std Deviation 43.6, RDW Coeff of Mook 12.0, Plt Count 225, MPV 9.1, Immature Gran % (Auto) 0.400, Neut % (Auto) 74.6 H, Lymph % (Auto) 15.5 L, [place] % (Auto) 8.9, Eos % (Auto) 0.0, Baso % (Auto) 0.6, Absolute Neuts (auto) 5.1, Absolute Lymphs (auto) 1.06, Nucleated RBC % 0 03/09/23 15:45: Sodium 129 L, Potassium 3.1 L, Chloride 92 L, Carbon Dioxide 21.0, Anion Gap 16 H, BUN 9, Creatinine 0.45 L, Estim Creat Clear Calc 120.85, Est GFR (MDRD) Af Amer 192, Est GFR (MDRD) Non-Af 159, BUN/Creatinine Ratio 19.9, Glucose 52 L, Calcium 8.2 L 03/09/23 15:45: Ethyl Alcohol 203.0 03/09/23 16:40: Urine Opiates Screen NEGATIVE, Urine Methadone Screen NEGATIVE, Ur Barbiturates Screen NEGATIVE, Ur Phencyclidine Scrn NEGATIVE, Ur Amphetamines Screen NEGATIVE, MDMA (Ecstasy) Screen NEGATIVE, U Benzodiazepines Scrn NEGATIVE, Urine Cocaine Screen NEGATIVE, U Cannabinoids Screen POSITIVE H, Ur Drug Screen Comment 03/09/23 16:40: Urine Test Negative 03/09/23 22:50: COVID-19 (CARLOS) Not Detected 03/10/23 06:10: Sodium 137, Potassium 4.3, Chloride 105, Carbon Dioxide 25.0, Anion Gap 7, BUN 7, Creatinine 0.56, Estim Creat Clear Calc 90.79, Est GFR (MDRD) Af Amer 148, Est GFR (MDRD) Non-Af 123, BUN/Creatinine Ratio 12.4, Glucose 65 L, Calcium 8.9, Magnesium 2.2 Physical Exam Narrative GENERAL: cooperative HEENT: Atraumatic; normocephalic EYES; Anicteric, Normal Conjunctiva NECK; supple, normal thyroid, RESPIRATORY: Diminished to auscultation CARDIOVASCULAR: Regular S1 S2, GI: soft, normoactive bowel sounds, : No Renal angle tenderness; EXTREMITIES: No edema, no clubbing, MUSCULOSKELETAL: no muscle wasting NEURO: Awake; no lateralizing signs. SKIN: No Rash PSYCH; Flat affect Assessment & Plan Assessment/Plan (1) Desire for detoxification: (2) Alcohol withdrawal: (3) Benzodiazepine abuse: PLAN: Plan Patient is a 48-year-old lady with history of primary chronic progressive multiple sclerosis, chronic alcohol dependence as well as benzo diazepam dependence presented with withdrawal from both alcohol and benzos. Admitted to regular nursing floor for medical management 1. Acute alcohol withdrawal ? Patient has been placed on phenobarb taper in addition to symptomatic management of her other symptoms 2. Acute benzodiazepine withdrawal ? Patient is on phenobarb taper with plans for patient to be discharged with gabapentin taper on discharge 3. Hypokalemia ? Corrected per protocol please on daily supplemental potassium 4. COPD ? Aerosol treatment as needed 5. Multiple sclerosis ? Chronic progressive currently stable 6. Chronic back pain ? With previous history of spinal surgery 7. DVT prophylaxis ? Low risk plan is encouraging ambulation Time spent in the patient's overall evaluation,decision-making process, review of diagnostic data, adjustment of management, discussion with other providers, nursing nursing and ancillary staff involved in patient's care documentation, 40 Minutes Charges/Coding Visit Charges Inpatient E&M: 72862 Subs Hosp L2
[2023-03-10] MEDS: Gabapentin 300 MG Capsule PO ×2 (09:36→20:21)
[2023-03-10] MEDS: Potassium Chloride Oral Tablet 20 MEQ PO ×2 (09:36→15:11)
[2023-03-10] MEDS: Acetaminophen 500 MG Tablet PO ×2 (09:36→15:18)
[2023-03-10] MEDS: Folic Acid 1 MG Tablet PO (09:37)
[2023-03-10] MEDS: Thiamine Hydrochloride 100 MG Tablet PO (09:37)
--- NOTE | 2023-03-10 09:59 | ADDICTION ---
This marketing writer met with client who was admitted 03/09/23 for ETOH detox. Information updated from chart and self-report from client. Client is a 47 year old female who reports she self-admitted to [facility]. Client does have respiratory issues and is on droplet precautions at this time. She lives alone, has her recently left her and she has utility bills that need paid, she reports she needs help to pay her bills. Initially client was cooperative with this marketing writer. After approx. 15 min and a few questions client pulled blankets over her head and started yelling at this marketing writer. Client does report daily use of ETOH, prescribed Ativan 0.5 mg TID, Medical Marijuana that she uses daily. Client reports she plans to continue with medical marijuana and if she cant handle the stress she will continue to take prescribed Ativan. Client verbalizes frustration that she is not able to have Ativan while in the hospital. Client reports she sees a counselor monthly at [facility]. When asked if client has thought about treatment/discharge plans. Client indicated someone set a place up for me to go. Client was unsure who set up the discharge plan, she stated she thought her sister scheduled her to go somewhere. Client was unable to identify details of discharge plan. This attempted to inquire and request client to sign JOVON for sister in order for this marketing writer to contact sister. Client became angry, started yelling that she was done talking. Nurse notified of encounter. [facility] coordinator notified that dishcharge plan will need completed/confirmed. Client will remain in hospital this weekend.
[2023-03-10] MEDS: BENZOCAINE/MENTHOL 1 LOZENGE 2 LOZENGE MUCOUS MEM (11:35)
--- NOTE | 2023-03-10 12:23 | NURSING ---
This RN spoke to pt's sister, Rosalie on the phone. Rosalie said she is very concerned for pt's well being if she goes home. Sister said the pt needs to go to inpatient treatment. Said pt's home life is not stable. Pt's sister was asking about options at discharge. This RN consulted case management so they can provide sister and pt with resources.
--- NOTE | 2023-03-10 16:55 | CASEMGMT ---
Social Work Note SW met with patient's RN to review recent events as well as patient's needs. RN reviewing AOD history and concerns voiced by patient's sister regarding patient's AOD use as well as need for community resources. SW met with patient and introduced herself and role as [facility] Digital Marketing Associate. Patient reports she is eating and requests SW come back later. SW explained she will return if time allows, otherwise SW will follow up on Sunday. LIZ updated RN. Miley Almeida MSW, GARRETT
[2023-03-10] MEDS: Acetaminophen 500 MG Tablet 1000 MG PO (20:30)
[2023-03-10] MEDS: traZODone 100 MG Tablet PO (22:04)
[2023-03-11] VITALS (9 sets, daily range): BP systolic 106–123; BP diastolic 78–84; PULSE 68–90; RESP 18–24; TEMP 36.6–36.9; O2SAT 96–100
[2023-03-11] MEDS: Phenobarbital 32.4 MG Tablet 64.8 MG PO ×6 (03:52→22:56)
--- NOTE | 2023-03-11 07:29 | PN.HOSP_ITS ---
Reason for Visit Reason for Visit: Diagnoses Unspecified protein-calorie malnutrition (03/09/23) Hypokalemia (03/09/23) Alcohol use, unspecified with withdrawal, unspecified (03/09/23) Sedative, hypnotic or anxiolytic abuse, uncomplicated (03/09/23) Subjective Subjective Patient admitted to regular nursing floor for detox. Currently tolerating the phenobarb taper. Patient complains of being congested started on guaifenesin and adjusted her aerosol treatment Objective Data Objective Data Vital Signs: Vital Signs Temp Pulse Resp BP Pulse Ox O2 Del Method O2 Flow Rate 98.2 F 68 18 119/79 100 Nasal Cannula 3 03/11/23 03:47 03/11/23 03:47 03/11/23 03:47 03/11/23 03:47 03/11/23 03:47 03/11/23 03:47 03/11/23 03:47 Oxygen Flow Rate (L/min) 3 Oxygen Delivery Method Nasal Cannula Weight: 45.813 kg Body Mass Index (BMI) 17.3 Intake & Output: Intake and Output for Last 24 Hours 03/09/23 03/10/23 03/11/23 23:59 23:59 23:59 Intake Total 1000 / 1800 1300 / 1300 200 / 200 Balance 1000 / 1800 1300 / 1300 200 / 200 Medical Nutrition Assessment Dietitian: Malnutrition Criteria Met Start: 03/10/23 10:31 Freq: Status: Active Protocol: Document 03/10/23 10:31 [facility] (Rec: 03/10/23 10:31 [facility] [id number]) Nutrition Malnutrition Evidence of Malnutrition Exists Yes Malnutrition (severe): Social/Behavioral/ Environmental Evidenced By Suboptimal Energy Intake ( Severe),Weight Loss (Severe), Physical Changes (Severe) Clinical Problem Chronic Disease or Condition Related Malnutrition Etiology related to inadequate energy intake Signs/Symptoms as evidenced by <75% of est nutritional needs in past several months, no po intake since hospitalized, 25.9% wt loss x 3 yrs with BMI <18, and fat/muscle loss throughout body. Status Active Problem Recommendation Dietitian Recommendations/Changes Will continue regular diet w/ ensure plus high protein tid w / medpass. Will provide ONS w/ meals for increased nutrition if consumed. Lab / Micro Data Result Diagrams: 03/09/23 15:45 03/10/23 06:10 Micro: Microbiology 03/09/23 22:50 Mucosa - Nasopharyngeal Respiratory Panel (PCR) - Final Physical Exam Narrative GENERAL: cooperative HEENT: Atraumatic; normocephalic EYES; Anicteric, Normal Conjunctiva NECK; supple, normal thyroid, RESPIRATORY: Diminished to auscultation CARDIOVASCULAR: Regular S1 S2, GI: soft, normoactive bowel sounds, : No Renal angle tenderness; EXTREMITIES: No edema, no clubbing, MUSCULOSKELETAL: no muscle wasting NEURO: Awake; no lateralizing signs. SKIN: No Rash PSYCH; Flat affect Assessment & Plan Assessment/Plan (1) Desire for detoxification: (2) Alcohol withdrawal: (3) Benzodiazepine abuse: PLAN: Plan Patient is a 48-year-old lady with history of primary chronic progressive mu ltiple sclerosis, chronic alcohol dependence as well as benzo diazepam dependence presented with withdrawal from both alcohol and benzos. Admitted to regular nursing floor for medical management 1. Acute alcohol withdrawal ? Patient has been placed on phenobarb taper in addition to symptomatic ma nagement of her other symptoms 2. Acute benzodiazepine withdrawal ? Patient is on phenobarb taper with plans for patient to be discharged with gabapentin taper on discharge 3. Hypokalemia ? Corrected per protocol please on daily supplemental potassium 4. COPD ? Aerosol treatment as needed 5. Multiple sclerosis ? Chronic progressive currently stable 6. Chronic back pain ? With previous history of spinal surgery 7. DVT prophylaxis ? Low risk plan is encouraging ambulation Time spent in the patient's overall evaluation,decision-making process, review of diagnostic data, adjustment of management, discussion with other providers, nursing nursing and ancillary staff involved in patient's care documentation, 35 minutes Charges/Coding Visit Charges Inpatient E&M: 39023 Subs Hosp L2
[2023-03-11] MEDS: Albuterol 2.5 MG/3 ML VIAL.NEB. INHALATION ×5 (07:35→23:09)
[2023-03-11] MEDS: Budesonide Respules 0.5 MG/2 ML AMPUL.NEB. INHALATION ×2 (07:35→19:02)
[2023-03-11] MEDS: BENZOCAINE/MENTHOL 1 LOZENGE 2 LOZENGE MUCOUS MEM (08:05)
[2023-03-11] MEDS: Dicyclomine 10 MG Capsule 20 MG PO (08:05)
[2023-03-11] MEDS: Gabapentin 300 MG Capsule PO (08:06)
[2023-03-11] MEDS: Ondansetron 8 MG Tablet PO (08:06)
[2023-03-11] MEDS: Thiamine Hydrochloride 100 MG Tablet PO (08:06)
[2023-03-11] MEDS: Potassium Chloride Oral Tablet 20 MEQ PO ×2 (08:06→16:17)
[2023-03-11] MEDS: Folic Acid 1 MG Tablet PO (08:06)
[2023-03-11] MEDS: guaiFENesin 1,200 MG Tablet 1200 MG PO ×2 (09:34→23:08)
[2023-03-11] MEDS: hydrOXYzine PAM 25 MG Capsule 50 MG PO ×4 (10:06→23:08)
[2023-03-11] MEDS: Acetaminophen 500 MG Tablet 1000 MG PO ×2 (16:17→23:08)
[2023-03-11] MEDS: traZODone 100 MG Tablet PO (22:56)
[2023-03-12] MEDS: Albuterol 2.5 MG/3 ML VIAL.NEB. INHALATION ×3 (02:37→12:03)
[2023-03-12 02:38] VITALS: PULSE 67; RESP 18
[2023-03-12 04:02] VITALS: BP 110/79; PULSE 76; RESP 18; TEMP 36.8; O2SAT 100
[2023-03-12] MEDS: Phenobarbital 32.4 MG Tablet 64.8 MG PO ×3 (04:05→15:05)
[2023-03-12] MEDS: Acetaminophen 500 MG Tablet 1000 MG PO ×2 (06:40→11:31)
[2023-03-12] MEDS: Dicyclomine 10 MG Capsule 20 MG PO (06:43)
[2023-03-12] MEDS: hydrOXYzine PAM 25 MG Capsule 50 MG PO ×3 (06:44→16:08)
[2023-03-12 07:32] VITALS: PULSE 70; RESP 20; O2SAT 94
[2023-03-12] MEDS: Budesonide Respules 0.5 MG/2 ML AMPUL.NEB. INHALATION (07:32)
[2023-03-12 08:43] VITALS: BP 123/77; PULSE 85; RESP 19; TEMP 37.1; O2SAT 100
[2023-03-12] MEDS: Gabapentin 300 MG Capsule PO (08:45)
[2023-03-12] MEDS: Potassium Chloride Oral Tablet 20 MEQ PO (08:47)
[2023-03-12] MEDS: Folic Acid 1 MG Tablet PO (08:48)
[2023-03-12] MEDS: Thiamine Hydrochloride 100 MG Tablet PO (08:49)
[2023-03-12] MEDS: guaiFENesin 1,200 MG Tablet 1200 MG PO (08:54)
[2023-03-12] MEDS: Ensure Plus High Protein 120 ML LIQUID PO ×2 (08:55→11:25)
--- NOTE | 2023-03-12 11:11 | DS.PCM_ITS ---
Providers Date of Admission: 03/09/23 Primary Care Physician: Karina Felder NP Reason For Visit: ALCOHOL WITHDRAWL Diagnosis Discharge Diagnosis (1) Desire for detoxification: Status: Acute (2) Alcohol withdrawal: Status: Acute Code(s): F10.939 - Alcohol use, unspecified with withdrawal, unspecified (3) Benzodiazepine abuse: Status: Acute Code(s): F13.10 - Sedative, hypnotic or anxiolytic abuse, uncomplicated Medications at Discharge Home Medications albuterol sulfate 90 mcg/actuation aerosol inhaler 8.5 - 17 gm IH Q6H PRN Sob &/Or Wheezing 12/20/18 fluticasone furoate 100 mcg-vilanterol 25 mcg/dose inhalation powder 1 ea IH DAILY Breathing 12/20/18 albuterol sulfate 90 mcg/actuation aerosol inhaler (Ventolin HFA) 2 puff inhalation Q4H PRN PRN Wheezing ##1 03/17/19 guaifenesin 600 mg tablet, extended release 12 hr (Mucus Relief ER) 1,200 mg PO BID mucous 03/11/23 nicotine 21 mg/24 hr daily transdermal patch 21 mg transdermal DAILY 30 days #30 ea 03/12/23 potassium chloride 20 mEq tablet,extended release(part/cryst) (Klor-Con M) 20 meq PO DAILY 30 days #30 tabs 03/12/23 Hospital Course Summary of Care Provided Minutes Spent on Discharge: 32 Hospital Course: JOSE GUADALUPE GOMEZ, is a 47 F who presents seeking treatment for alcohol withdrawal.? Patient drinks at least 6 16 ounce beers per day but also takes roughly 1.5 mg of lorazepam daily and utilizes medical marijuana.? Patient expresses desire to get off all all substances.? Patient's last drink of alcohol was around 10 AM the day of admission her alcohol level was 203. She underwent detox with phenobarbital and her symptoms in that regard improved but she had complicated psychosocial situations and was very anxious. Supportive care provided. On day of discharge she was mostly anxious but was not having any symptoms of withdrawal. Intended to resume her Ativan on discharge that that is not advised. Discharge instructions as followed: -Recommend daily MiraLAX to keep bowel movements regular -Take potassium 20 mill equivalents daily, would recommend repeating BMP to check your potassium in 2 to 3 days Physical Exam Narrative General: Alert, oriented HEENT: Atraumatic, normocephalic Eyes: Anicteric, normal conjunctiva, extraocular movements grossly intact Neck: Supple Respiratory: Diffuse wheezing, normal respiratory effort Cardiovascular: Regular rate and rhythm GI: Slightly distended due to not having bowel movement, no rebound, guarding, rigidity Extremities: No edema Musculoskeletal: Moving all extremities Neuro: No overt focal neurological deficits Skin: No rashes appreciated Psych: Tearful and anxious Medical Records Data Medical Nutrition Assessment Dietitian: Malnutrition Criteria Met Start: 03/10/23 10:31 Freq: Status: Active Protocol: Document 03/10/23 10:31 [facility] (Rec: 03/10/23 10:31 [facility] [id number]) Nutrition Malnutrition Evidence of Malnutrition Exists Yes Malnutrition (severe): Social/Behavioral/ Environmental Evidenced By Suboptimal Energy Intake ( Severe),Weight Loss (Severe), Physical Changes (Severe) Clinical Problem Chronic Disease or Condition Related Malnutrition Etiology related to inadequate energy intake Signs/Symptoms as evidenced by <75% of est nutritional needs in past several months, no po intake since hospitalized, 25.9% wt loss x 3 yrs with BMI <18, and fat/muscle loss throughout body. Status Active Problem Recommendation Dietitian Recommendations/Changes Will continue regular diet w/ ensure plus high protein tid w / medpass. Will provide ONS w/ meals for increased nutrition if consumed. Weight / BMI Weight Weight: 45.813 kg Body Mass Index (BMI) 17.3 ABG / Lab / Microbiology Data Result Diagrams: 03/09/23 15:45 03/10/23 06:10 Microbiology: Microbiology 03/09/23 22:50 Mucosa - Nasopharyngeal Respiratory Panel (PCR) - Final D/C Instructions Discharge Diet: No restrictions Meaningful Use Info Meaningful Use Diagnoses (Choose all that apply): None applicable Discharge Plan Admission Admit Date/Time: 03/09/23 17:46 Primary Reason for Your Visit: Alcohol detox Attending Provider: Chyna Caban Primary Care Provider: Karina Felder NP Consulting Providers: Alex Flores ; Bryant Isbell Instructions Patient Instructions: Addiction Questionnaire, Addiction: Getting Help, Addict ion Recovery Counseling Additional Instructions / Restrictions: -Recommend daily MiraLAX to keep bowel movements regular -Take potassium 20 mill equivalents daily, would recommend repeating BMP to check your potassium in 2 to 3 days Discharge Orders/Prescriptions Prescriptions: New potassium chloride [Klor-Con M20] 20 mEq Tablet,Er Particles/Crystals 20 meq PO DAILY 30 Days Qty: 30 0RF nicotine 21 mg/24 hr Patch 24 Hour 21 mg transdermal DAILY 30 Days Qty: 30 0RF Continued albuterol sulfate 8.5 GM HFA aerosol inhaler 8.5 - 17 gm IH Q6H PRN (Reason: Sob &/Or Wheezing) fluticasone furoate-vilanterol 1 EACH blister with device 1 ea IH DAILY albuterol sulfate [Ventolin HFA] 1 INHALER inhaler 2 puff inhalation Q4H PRN PRN (Reason: Wheezing) Qty: 1 0RF guaifenesin [Mucus Relief ER] 600 mg tablet extended release 12hr 1,200 mg PO BID Discontinued lorazepam [Ativan] 1 mg tablet 0.5 mg PO TID PRN (Reason: anxiety) Referrals / Follow Up: Karina Felder NP, [facility] ATTENDANT-C [Primary Care Provider] - Within 1 Week Disposition Disposition (needs filled in before D/C Order can be placed): DC/Tx to Another Type of HCF Charges/Coding Visit Charges Inpatient E&M: 27479 Disch Hosp >30min
[2023-03-12] MEDS: Senna/Docusate Sodium 1 Tablet 2 TABLET PO (11:31)
[2023-03-12] MEDS: Polyethylene Glycol 3350 17 GM PACKET PO (11:31)
--- NOTE | 2023-03-12 12:01 | CASEMGMT ---
Addendum entered by Saima Huynh 03/12/23 12:10: SW also spoke to disability specialist regarding pt testing negative for benzo medications even though pt shared takes meds regularly. ehs specialist shared pt sister had reported dumping pt's medication down the toilet a few weeks ago because they were concerned with pt taking this med with alcohol. Original Note: Social Work SW in to pt room to complete SDTN assessment. SW introduced self and role at [facility]. Pt agreeable to discussion. SW explained process of assessment and pt tearful when discussing not only losing home but step son as well. Pt explained SO left 2 months ago and took son away as well. Pt has been living alone in a trailer in [place] that was co-owned with SO. SO recently signed off the trailer title so pt lived there on own for past two months but did not have fiances to cover utilities. Pt also explained has not had a lot of food the past two months. Pt concerned about living situation. Pt plans to sell the trailer but the talent specialist has to be approved by parking meter collector first. Pt current with [facility] and has worked out a discharge plan with the disability specialist to go to a residential treatment facility. SW provided resources for food, utility assistance, and housing in the event that pt will need these once inpatient treatment has been completed. Pt voiced understanding, explained will utilize these resources when the time is right. SW asked if pt has any other concerns and pt shared has been upset regarding treatment received while here at [facility]. Pt explained aid or nurse has expected pt to change bedsheet on own and also pt was brought cold food. SW discussed pt advocate, Tigre, and pt requested to speak with Tigre at this time. SW called Tigre to inform and update on pt concerns. Tigre shared would be over to discuss concerns with pt within next 30 minutes. AKBAR Bobo
[2023-03-12 12:03] VITALS: PULSE 75; RESP 18
--- NOTE | 2023-03-12 12:45 | CASEMGMT ---
Addendum entered by Nilda Chaparro 03/12/23 13:32: Pt placed call to her and made him aware she would like to merchandise pickup/receiving associate her oxygen equipment today. He told her he would take the equipment to her trailer today. She states this would work well. She states she will pick it up @ her trailer today before going to her sister's home. Pt states she needs some of her rx's refilled that she was taking prior to coming to the hospital, including Mucinex and Dulera inhaler 200 mcg's (she has 100 mcg's but states she is supposed to be taking 200 mcg). She states she got them from [facility] and does not know if there are refills remaining. Pt also states she needs Ativan, Vistaril, and Trazadone. Per Radhika, radiologic electronic specialist, she informed pt that she cannot go to the residential tx center on Ativan and also she recommends pt not discharge on PRN's that were started while @ [facility]. Pt made aware and states is okay w/not taking the Ativan and Trazadone, but requesting refill on Vistaril, as she was taking that @ home and states she got that from [facility]. Call placed to [facility] to inquire if there are refills available for Mucinex and Dulera. They are closed for lunch. XAVIER METCALF to attempt after 2 PM. Original Note: XAVIER METCALF NOTE: Pt being discharged and RN CM informed pt states she wears home O2 but that she returned it to the [facility]. RN CM to room. Introduced self and role. Pt states her home O2 was through [facility] [place] and states her sister called [facility] before coming to the hospital, as pt thought she was going to residential tx center @ discharge. Pt states she will be going to her sister, Rosalie's home, in [place] and will need the oxygen @ her sister's home. Call to Emmy @ [facility] [place]. Per Emmy, they had received a request to pick the oxygen up at pt's home, but had not done so, as they did not have the approval from the physician. She states she spoke w/pt's (they are ), who reports pt set it outside her home to be picked up, but that he () picked it up and took it to his home in [place] d/t he was the one being billed for it. Pt made aware of same. Pt requested permission to call her to inquire if he wiil allow her to merchandise pickup/receiving associate the equipment today. RN, Leonora, made aware of pt's request and states is agreeable to same. Jocelyn KOTHARI RN CM
--- NOTE | 2023-03-12 14:00 | CHAPLAIN ---
Type of Pastoral Visit _x__ Initial Visit ___ Follow-up Visit ___ On-call Visit ___ General Patient Visit ___ Spiritual Assessment ___ Family Conference ___ Bereavement ___ Rapid Response ___ Code Blue ___ Other (describe below) Pastoral Care Referral From _x__ Patient ___ Family ___ Nurse ___ Physician ___ Forensic Science Technician ___ Mold Parter ___ Other (describe below) Sacrament/Intervention _x__ Active listening ___ Anointing ___ Restorationist ___ Bereavement ___ Communion _x__ Carmelita exploration ___ _x__ Life review _x__ Prayer ___ Reconciliation ___ Sacrament of Sick _x__ Supportive presence ___ Wedding ___ Other (describe below) Pastoral Comments patient gives life review especially of recent months; pt is tearfully distraught about losing home, step son, and has limited resources to live on; pt states she has lost over 30 pounds; pt will go to sister's home until she can enter rehab set up by event marketing specialist; pt states that she is Mor[employer] and though not living like one she still believes and wants to go back to her holiness family; patient advocate and CM both come to see pt during this visit; pt requests prayer; pt did not eat her lunch while these visits were taking place and said it's already been warmed up once, they can warm it up again, I don't care;
[2023-03-12 14:56] VITALS: O2SAT 88; O2SAT 92; O2SAT 94
--- NOTE | 2023-03-12 15:16 | CASEMGMT ---
Addendum entered by Ольга North 03/12/23 16:04: XAVIER METCALF and pt sister into pt room, pt aware of plan. She gave sister her keys. Her sister will be back to get pt with oxygen in car. Pt and sister deny further needs. Addendum entered by Ольга North 03/12/23 15:53: Pt sister called in and states she does not feel comfortable taking pt to her home to get all of the oxygen. She is currently outside the main entrance of [facility]. She is willing to get the pt keys and go to the home and fiber picker the oxygen and be present for [facility] to switch out the portable tanks then come back to pick pt up. She will ask for XAVIER METCALF when she arrives to floor. Addendum entered by Ольга North 03/12/23 15:41: Spoke with Mary at [facility], they will meet pt at 4:15pm to switch out her portable tanks. Pt arranged this, but called to confirm. Referral for updated rx sent to [facility] via [facility] at this time. Original Note: XAVIER METCALF notified that pt wants refills of her Dulera 200, vistaril and mucinex. Messaged hospitalist who is ok for pt to have all of these meds. TC to [facility] [place], pt has mucinex ready at the [facility] and the [place] branch does not have it in stock. Pt does have refills of the Dulera 200 but they do not have it and can order it and will have tomorrow. TC to [facility], per pharmacist, there is not refills on the vistaril. XAVIER METCALF also notified pt needs 2L oxygen with exertion. XAVIER METCALF into pt room to make aware of the above meds. She is aware. She states she has called [facility] and they will have her vistaril filled for her in an hour. She is aware they stated they did not have refills. Pt states her ex is delivering her oxygen to her house. She states she has portable oxygen but she does not want her sister to go get it. She asks to be wheeled in a w/c to the car and she will get the oxygen on her before she gets out of the car and ambulates. She is aware she needs 2L with exertion as well. Pt denies further needs.
== END 2023-03-12 17:36 | disposition other institution (70) | DRG 896 ==
LOC: ED 16:46 → MS3 16:59
PROVIDERS: Family Medicine; Nurse Practitioner; Emergency Provider Emergency Medicine; PCP Nurse Practitioner Primary Care; Visit Provider Internal Medicine
DX: F10.129 Alcohol abuse with intoxication, unspecified (principal); E43 Unspecified severe protein-calorie malnutrition; Z68.1 Body mass index [BMI] 19.9 or less, adult; J43.9 Emphysema, unspecified; G35 Multiple sclerosis; F10.239 Alcohol dependence with withdrawal, unspecified; F13.239 Sedative, hypnotic or anxiolytic dependence with withdrawal, unspecified; E87.6 Hypokalemia; F12.90 Cannabis use, unspecified, uncomplicated; M79.7 Fibromyalgia; F17.210 Nicotine dependence, cigarettes, uncomplicated; F41.9 Anxiety disorder, unspecified; G89.29 Other chronic pain; F43.12 Post-traumatic stress disorder, chronic; Y90.7 Blood alcohol level of 200-239 mg/100 ml; Z79.899 Other long term (current) drug therapy
CPT/HCPCS: 36415; 80048; 80307; 81025; 82077; 83735; 85025; 87633; 87635; 94640; 94667; 94668; 97802; 99282; 99406; J7030; A4216; U0003; U0005